=== PATIENT | male | born 1975 | race Caucasian/White ===

== ENCOUNTER 2020-03-15 08:56 | Outpatient (RCR) | payer OTHER, SELFPAY ==
--- NOTE | 2020-03-15 12:56 | MHC.PT.DC ---
[facility] [place] [facility] [place] [facility] [place] [facility] [address] Aman Douglass [address] [phone] F: [phone] F: [phone] F: [phone] F: [phone] Physical Therapy Discharge Report Diagnosis: M54.5 low back pain Date of Surgery: N/A Date of Evaluation: 02/20/20 Date of Discharge: 03/15/20 Treatments to Date: 7 Cancellations to Date: 1 No Shows to Date: 0 Discharge Status: Achieved Goals Discharge Summary: The patient has reported a statistically significant improvement in his self-reported outcome measure, Gisele. He has reached all goals established at the initial evaluation. He is independent with his home exercise program including management of his radicular symptoms. He reported he rarely gets pain in his calf anymore and it is localized to left glute. He requires less cueing for therapeutic exercises and is ready to discharge to home exercise program. Re-educated the patient to prioritize his repeated movements and left lower extremity stretching as maintenance for radicular symptoms. The patient is discharged from this physical therapy plan of care. Please sign and return to therapist. Thank you for your referral.
== END 2020-03-27 16:06 | disposition other institution (70) ==
LOC: HO.PT 08:56
PROVIDERS: PCP Internal Medicine; Visit Provider Internal Medicine
DX: M54.5 Low back pain (principal)
CPT/HCPCS: 97110

== ENCOUNTER 2020-05-18 08:11 | Outpatient (REF) | payer OTHER, SELFPAY | END 2020-05-18 08:12 | disposition home or self-care (01) | LOC: HO.LAB 08:11 | PROVIDERS: Visit Provider Internal Medicine | DX: Z13.89 Encounter for screening for other disorder (principal) ==

== ENCOUNTER 2020-08-31 07:09 | Outpatient (REF) | payer OTHER, SELFPAY ==
[2020-08-31 07:43] LABS: MANUAL DIFF FLAG NO
[2020-08-31 07:46] LABS: Glucose Urine UA NEG (NEG); Leukocyte Esterase Urine NEG (NEG); Nitrite Urine NEG (NEG); Specific Gravity - Urine 1.025 (1.005-1.025); Urine Blood NEG (NEG); Urine Ketones NEG (NEG); Urine Protein NEG (NEG-TRACE)
[2020-08-31 07:51] LABS: Appearance Urine CLEAR; Color Urine YELLOW
[2020-08-31 07:54] LABS: Basophils Percent Auto 0.8 % (0-2); Eosinophils Absolute Auto 0.1 X10*3/uL (0.0-0.4); Eosinophils Percent Auto 1.2 % (0-4); Hematocrit 44.9 % (42-52); Hemoglobin 15.6 g/dl (14.0-18.0); Imm Gran Abs Auto 0.03 X10*3/uL (0.00-0.03); Imm Gran Pct Auto 0.6 % (0.0-0.4); Lymphocytes Absolute Auto 1.8 X10*3/uL (1.2-4.9); Mean Corpuscular HGB Conc 34.7 g/dl (31.0-36.0); Mean Corpuscular Hemoglobin 31.7 pg (27.0-33.0); Mean Corpuscular Volume 91.3 fL (80-98); Mean Platelet Volume 10.6 fL (9.4-12.4); Monocytes Absolute Auto 0.6 X10*3/uL (0.1-1.2); Monocytes Percent Auto 12.3 % (2-11); Neutrophils Absolute Auto 2.6 X10*3/uL (2.0-8.3); Neutrophils Percent Auto 50.1 % (45-73); Platelet Count 245 X10*3/uL (160-400); Red Blood Count 4.92 X10*6/uL (4.60-5.80); Red Cell Distribution Width 12.8 % (11.0-16.0); White Blood Count 5.1 X10*3/uL (4.8-10.8)
[2020-08-31 08:04] LABS: RBC Urine 0 /HPF (0); WBC Urine 0 /HPF (0-4)
[2020-08-31 08:14] LABS: Alanine Aminotransferase 15 U/L (0-40); Albumin Level 4.2 g/dL (3.5-5.0); Alkaline Phosphatase 29 U/L (39-117); Anion Gap 11 (12-20); Aspartate Amino Transferase 14 U/L (5-37); Bilirubin Total 0.6 mg/dL (0.0-1.0); Blood Urea Nitrogen 13 mg/dL (9-16); Calcium 9.3 mg/dL (8.4-10.2); Carbon Dioxide 30 mmol/L (22-29); Chloride 103 mmol/L (96-108); Cholesterol 207 mg/dL; Estimated Glomerular Filt Rate > 60; Glucose Random 104 mg/dL (60-115); HDL Cholesterol 64 mg/dL; LDL Cholesterol Calculated 125 mg/dl; Potassium 4.6 mmol/L (3.3-5.1); Sodium 139 mmol/L (135-145); Total Protein 6.5 g/dL (6.5-8.0); Triglycerides 90 mg/dL
[2020-08-31 08:37] LABS: Free T4 (Free Thyroxine) 1.03 ng/dL (0.71-1.85); Prostate Specific Antigen Scr 1.27 ng/mL (<0.05-4.0); Thyroid Stimulating Hormone 1.23 uIU/mL (0.32-4.0)
[2020-09-02 04:37] LABS: Folate 11.9 ng/mL (> or = 4.0); Vitamin B12 458 pg/mL (200-900)
== END 2020-08-31 07:10 | disposition home or self-care (01) ==
LOC: HO.LAB 07:09
PROVIDERS: PCP Internal Medicine; Visit Provider Internal Medicine
DX: R35.0 Frequency of micturition (principal); E78.00 Pure hypercholesterolemia, unspecified; K21.9 Gastro-esophageal reflux disease without esophagitis
CPT/HCPCS: 36415; 80053; 80061; 81001; 82607; 82746; 84153; 84439; 84443; 85025

== ENCOUNTER 2020-09-17 10:51 | Outpatient (REF) | payer OTHER, SELFPAY ==
--- NOTE | ~2020-09-17 | US_ITS ---
EXAMINATION: US PELVIS LIMITED (BLADDER) CLINICAL INFORMATION: Frequency of micturition. COMPARISON: CT abdomen pelvis 03/17/2019. X-ray abdomen 01/06/2019. TECHNIQUE: Real-time imaging of the bladder. FINDINGS: BLADDER: Well distended and normal. Bilateral ureteral jets are demonstrated. Prevoid bladder volume is 782 mL. Postvoid bladder volume is 25 mL. The prostate gland measures 4.1 x 3 x 3.3 cm, volume 22 mL. US/US bladder IMPRESSION: Unremarkable exam..
== END 2020-09-17 10:52 | disposition home or self-care (01) ==
LOC: HO.US 10:51
PROVIDERS: Visit Provider Internal Medicine
DX: R35.0 Frequency of micturition (principal)
CPT/HCPCS: 76857

== ENCOUNTER 2020-10-13 10:46 | Emergency (ER) | payer OTHER, SELFPAY ==
--- NOTE | ~2020-10-13 | CT_ITS ---
EXAMINATION: CT ABDOMEN AND PELVIS WITHOUT CONTRAST CLINICAL INFORMATION: Abdominal flank pain. COMPARISON: None TECHNIQUE: Multidetector volumetric imaging was performed from the superior aspect of the liver through the pubic symphysis. Sagittal and coronal reformatted images were obtained on the technologist's workstation. This CT examination was performed using dose optimization techniques as appropriate, variously including the following: *Automated exposure control *Adjustment of mA and/or kV according to patient size (this includes techniques or standardized protocols for targeted exams where dose is matched to indication/reason for exam; i.e. extremities or head) *Use of iterative reconstruction technique DLP: 469 mGy-cm FINDINGS: LUNG BASES: The lung bases are clear. The heart size is normal. LIVER, GALLBLADDER, AND BILIARY TREE: The liver is normal in size, shape, and attenuation. No focal hepatic lesion or biliary ductal dilatation is present. The gallbladder is unremarkable with no evidence of radiopaque gallstones, gallbladder wall thickening, or obvious pericholecystic inflammatory changes. PANCREAS: Unremarkable. SPLEEN: Unremarkable. ADRENAL GLANDS: Unremarkable. KIDNEYS AND URETERS: The kidneys are normal in size, shape, and attenuation. No hydronephrosis, hydroureter, or calculi seen. There is bilateral perinephric stranding. BLADDER: Unremarkable. GASTROINTESTINAL TRACT: There is scattered stool and gas seen throughout the colon without any significant distention. The small bowel loops are normal caliber. Appendix is normal caliber. ABDOMINAL WALL: No significant hernia is appreciated. LYMPH NODES: Normal. VASCULAR: Unremarkable. PELVIC VISCERA: Unremarkable. OSSEOUS STRUCTURES: No lytic or sclerotic process seen. CT/CT abdomen pelvis wo con IMPRESSION: No acute intra-abdominal process seen. Mild constipation.
[2020-10-13 11:30] VITALS: BP 132/88; PULSE 71; RESP 16; TEMP 36.8; O2SAT 96; BMI 23.7
--- NOTE | 2020-10-13 14:27 | ED_ITS ---
HPI - Abdominal Pain General Chief Complaint: Abdominal Pain Stated Complaint: abd pain Time Seen by Provider: 10/13/20 14:23 Source: patient Mode of arrival: ambulatory Limitations: no limitations History of Present Illness HPI narrative: Otherwise healthy 45-year-old male without any significant past medical history not not taking any medications who presents ambulatory with complaint of left flank pain radiating to the left side abdomen ongoing for past 2 days states he played golf unsure here for over exert himself and also twisting and turning in bed however when his foot radiating to the front of the abdomen he became concerned. There is no associated nausea vomiting or diarrhea, no urinary symptoms specifically no dysuria, hematuria. No recent travel or sick contacts. No chest pain or shortness of breath, headache. MD elicited complaint: flank pain Pertinent past history: none Pain Consistency: constant Location: none Severity: moderate Quality: aching Radiation: none Migration to: no migration Exacerbating factors: nothing Associated symptoms: denies other symptoms Related Data Home Medications Medication Instructions Recorded Confirmed lorazepam 1 mg tablet 1 mg PO DAILY PRN 08/27/20 08/27/20 primidone 250 mg tablet 500 mg PO BEDTIME tab 08/27/20 08/27/20 propranolol 20 mg tablet 20 mg PO BID tab 08/27/20 08/27/20 vortioxetine 10 mg tablet 10 mg PO DAILY 08/27/20 08/27/20 Previous Rx's Medication Instructions Recorded cyclobenzaprine 5 mg PO BEDTIME PRN #14 tab 10/13/20 ibuprofen 800 mg PO Q8H PRN #14 tab 10/13/20 Allergies Allergy/AdvReac Type Severity Reaction Status Date / Time No Known Allergies Allergy Verified 04/24/20 06:53 [No Known Allergies*] Review of Systems Review of Systems Constitutional: No Weight loss, No Fever, No Chills, No Night Sweats, No Fatigue, No Malaise ENT/Mouth: No Hearing loss, No Ear Pain, No Nasal Congestion, No Sinus Pain, No Hoarseness, No sore throat, No Rhinorrhea, No Swallowing Difficulty Eyes: No Eye Pain, No Swelling, No Redness, No Foreign Body, No Discharge, No Vision Changes Cardiovascular: No Chest Pain, No SOB, No Dyspnea on Exertion, No Orthopnea, No Edema, No Palpitations Respiratory: No Cough, No Sputum, No Wheezing, No Smoke Exposure, No Dyspnea Gastrointestinal: No Nausea, No Vomiting, No Diarrhea, No Constipation, + abdominal Pain, No Hematochezia, No Melena Genitourinary: No Dysuria, No Urinary Frequency, No Hematuria, No Urinary Incontinence, No Urgency, + Flank Pain, No Urinary Flow Changes, No Hesitancy Musculoskeletal: No joint pain, No Myalgias, No Joint Swelling Skin: No Skin Lesions, No rash Neuro: No Weakness, No Numbness, No Paresthesias, No Loss of Consciousness, No Dizziness, No Headache Psych: No Social Issues Heme/Lymph: No Bruising, No Bleeding,No Lymphadenopathy Endocrine: No Polyuria, No Polydipsia, No Temperature Intolerance Yes all other systems are reviewed and are negative Physical Exam Vital Signs: Vital Signs: Last Vital Signs Temp 97.7 F 10/13/20 16:25 Pulse 64 10/13/20 16:25 Resp 18 10/13/20 16:25 BP 136/91 H 10/13/20 16:25 Pulse Ox 98 10/13/20 16:25 Body Mass Index 23.7 Reviewed Const: General: cooperative and healthy appearing; No acute distress or intoxicated appearing Nutritional Appearance: average body habitus Orientation/consciousness: patient oriented x3 HENMT: Head: Yes normal to inspection Ears: hearing grossly normal bilaterally Eyes: General: appearance normal, both eyes and all related structures Visual Chapman: normal visual chapman by confrontation Neck: Neck: Yes normal visual inspection, No positive Brudzinski's sign, No positive Kernig's sign and No tender Thyroid: Thyroid normal Chest: Chest palpation & inspection: normal inspection of the chest Resp: Effort & Inspection: normal respiratory effort Cardio: Jugular venous distension: no JVD Rhythm: regular rhythm Heart s ounds: S1 normal heart sound present and S2 normal heart sound present GI: Inspection: Yes normal to inspection Percussion: Yes normal to percussion Auscultation: normal bowel sounds : General: Yes no CVA tenderness Back/Spine/Pelvis: Back: no CVA tenderness Thoracic/Lumbar Spine: paraspinal muscle tenderness (TTP over the paraspinous muscle group. No rash.) on the left Skin: General skin exam: no rashes or lesions noted Neuro: General: patient oriented x3 Extrem: General: Yes normal to inspection Course Course Course Narrative: Labs overall reassuring. Feels better after Toradol. CT of the abdomen pelvis without any evidence of urine stone or obstructive pathology. Mild constipation has had normal bowel movement this morning. Overall doing well. Will discharge home with NSAID, cyclobenzaprine and return/worsen precautions in follow-up. Patient out of bed ambulatory status is. No low back pain red flags. Stable for discharge. MDM - Abdominal Pain Lab Data Result diagrams: 10/13/20 15:09 10/13/20 15:09 Labs: Lab Results 10/13/20 10/13/20 10/13/20 Range/Units 15:09 15:09 15:09 WBC 9.7 (4.8-10.8) X10*3/uL RBC 5.27 (4.60-5.80) X10*6/uL Hgb 16.7 (14.0-18.0) g/dl Hct 48.1 (42-52) % MCV 91.3 (80-98) fL MCH 31.7 (27.0-33.0) pg MCHC 34.7 (31.0-36.0) g/dl RDW 12.7 (11.0-16.0) % Plt Count 325 D (160-400) X10*3/uL MPV 9.8 (9.4-12.4) fL Immature Gran % (Auto) 0.3 (0.0-0.4) % Neut % (Auto) 64.4 (45-73) % Lymph % (Auto) 25.1 (20-40) % [place] % (Auto) 9.2 (2-11) % Eos % (Auto) 0.5 (0-4) % Baso % (Auto) 0.5 (0-2) % Lymph # (Auto) 2.4 (1.2-4.9) X10*3/uL [place] # (Auto) 0.9 (0.1-1.2) X10*3/uL Eos # (Auto) 0.1 (0.0-0.4) X10*3/uL Baso # (Auto) 0.1 (0.0-0.2) X10*3/uL Abs Immat Gran (auto) 0.03 (0.00-0.03) X10*3/uL Absolute Neuts (auto) 6.3 (2.0-8.3) X10*3/uL Absolute Nucleated RBC 0.000 (0.0-0.012) X10*3/uL Nucleated RBC % (auto) 0.0 (0.0-0.2) /100WBC PT 13.1 H (10.8-13.0) SEC INR 1.1 (0.9-1.1) Sodium 143 (135-145) mmol/L Potassium 4.2 (3.3-5.1) mmol/L Chloride 102 (96-108) mmol/L Carbon Dioxide 32 H (22-29) mmol/L Anion Gap 13 (12-20) BUN 14 (9-16) mg/dL Creatinine 0.96 (0.5-1.4) mg/dL Estim Creat Clear Calc 99.2 Estimated GFR > 60 Random Glucose 92 (60-115) mg/dL Calcium 9.5 (8.4-10.2) mg/dL Total Bilirubin 0.4 (0.0-1.0) mg/dL AST 19 (5-37) U/L ALT 18 (0-40) U/L Alkaline Phosphatase 40 D (39-117) U/L Total Protein 7.0 (6.5-8.0) g/dL Albumin 4.3 (3.5-5.0) g/dL Urine Color Urine Appearance Urine pH (5.0-8.0) Ur Specific [place] (1.005-1.025) Urine Protein (NEG-TRACE) MG/DL Urine Glucose (UA) (NEG) MG/DL Urine Ketones (NEG) MG/DL Urine Blood (NEG) Urine Nitrite (NEG) Ur Leukocyte Esterase (NEG) Urine RBC (0) /HPF Urine WBC (0-4) /HPF Ur Squamous Epith Cells /LPF Urine Bacteria /LPF 10/13/20 Range/Units 15:09 WBC (4.8-10.8) X10*3/uL RBC (4.60-5.80) X10*6/uL Hgb (14.0-18.0) g/dl Hct (42-52) % MCV (80-98) fL MCH (27.0-33.0) pg MCHC (31.0-36.0) g/dl RDW (11.0-16.0) % Plt Count (160-400) X10*3/uL MPV (9.4-12.4) fL Immature Gran % (Auto) (0.0-0.4) % Neut % (Auto) (45-73) % Lymph % (Auto) (20-40) % [place] % (Auto) (2-11) % Eos % (Auto) (0-4) % Baso % (Auto) (0-2) % Lymph # (Auto) (1.2-4.9) X10*3/uL [place] # (Auto) (0.1-1.2) X10*3/uL Eos # (Auto) (0.0-0.4) X10*3/uL Baso # (Auto) (0.0-0.2) X10*3/uL Abs Immat Gran (auto) (0.00-0.03) X10*3/uL Absolute Neuts (auto) (2.0-8.3) X10*3/uL Absolute Nucleated RBC (0.0-0.012) X10*3/uL Nucleated RBC % (auto) (0.0-0.2) /100WBC PT (10.8-13.0) SEC INR (0.9-1.1) Sodium (135-145) mmol/L Potassium (3.3-5.1) mmol/L Chloride (96-108) mmol/L Carbon Dioxide (22-29) mmol/L Anion Gap (12-20) BUN (9-16) mg/dL Creatinine (0.5-1.4) mg/dL Estim Creat Clear Calc Estimated GFR Random Glucose (60-115) mg/dL Calcium (8.4-10.2) mg/dL Total Bilirubin (0.0-1.0) mg/dL AST (5-37) U/L ALT (0-40) U/L Alkaline Phosphatase (39-117) U/L Total Protein (6.5-8.0) g/dL Albumin (3.5-5.0) g/dL Urine Color YELLOW Urine Appearance CLEAR Urine pH 6.5 (5.0-8.0) Ur Specific [place] 1.020 (1.005-1.025) Urine Protein NEG (NEG-TRACE) MG/DL Urine Glucose (UA) NEG (NEG) MG/DL Urine Ketones NEG (NEG) MG/DL Urine Blood NEG (NEG) Urine Nitrite NEG (NEG) Ur Leukocyte Esterase NEG (NEG) Urine RBC 0 (0) /HPF Urine WBC 0 (0-4) /HPF Ur Squamous Epith Cells TRACE /LPF Urine Bacteria NONE /LPF Discharge Plan Discharge Clinical Impression: Back pain Qualifiers: Back pain location: back pain in unspecified location Chronicity: acute Back pain laterality: unspecified Qualified Code(s): M54.9 - Dorsalgia, unspecified Patient Disposition: Home, Self-Care Instructions: Lower Back Exercises (ED), Core Strengthening Exercises (ED) Additional Instructions: Your blood work was overall reassuring Urine test was negative and did not show any evidence of infection or blood The CT scan of your abdomen and pelvis was within normal limits The pain your having is likely pulled muscle and for this she did take muscle relaxant at bedtime and ibuprofen Warm compresses Gentle stretching Return if any concerns or worsening symptoms including fever, worsening abdominal pain, nausea, vomiting, diarrhea, chest pain, shortness of breath or any other concerning symptoms. Otherwise I would like for you to follow-up with her primary care doctor Thank you Prescriptions: New cyclobenzaprine 5 mg tablet 5 mg PO BEDTIME PRN (Reason: muscle spasm) Qty: 14 RF: 0 ibuprofen 800 mg tablet 800 mg PO Q8H PRN (Reason: pain) Qty: 14 RF: 0 No Action lorazepam 1 mg tablet 1 mg PO DAILY PRNRF: 0 primidone 250 mg tablet 500 mg PO BEDTIME RF: 0 Trintellix 10 mg tablet 10 mg PO DAILY RF: 0 propranolol 20 mg tablet 20 mg PO BID RF: 0 Referrals: Po,Brady Roberto MD [Primary Care Provider] - 1 week Interventions: ED Discharge Assessment Last Done: 10/13/20 16:44 Discharge Date/Time: 10/13/20 16:45 [facility] Past Medical History Medical History Anxiety Fatty liver GERD (gastroesophageal reflux disease) Irritable bowel syndrome Panniculitis Rib fractures Vitamin D deficiency Surgical History (Updated 04/24/20 @ 06:54 by CADE Coleman) History of removal of skin mole Family History Family History (Updated 08/27/20 @ 15:32 by Brady Krishna MD) Father Lung cancer Parkinson disease Mother Alive and well Paternal Aunt Lung cancer Social History Social History (Updated 08/27/20 @ 15:33 by Brady Krishna MD) Alcohol intake: never Smoking Status: Never smoker Years Smoked: 20 years old Use of substances other than those prescribed or required for medical reasons: No Advance Directives: No Advance Directives Information Provided: No
[2020-10-13] MEDS: 0.9 % Sodium Chloride 1,000 ML 999 ML IV (15:09)
[2020-10-13 15:15] LABS: MANUAL DIFF FLAG NO
[2020-10-13 15:16] VITALS: BP 134/84; PULSE 64; RESP 16; TEMP 36.6; O2SAT 100
[2020-10-13 15:18] LABS: Basophils Absolute Auto 0.1 X10*3/uL (0.0-0.2); Basophils Percent Auto 0.5 % (0-2); Eosinophils Absolute Auto 0.1 X10*3/uL (0.0-0.4); Eosinophils Percent Auto 0.5 % (0-4); Hematocrit 48.1 % (42-52); Hemoglobin 16.7 g/dl (14.0-18.0); Imm Gran Abs Auto 0.03 X10*3/uL (0.00-0.03); Imm Gran Pct Auto 0.3 % (0.0-0.4); Lymphocytes Absolute Auto 2.4 X10*3/uL (1.2-4.9); Lymphocytes Percent Auto 25.1 % (20-40); Mean Corpuscular HGB Conc 34.7 g/dl (31.0-36.0); Mean Corpuscular Hemoglobin 31.7 pg (27.0-33.0); Mean Corpuscular Volume 91.3 fL (80-98); Mean Platelet Volume 9.8 fL (9.4-12.4); Monocytes Absolute Auto 0.9 X10*3/uL (0.1-1.2); Monocytes Percent Auto 9.2 % (2-11); Neutrophils Absolute Auto 6.3 X10*3/uL (2.0-8.3); Neutrophils Percent Auto 64.4 % (45-73); Platelet Count 325 X10*3/uL (160-400); Red Blood Count 5.27 X10*6/uL (4.60-5.80); Red Cell Distribution Width 12.7 % (11.0-16.0); White Blood Count 9.7 X10*3/uL (4.8-10.8)
[2020-10-13 15:23] LABS: Glucose Urine UA NEG (NEG); INTERNATIONAL NORM RATIO 1.1 (0.9-1.1); Leukocyte Esterase Urine NEG (NEG); Nitrite Urine NEG (NEG); PH 6.5 (5.0-8.0); Prothrombin Time 13.1 SEC (10.8-13.0); Urine Blood NEG (NEG); Urine Ketones NEG (NEG); Urine Protein NEG (NEG-TRACE)
[2020-10-13 15:26] LABS: Appearance Urine CLEAR; Color Urine YELLOW
[2020-10-13 15:55] LABS: Alanine Aminotransferase 18 U/L (0-40); Albumin Level 4.3 g/dL (3.5-5.0); Alkaline Phosphatase 40 U/L (39-117); Anion Gap 13 (12-20); Aspartate Amino Transferase 19 U/L (5-37); Bilirubin Total 0.4 mg/dL (0.0-1.0); Blood Urea Nitrogen 14 mg/dL (9-16); Calcium 9.5 mg/dL (8.4-10.2); Carbon Dioxide 32 mmol/L (22-29); Chloride 102 mmol/L (96-108); Creatinine Clr Calc Pharmacy 99.2; Estimated Glomerular Filt Rate > 60; Glucose Random 92 mg/dL (60-115); Potassium 4.2 mmol/L (3.3-5.1); Sodium 143 mmol/L (135-145)
[2020-10-13 16:25] VITALS: BP 136/91; PULSE 64; RESP 18; TEMP 36.5; O2SAT 98
[2020-10-13 16:32] LABS: RBC Urine 0 /HPF (0); Squamous Epithelial Cell Urine TRACE /LPF; WBC Urine 0 /HPF (0-4)
== END 2020-10-13 16:45 | disposition home or self-care (01) ==
PROVIDERS: Nurse Practitioner Primary Care; Emergency Provider Emergency Medicine; PCP Internal Medicine
DX: M54.9 Dorsalgia, unspecified (principal); R10.9 Unspecified abdominal pain
CPT/HCPCS: 36415; 74176; 80053; 81001; 85025; 85610; 96361; 96374; 99284

== ENCOUNTER 2020-10-17 13:06 | Outpatient (REF) | payer OTHER, SELFPAY ==
--- NOTE | ~2020-10-17 | XR_ITS ---
EXAMINATION: XR CHEST CLINICAL INFORMATION: Chest pain COMPARISON: March 17, 2019 TECHNIQUE: 2 views of the chest were obtained. FINDINGS: No significant abnormality is noted involving the heart, lungs, mediastinum, bony thorax or soft tissues. XR/XR chest 2V IMPRESSION: No acute disease.
[2020-10-17 14:14] LABS: MANUAL DIFF FLAG NO
[2020-10-17 14:26] LABS: Basophils Percent Auto 0.5 % (0-2); Eosinophils Absolute Auto 0.1 X10*3/uL (0.0-0.4); Eosinophils Percent Auto 0.9 % (0-4); Hematocrit 44.7 % (42-52); Hemoglobin 15.4 g/dl (14.0-18.0); Imm Gran Abs Auto 0.02 X10*3/uL (0.00-0.03); Imm Gran Pct Auto 0.3 % (0.0-0.4); Lymphocytes Absolute Auto 1.4 X10*3/uL (1.2-4.9); Lymphocytes Percent Auto 20.8 % (20-40); Mean Corpuscular HGB Conc 34.5 g/dl (31.0-36.0); Mean Corpuscular Hemoglobin 31.2 pg (27.0-33.0); Mean Corpuscular Volume 90.5 fL (80-98); Mean Platelet Volume 10.4 fL (9.4-12.4); Monocytes Absolute Auto 0.7 X10*3/uL (0.1-1.2); Monocytes Percent Auto 10.3 % (2-11); Neutrophils Absolute Auto 4.4 X10*3/uL (2.0-8.3); Neutrophils Percent Auto 67.2 % (45-73); Platelet Count 260 X10*3/uL (160-400); Red Blood Count 4.94 X10*6/uL (4.60-5.80); Red Cell Distribution Width 12.2 % (11.0-16.0); White Blood Count 6.5 X10*3/uL (4.8-10.8)
[2020-10-17 14:42] LABS: Anion Gap 14 (12-20); Blood Urea Nitrogen 13 mg/dL (9-16); Calcium 9.5 mg/dL (8.4-10.2); Carbon Dioxide 27 mmol/L (22-29); Chloride 102 mmol/L (96-108); Estimated Glomerular Filt Rate > 60; Glucose Random 100 mg/dL (60-115); Potassium 3.9 mmol/L (3.3-5.1); Sodium 139 mmol/L (135-145)
== END 2020-10-17 13:07 | disposition home or self-care (01) ==
LOC: HO.HMGCX 13:06
PROVIDERS: PCP Internal Medicine; Visit Provider Nurse Practitioner Family
DX: R07.89 Other chest pain (principal); R10.9 Unspecified abdominal pain
CPT/HCPCS: 36415; 71046; 80048; 85025

== ENCOUNTER → 2021-07-24 12:50 | Outpatient (BNVA) | payer OTHER, SELFPAY | PROVIDERS: PCP Internal Medicine; Referring Provider Internal Medicine; Visit Provider Surgery | DX: K82.4 Cholesterolosis of gallbladder (principal) | CPT/HCPCS: 99202 ==

== ENCOUNTER → 2021-08-07 07:43 | Outpatient (REF) | payer OTHER, SELFPAY ==
--- NOTE | ~2021-08-07 | NM_ITS ---
EXAMINATION: NM BILIARY TRACT WITH ORAL FATTY MEAL CLINICAL INFORMATION: Cholesterolosis of gallbladder. COMPARISON: No previous biliary scan is available for comparison. The diagnostic CT scan of the abdomen and pelvis, dated 10/13/2020, is available for comparison. TECHNIQUE: Serial gamma scintillation camera images were obtained over the abdomen for a total observation period of 125 minutes following the intravenous administration of 5.0 mCi Tc-99m Mebrofenin. FINDINGS: There is good concentration of activity in the liver by 5 minutes post injection. Biliary activity is visualized by 10 minutes. The gallbladder is well visualized by 20 minutes. Small bowel is well visualized by 50 minutes. At 60 minutes post Mebrofenin injection, 8 ounces of Ensure-plus Brand was administered orally and an additional 60 minutes of images were obtained. There is good emptying of the gallbladder following ingestion of the fatty meal. At the end of the study there is good clearance of activity from the liver and visualization of diffuse small bowel activity. The calculated gallbladder ejection fraction is 93% (normal gallbladder ejection fraction using Ensure supplement orally is greater than 33%). NM/NM hepatobiliary wo pharm IMPRESSION: Visualization of the gallbladder is evidence of a patent cystic duct and strong evidence against the diagnosis of acute cholecystitis. The common bile duct is patent. Gallbladder emptying and ejection fraction are normal. Liver function appears normal.
== END ==
LOC: HO.NUCMED 07:43
PROVIDERS: PCP Internal Medicine; Visit Provider Surgery
DX: K82.4 Cholesterolosis of gallbladder (principal)
CPT/HCPCS: 78226; A9537

== ENCOUNTER → 2021-08-15 11:14 | Outpatient (BNVA) | payer OTHER, SELFPAY | PROVIDERS: PCP Internal Medicine; Referring Provider Internal Medicine; Visit Provider Surgery | DX: R10.11 Right upper quadrant pain (principal) | CPT/HCPCS: 99212 ==

== ENCOUNTER → 2021-10-07 13:04 | Outpatient (BNVA) | payer OTHER, SELFPAY | PROVIDERS: PCP Internal Medicine; Referring Provider Internal Medicine; Visit Provider Nurse Practitioner | DX: Z13.89 Encounter for screening for other disorder (principal) ==

== ENCOUNTER 2022-03-14 09:22 | Emergency (ER) | payer OTHER, MEDICAID, SELFPAY ==
--- NOTE | ~2022-03-14 | CT_ITS ---
EXAMINATION: CT ABDOMEN AND PELVIS WITH CONTRAST CLINICAL INFORMATION: Abdominal pain COMPARISON: CT abdomen pelvis 10/31/2020 and 08/04/2018 TECHNIQUE: Multidetector volumetric images were obtained from the superior aspect of the liver through the pubic symphysis following administration 85 mL of Omnipaque 350 intravenous contrast. Sagittal and coronal reformatted images were obtained on the technologist's workstation. Oral contrast: No This CT examination was performed using dose optimization techniques as appropriate, variously including the following: *Automated exposure control *Adjustment of mA and/or kV according to patient size (this includes techniques or standardized protocols for targeted exams where dose is matched to indication/reason for exam; i.e. extremities or head) *Use of iterative reconstruction technique DLP: 534 mGy-cm FINDINGS: LUNG BASES: Unremarkable. ABDOMINAL AND PELVIC WALL: Small fat-containing umbilical hernia. LIVER AND BILIARY TREE: Ill-defined 1.8 cm hypoattenuating liver lesion in the hepatic dome, 3:9. Hepatic hypodensity too small to characterize. GALLBLADDER: Unremarkable. PANCREAS: Unremarkable. SPLEEN: Unremarkable. ADRENAL GLANDS: Unremarkable. KIDNEYS AND URETERS: Unremarkable. GASTROINTESTINAL TRACT: Chronic diverticulosis without evidence of diverticulitis. Normal appendix. VASCULAR: Unremarkable. LYMPH NODES/PERITONEUM: Tammie appearance of the central mesentery with small mesenteric nodes similar to prior which could be seen in the setting of mesenteric panniculitis. FREE FLUID: None. BLADDER: Slight asymmetric wall thickening involving the anterior bladder wall. PELVIC VISCERA: Unremarkable. OSSEOUS STRUCTURES: Stable nonspecific sclerotic lesion in the left iliac bone unchanged from 2019. CT/CT abdomen pelvis w IV con IMPRESSION: Tammie appearance of the central mesentery with small mesenteric nodes similar to prior which could be seen in the setting of mesenteric panniculitis. Slight asymmetric wall thickening involving the anterior bladder wall. Recommend correlation with symptoms of cystitis and urologic evaluation given the wall thickening is asymmetric. Ill-defined indeterminate 1.8 cm hypoattenuating liver lesion in the hepatic dome. Recommend further evaluation with contrast-enhanced MR abdomen.
[2022-03-14 09:25] VITALS: BP 155/95; PULSE 65; RESP 18; TEMP 36.8; O2SAT 98; BMI 25.8
--- OUTSIDE RECORDS SUMMARY | 2022-03-14 10:19 | XMS_ITS ---
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 ALLERGIES No Known Allergies ENCOUNTERS Encounter Location Date Diagnosis [address] Feb, Non -pressure chronic [place], [place] ulcer [place] [id number] left foot with f at layer exposed L9 7.522 ; Skin disease L98 .9 ; Ingrowing nail L 60.0 and Tinea unguiu m B35.[address] Jan, [place], [place] [address] Jan, Ski n disease L98.9 ; [place], [place] Ingrowing nail L60.0 ; Tinea unguium B3 5.1 and Cellulitis of le ft toe L03.032 IMMUNIZATIONS Vaccine Route Administration Date Status COVID-19 [employer]or Unknown Mar 14, 2021 Administered SOCIAL HISTORY Qualifiers Date Never Smoker REASON FOR REFERRAL Referring Provider First Name Brady Referring Provider Last Name Po Referred Organization [facility] Referred Provider Tam Peck Referred Address [address] [place] [id number] Referred Provider Specialty Podiatry FUNCTIONAL STATUS PLAN OF CARE Activity Details Follow Up prn Reason: Referral Tam Peck, [address] [place] [address], [id number], [email or web address], Future/Pending Procedure [id number] SKIN/TISSUE VITAL SIGNS Height 5 ft 11 in in 2022-02-23 Weight 175 lbs 2022-02-23 BMI 24.40 kg/m2 2022-02-23 Blood pressure systolic 120 mm Hg 2022-02-23 Blood pressure diastolic 80 mm Hg 2022-02-23 MEDICATIONS Medication Instructions Dosage Frequency Start End Duration Statu s Date Date Topiramate Active busPIRone HCl as directed Active 15 MG Primidone 250 Orally Once a 1 tablet 24h Act che MG day Propranolol HCl Orally Once a 1 tablet 24h A ctive 20 MG day PROCEDURES Procedure Date Ordered Result Body Site Avulsion Plate Feb 02, 2022 DEBRIDE SKIN/TISSUE Feb 23, 2022 RESULTS No Results REASON FOR VISIT Insurance Providers [facility] Patient Patient Patient Patient Patient Subscriber Subscriber Subscriber Group Insurance Plan Plan Plan Plan ID Relationship Address Phone Name Date of ID Name Date of No Type Insurance Insurance Insurance Coverage to Subscriber Address Phone Name Dates [facility] [phone] [facility] saran [place] [id number] [place] [id number] [address] [address] MEDICAL (GENERAL) HISTORY Type Description Date Medical History Anxiety Medical History Fatty liver Medical History Reflux Medical History Irritable bowel syndrome Medical History Vitamin D deficiency Medical History Chicken pox Surgical History Mole removal
--- NOTE | 2022-03-14 10:32 | ED_ITS ---
HPI - Abdominal Pain General Chief Complaint: Abdominal Pain Stated Complaint: abd pain Time Seen by Provider: 03/14/22 10:18 Source: patient Mode of arrival: ambulatory Limitations: no limitations History of Present Illness HPI narrative: 46 yo male presents to the ER for evaluation of vague abdominal pains for the last 1-2 weeks. He has a hard time describing his symptoms but reports intermittent aching abdomen, all over. He feels bloated and his symptoms lasted all day yesterday. He cannot say where the pain starts or if it migrates but is sort of all over. He has no nausea, vomiting or diarrhea. Last BM today and was normal. No new foods and he reports his diet does not contain a significant amount of dairy, fats or processed foods. No chest pain, SOB, fever, chills or urinary symptoms. MD elicited complaint: abdominal pain Pertinent past history: none Onset (ago): week(s) Pain Consistency: intermittent Location: diffuse Severity: moderate Quality: aching Radiation: none Migration to: no migration Exacerbating factors: nothing Relieving factors: nothing Associated symptoms: denies other symptoms Related Data Home Medications Medication Instructions Recorded Confirmed lorazepam 1 mg tablet 1 mg PO DAILY PRN 08/27/20 10/08/21 mirtazapine 7.5 mg tablet 7.5 mg PO BEDTIME 07/02/21 10/08/21 oxcarbazepine 300 mg tablet 300 mg PO BID 07/02/21 10/08/21 topiramate 50 mg tablet 50 mg PO DAILY 07/02/21 10/08/21 primidone 250 mg tablet 500 mg PO BEDTIME 10/08/21 10/08/21 propranolol 20 mg tablet 20 mg PO .QD 10/08/21 10/08/21 Previous Rx's Medication Instructions Recorded dicyclomine 20 mg tablet 20 mg PO QID PRN CRAMPING 30 days 10/07/21 #120 tabs buspirone 5 mg tablet 5 mg PO BID #60 tabs 10/08/21 cephalexin 500 mg capsule 500 mg PO BID #14 caps 01/27/22 ibuprofen 600 mg tablet 600 mg PO Q8H PRN pain #20 tabs 03/14/22 Allergies Allergy/AdvReac Type Severity Reaction Status Date / Time No Known Allergies Allergy Verified 01/27/22 16:48 [No Known Allergies*] Review of Systems Review of Systems Constitutional: No Fever, No Chills ENT/Mouth: No sore throat, No Rhinorrhea, No Swallowing Difficulty Cardiovascular: No Chest Pain, No SOB Respiratory: No Cough, No Sputum, No Wheezing, No dyspnea Gastrointestinal: No Nausea, No Vomiting, No Diarrhea, + abdominal Pain, No Hematochezia, No Melena, No Constipation Genitourinary: No Dysuria, No Urinary Frequency, No Hematuria Musculoskeletal: No joint pain, No Myalgias Skin: No Skin Lesions, No rash Neuro: No Weakness, No Numbness, No Dizziness, No Headache Psych: No Anxiety/Panic, No Depression Heme/Lymph: No Bruising, No Lymphadenopathy Endocrine: No Polyuria, No Polydipsia PMFSH Past Medical History Medical History Anxiety Fatty liver GERD (gastroesophageal reflux disease) Irritable bowel syndrome Panniculitis Rib fractures Vitamin D deficiency Surgical History History of removal of skin mole Family History Family History Father Lung cancer Parkinson disease Mother Alive and well Paternal Aunt Lung cancer Paternal Aunt Breast cancer Social History Social History (Updated 10/08/21 @ 12:29 by Brady Krishna MD) Housing: House Alcohol intake: current Alcohol intake frequency: a few times a month Patient Tobacco Use Status: Never used Tobacco e-Cigarette/Vaping Use: Never Used Second Hand Smoke Exposure: No Advance Directives: No Advance Directives Information Provided: No Current occupational status: employed Cognitive needs: No Hearing needs: No Vision needs: No Physical Exam ED Vital Signs: Vital Signs - 24 hr 03/14/22 09:25 03/14/22 10:34 03/14/22 10:52 Temperature 98.2 F 98.7 F 98.7 F Pulse Rate 65 58 58 Respiratory Rate 18 14 16 Blood Pressure 155/95 H 128/86 128/87 Pulse Oximetry 98 100 98 Oxygen Delivery Method Room Air Room Air Room Air 03/14/22 12:23 Temperature 98.2 F Pulse Rate 53 Respiratory Rate 14 Blood Pressure 119/75 Pulse Oximetry 100 Oxygen Delivery Method Room Air BMI result Body Mass Index 25.8 Appearance: Alert. Oriented X3. No acute distress. Eyes: Pupils equal, round and reactive to light. ENT: Pharynx normal. Neck: Normal inspection. Neck supple. CVS: Normal heart rate and rhythm. Pulses normal. Respiratory: No respiratory distress. Breath sounds normal. Abdomen: Soft and nontender. +BS x4 Skin: Skin warm and dry. Normal skin color. Normal skin turgor. No rashes. Extremities: No lower extremity edema. Neuro: Oriented X 3. No motor deficit. No sensory deficit. Course Course Course Narrative: 46 yo male presenting with vague abdominal symptoms for the last 2 weeks, aching intermittent discomforts not at one location. Exam is benign. Will check basic labs. Reevaluation(s) Reevaluation #1: Labs unremarkable. Will get CT scan for further evaluation. Reevaluation #2: CT scan showing Tammie appearance of the central mesentery with small mesenteric nodes similar to prior which could be seen in the setting of mesenteric panniculitis. ? Slight asymmetric wall thickening involving the anterior bladder wall. Recommend correlation with symptoms of cystitis and urologic evaluation given the wall thickening is asymmetric. ? Ill-defined indeterminate 1.8 cm hypoattenuating liver lesion in the hepatic dome. Recommend further evaluation with contrast-enhanced MR abdomen. d/w Dr. Stokes - treatment is NSAIDS and supportive care. will also have him follow up with GI. results d/w patient and he is stable for d/c home. MDM - Abdominal Pain Lab Data Result diagrams: 03/14/22 10:29 03/14/22 10:29 Labs: Lab Results 03/14/22 03/14/22 03/14/22 Range/Units 10:29 10:29 10:29 WBC 4.9 (4.8-10.8) X10*3/uL RBC 5.01 (4.60-5.80) X10*6/uL Hgb 15.2 (14.0-18.0) g/dl Hct 44.4 (42.0-52.0) % MCV 88.6 (80.0-98.0) fL MCH 30.3 (27.0-33.0) pg MCHC 34.2 (31.0-36.0) g/dl RDW 12.5 (11.0-16.0) % Plt Count 263 (160-400) X10*3/uL MPV 10.3 (9.4-12.4) fL Immature Gran % (Auto) 0.4 (0.0-0.4) % Neut % (Auto) 58.1 (45-73) % Lymph % (Auto) 28.7 (20-40) % [place] % (Auto) 11.2 H (2-11) % Eos % (Auto) 0.8 (0-4) % Baso % (Auto) 0.8 (0-2) % Lymph # (Auto) 1.4 (1.2-4.9) X10*3/uL [place] # (Auto) 0.6 (0.1-1.2) X10*3/uL Eos # (Auto) 0.0 (0.0-0.4) X10*3/uL Baso # (Auto) 0.0 (0.0-0.2) X10*3/uL Abs Immat Gran (auto) 0.02 (0.00-0.03) X10*3/uL Absolute Neuts (auto) 2.9 (2.0-8.3) x10*3/uL Absolute Nucleated RBC 0.000 (0.0-0.012) X10*3/uL Nucleated RBC % (auto) 0.0 (0.0-0.2) /100WBC Sodium 142 (135-145) mmol/L Potassium 4.8 D (3.3-5.1) mmol/L Chloride 107 (96-108) mmol/L Carbon Dioxide 27 (22-29) mmol/L Anion Gap 13 (12-20) BUN 13 (9-16) mg/dL Creatinine 1.17 (0.5-1.4) mg/dL Estim Creat Clear Calc 80.5 Estimated GFR > 60 Random Glucose 115 (60-115) mg/dL Calcium 9.7 (8.4-10.2) mg/dL Magnesium 2.0 (1.6-2.6) mg/dL Total Bilirubin 0.5 (0.0-1.0) mg/dL Direct Bilirubin 0.2 (0.0-0.5) mg/dL AST 13 (5-37) U/L ALT 17 (0-40) U/L Alkaline Phosphatase 37 L (39-117) U/L Total Protein 6.6 (6.5-8.0) g/dL Albumin 4.2 (3.5-5.0) g/dL Lipase 29 (8-78) U/L Urine Color Urine Appearance Urine pH (5.0-9.0) Ur Specific [place] (1.005-1.025) Urine Protein (Neg-Trace) mg/dL Urine Glucose (UA) (Negative) mg/dL Urine Ketones (Negative) mg/dL Urine Blood (Negative) Urine Nitrite (Negative) Ur Leukocyte Esterase (Negative) Urine Opiates Screen (Not Detect) Urine Fentanyl Screen (Not Detect) Ur Barbiturates Screen (Not Detect) Ur Phencyclidine Scrn (Not Detect) Ur Amphetamines Screen (Not Detect) U Benzodiazepines Scrn (Not Detect) Urine Cocaine Screen (Not Detect) U Marijuana (THC) Screen (Not Detect) Ethyl Alcohol < 10 mg/dL COVID-19 (APRIL) Negative (Negative) COVID-19 Clin Com See Note 03/14/22 03/14/22 Range/Units 11:13 11:13 WBC (4.8-10.8) X10*3/uL RBC (4.60-5.80) X10*6/uL Hgb (14.0-18.0) g/dl Hct (42.0-52.0) % MCV (80.0-98.0) fL MCH (27.0-33.0) pg MCHC (31.0-36.0) g/dl RDW (11.0-16.0) % Plt Count (160-400) X10*3/uL MPV (9.4-12.4) fL Immature Gran % (Auto) (0.0-0.4) % Neut % (Auto) (45-73) % Lymph % (Auto) (20-40) % [place] % (Auto) (2-11) % Eos % (Auto) (0-4) % Baso % (Auto) (0-2) % Lymph # (Auto) (1.2-4.9) X10*3/uL [place] # (Auto) (0.1-1.2) X10*3/uL Eos # (Auto) (0.0-0.4) X10*3/uL Baso # (Auto) (0.0-0.2) X10*3/uL Abs Immat Gran (auto) (0.00-0.03) X10*3/uL Absolute Neuts (auto) (2.0-8.3) x10*3/uL Absolute Nucleated RBC (0.0-0.012) X10*3/uL Nucleated RBC % (auto) (0.0-0.2) /100WBC Sodium (135-145) mmol/L Potassium (3.3-5.1) mmol/L Chloride (96-108) mmol/L Carbon Dioxide (22-29) mmol/L Anion Gap (12-20) BUN (9-16) mg/dL Creatinine (0.5-1.4) mg/dL Estim Creat Clear Calc Estimated GFR Random Glucose (60-115) mg/dL Calcium (8.4-10.2) mg/dL Magnesium (1.6-2.6) mg/dL Total Bilirubin (0.0-1.0) mg/dL Direct Bilirubin (0.0-0.5) mg/dL AST (5-37) U/L ALT (0-40) U/L Alkaline Phosphatase (39-117) U/L Total Protein (6.5-8.0) g/dL Albumin (3.5-5.0) g/dL Lipase (8-78) U/L Urine Color Yellow Urine Appearance Clear Urine pH 7.5 (5.0-9.0) Ur Specific [place] 1.010 (1.005-1.025) Urine Protein Negative (Neg-Trace) mg/dL Urine Glucose (UA) Negative (Negative) mg/dL Urine Ketones Negative (Negative) mg/dL Urine Blood Negative (Negative) Urine Nitrite Negative (Negative) Ur Leukocyte Esterase Negative (Negative) Urine Opiates Screen Not Detected (Not Detect) Urine Fentanyl Screen Not Detected (Not Detect) Ur Barbiturates Screen POSITIVE H (Not Detect) Ur Phencyclidine Scrn Not Detected (Not Detect) Ur Amphetamines Screen Not Detected (Not Detect) U Benzodiazepines Scrn Not Detected (Not Detect) Urine Cocaine Screen Not Detected (Not Detect) U Marijuana (THC) Screen Not Detected (Not Detect) Ethyl Alcohol mg/dL COVID-19 (APRIL) (Negative) COVID-19 Clin Com Discharge Plan Discharge Clinical Impression: Mesenteric panniculitis Patient Disposition: Home, Self-Care Instructions: Mesenteric Adenitis (ED) Additional Instructions: Your lab workup today was normal. Your urine test was normal. Your CT scan today showed Tammie appearance of the central mesentery with small mesenteric nodes similar to prior which could be seen in the setting of mesenteric panniculitis.? Slight asymmetric wall thickening involving the anterior bladder wall. Recommend correlation with symptoms of cystitis and urologic evaluation given the wall thickening is asymmetric. Ill-defined indeterminate 1.8 cm hypoattenuating liver lesion in the hepatic dome. Recommend further evaluation with contrast-enhanced MR abdomen. The treatment for this is anti-inflammatory medications. Stick to a bland diet way or not feeling well. Recommend following up with GI if you continue to have symptoms. Also recommend following up with your PCP. If you have worsening symptoms come back to the ER for further evaluation Prescriptions: New ibuprofen 600 mg tablet 600 mg PO Q8H PRN (Reason: pain) Qty: 20 0RF No Action lorazepam 1 mg tablet 1 mg PO DAILY PRN primidone 250 mg tablet 500 mg PO BEDTIME Rx Instructions: TREMORS propranolol 20 mg tablet 20 mg PO .QD Rx Instructions: TREMORS mirtazapine 7.5 mg tablet 7.5 mg PO BEDTIME topiramate 50 mg tablet 50 mg PO DAILY oxcarbazepine 300 mg tablet 300 mg PO BID cephalexin 500 mg capsule 500 mg PO BID Qty: 14 0RF buspirone 5 mg tablet 5 mg PO BID Qty: 60 0RF dicyclomine 20 mg tablet 20 mg PO QID PRN (Reason: CRAMPING) 30 Days Qty: 120 3RF Referrals: [facility] [Provider Group]
[2022-03-14 10:33] LABS: MANUAL DIFF FLAG NO
[2022-03-14 10:34] VITALS: BP 128/86; PULSE 58; RESP 14; TEMP 37.1; O2SAT 100
[2022-03-14 10:39] LABS: Basophils Percent Auto 0.8 % (0-2); Eosinophils Percent Auto 0.8 % (0-4); Hematocrit 44.4 % (42.0-52.0); Hemoglobin 15.2 g/dl (14.0-18.0); Imm Gran Abs Auto 0.02 X10*3/uL (0.00-0.03); Imm Gran Pct Auto 0.4 % (0.0-0.4); Lymphocytes Absolute Auto 1.4 X10*3/uL (1.2-4.9); Lymphocytes Percent Auto 28.7 % (20-40); Mean Corpuscular HGB Conc 34.2 g/dl (31.0-36.0); Mean Corpuscular Hemoglobin 30.3 pg (27.0-33.0); Mean Corpuscular Volume 88.6 fL (80.0-98.0); Mean Platelet Volume 10.3 fL (9.4-12.4); Monocytes Absolute Auto 0.6 X10*3/uL (0.1-1.2); Monocytes Percent Auto 11.2 % (2-11); Neutrophils Absolute Auto 2.9 x10*3/uL (2.0-8.3); Neutrophils Percent Auto 58.1 % (45-73); Platelet Count 263 X10*3/uL (160-400); Red Blood Count 5.01 X10*6/uL (4.60-5.80); Red Cell Distribution Width 12.5 % (11.0-16.0); White Blood Count 4.9 X10*3/uL (4.8-10.8)
[2022-03-14 10:51] LABS: Alanine Aminotransferase 17 U/L (0-40); Albumin Level 4.2 g/dL (3.5-5.0); Alkaline Phosphatase 37 U/L (39-117); Anion Gap 13 (12-20); Aspartate Amino Transferase 13 U/L (5-37); Bilirubin Direct 0.2 mg/dL (0.0-0.5); Bilirubin Total 0.5 mg/dL (0.0-1.0); Blood Urea Nitrogen 13 mg/dL (9-16); Calcium 9.7 mg/dL (8.4-10.2); Carbon Dioxide 27 mmol/L (22-29); Chloride 107 mmol/L (96-108); Creatinine Clr Calc Pharmacy 80.5; Estimated Glomerular Filt Rate > 60; Ethanol < 10 mg/dL; Glucose Random 115 mg/dL (60-115); Lipase 29 U/L (8-78); Potassium 4.8 mmol/L (3.3-5.1); Sodium 142 mmol/L (135-145); Total Protein 6.6 g/dL (6.5-8.0)
[2022-03-14 10:52] VITALS: BP 128/87; PULSE 58; RESP 16; TEMP 37.1; O2SAT 98
[2022-03-14 10:52] LABS: COVID-19 Test Negative (Negative); IDNOW Serial# 16C4AD1C
--- NOTE | 2022-03-14 10:58 | PC.NURSE ---
patient a/ox4 . beto . heart rate regular at 60 beats per minute . skin pink warm and dry . abdomen soft not tender . patient does not report an rebound tenderness when palpated but reports his lower abdomen aching internally for the last two years .positive bowel sounds in all quadrants. Labs have been drawn and sent . IV placed for left AC for CT . Urine obtained and sent . patient aware of plan of care .
[2022-03-14 11:20] LABS: Appearance Urine Clear; Color Urine Yellow; Glucose Urine UA Negative (Negative); Leukocyte Esterase Urine Negative (Negative); Nitrite Urine Negative (Negative); PH 7.5 (5.0-9.0); Urine Blood Negative (Negative); Urine Ketones Negative (Negative); Urine Protein Negative (Neg-Trace)
[2022-03-14] MEDS: iohexoL 350 MG/ML 100 ML INFUS..BTL IV (11:28)
[2022-03-14 11:34] LABS: Amphetamine Screen Urine Not Detected (Not Detect); Barbiturates, Urine POSITIVE (Not Detect); Benzodiazepines Screen Urine Not Detected (Not Detect); Cannabinoid Screen Urine Not Detected (Not Detect); Cocaine Screen Urine Not Detected (Not Detect); Fentanyl, urine Not Detected (Not Detect); Opiate Screen Urine Not Detected (Not Detect); Phencyclidine Screen Urine Not Detected (Not Detect)
[2022-03-14 12:23] VITALS: BP 119/75; PULSE 53; RESP 14; TEMP 36.8; O2SAT 100
[2022-03-14 14:27] VITALS: BP 120/78; PULSE 53; RESP 14; TEMP 36.6; O2SAT 100
--- NOTE | 2022-03-14 14:45 | PC.NURSE ---
patient a/ox4 . Vera Horan at bedside to go over discharge instructions further with patient . Patient had questions regarding results . Patient to follow up with GI for outpatient MRI . patient has no questions at this time .
== END 2022-03-14 14:48 | disposition home or self-care (01) ==
PROVIDERS: Physician Assistant; Emergency Provider Emergency Medicine; PCP Internal Medicine
DX: K65.4 Sclerosing mesenteritis (principal); R10.9 Unspecified abdominal pain; K76.9 Liver disease, unspecified; Z20.822 Contact with and (suspected) exposure to COVID-19; F41.1 Generalized anxiety disorder; Z79.899 Other long term (current) drug therapy
CPT/HCPCS: 74177; 80048; 80076; 80307; 81003; 82077; 83690; 83735; 85025; 87635; 99284; Q9967

== ENCOUNTER 2022-03-31 08:55 | Outpatient (REF) | payer OTHER, MEDICAID, SELFPAY ==
--- NOTE | ~2022-03-31 | MR_ITS ---
EXAMINATION: MR ABDOMEN WITHOUT AND WITH CONTRAST CLINICAL INFORMATION: Liver disease. Follow-up liver lesion seen on CT scan. COMPARISON: Previous abdominal and pelvic CT scans, most recent March 2022. TECHNIQUE: MR abdomen was performed without and with use of 8.5 mL intravenous Gadavist gadolinium contrast. Postcontrast images are performed in multiphase dynamic sequences. Imaging was performed in 3 planes. FINDINGS: LUNG BASES: The visualized lung bases are unremarkable. LIVER, GALLBLADDER, AND BILIARY TREE: The liver is normal in size, smooth in contour, and normal in signal. There is a small cyst high in the dome of the right lobe of the liver measuring 8 mm, for example image 26 post contrast. No other focal hepatic lesion or biliary ductal dilatation is present. The gallbladder is unremarkable with no evidence of gallbladder wall thickening, or obvious pericholecystic inflammatory changes. PANCREAS: Unremarkable. SPLEEN: Normal. ADRENAL GLANDS: Normal. KIDNEYS AND URETERS: The kidneys are normal in size, shape, and enhance symmetrically. No hydronephrosis. No perinephric stranding. GASTROINTESTINAL TRACT: No bowel obstruction. No ascites or fluid collection. ABDOMINAL WALL: No significant hernia is appreciated. LYMPH NODES: Small, small bowel mesentery lymph nodes and slight increased signal in the small bowel mesentery fat or gómez mesentery sign similar to previous CT scans. VASCULAR: Unremarkable. OSSEOUS STRUCTURES: Marrow signal normal. Degenerative disc disease at L5-S1. MR/MR abdomen wo/w con IMPRESSION: Small cyst high in the dome of the right lobe of the liver. No other liver lesion.
== END 2022-03-31 08:56 | disposition home or self-care (01) ==
LOC: HO.MRI 08:55
PROVIDERS: Visit Provider Internal Medicine
DX: K76.9 Liver disease, unspecified (principal)
CPT/HCPCS: 74183; A9585

== ENCOUNTER → 2022-05-21 15:04 | Outpatient (BNVA) | payer OTHER, MEDICAID, SELFPAY | PROVIDERS: PCP Internal Medicine; Visit Provider Urology | DX: N32.89 Other specified disorders of bladder (principal); R10.9 Unspecified abdominal pain | CPT/HCPCS: 51798 ==

== ENCOUNTER 2022-06-01 05:57 | Outpatient (REF) | payer OTHER, MEDICAID, SELFPAY ==
[2022-06-01 06:10] LABS: MANUAL DIFF FLAG NO
[2022-06-01 07:59] LABS: Basophils Percent Auto 0.5 % (0-2); Eosinophils Absolute Auto 0.1 X10*3/uL (0.0-0.4); Hematocrit 47.1 % (42.0-52.0); Imm Gran Abs Auto 0.03 X10*3/uL (0.00-0.03); Imm Gran Pct Auto 0.5 % (0.0-0.4); Lymphocytes Absolute Auto 2.3 X10*3/uL (1.2-4.9); Lymphocytes Percent Auto 37.4 % (20-40); Mean Corpuscular Hemoglobin 30.3 pg (27.0-33.0); Mean Corpuscular Volume 89.2 fL (80.0-98.0); Mean Platelet Volume 11.3 fL (9.4-12.4); Monocytes Absolute Auto 0.7 X10*3/uL (0.1-1.2); Monocytes Percent Auto 11.5 % (2-11); Neutrophils Percent Auto 49.1 % (45-73); Platelet Count 274 X10*3/uL (160-400); Red Blood Count 5.28 X10*6/uL (4.60-5.80); Red Cell Distribution Width 12.9 % (11.0-16.0); White Blood Count 6.2 X10*3/uL (4.8-10.8)
[2022-06-01 08:50] LABS: Erythrocyte Sedimentation Rate 2 MM/HR (0-15)
[2022-06-01 08:53] LABS: Alanine Aminotransferase 17 U/L (0-40); Albumin Level 4.1 g/dL (3.5-5.0); Alkaline Phosphatase 35 U/L (39-117); Anion Gap 12 (12-20); Aspartate Amino Transferase 14 U/L (5-37); Bilirubin Total 0.5 mg/dL (0.0-1.0); Blood Urea Nitrogen 15 mg/dL (9-16); C Reactive Protein < 0.10 mg/dL (< or = 0.50); Calcium 9.4 mg/dL (8.4-10.2); Carbon Dioxide 24 mmol/L (22-29); Chloride 107 mmol/L (96-108); Estimated Glomerular Filt Rate > 60; Glucose Random 88 mg/dL (60-115); Potassium 4.3 mmol/L (3.3-5.1); Sodium 139 mmol/L (135-145); Total Protein 6.3 g/dL (6.5-8.0)
[2022-06-01 12:04] LABS: Adenovirus F 40/41 Not Detected (Not Detect.); Astrovirus Not Detected (Not Detect.); Campylobacter Not Detected (Not Detect.); Cryptosporidium Not Detected (Not Detect.); Cyclospora cayetanensis Not Detected (Not Detect.); E. coli EAEC Not Detected (Not Detect.); E. coli EPEC Not Detected (Not Detect.); E. coli ETEC Not Detected (Not Detect.); E. coli STEC Not Detected (Not Detect.); Entamoeba histolytica Not Detected (Not Detect.); Giardia lamblia Not Detected (Not Detect.); Plesiomonas shigelloides Not Detected (Not Detect.); Salmonella Not Detected (Not Detect.); Shigella sp./EIEC Not Detected (Not Detect.); Vibrio Not Detected (Not Detect.); Vibrio Cholerae Not Detected (Not Detect.); Yersinia enterocolitica Not Detected (Not Detect.)
[2022-06-01 12:05] LABS: Norovirus GI/GII Not Detected (Not Detect.); Rotavirus A Not Detected (Not Detect.); Sapovirus Not Detected (Not Detect.)
[2022-06-06 17:27] LABS: Lactoferrin, Fecal, Quant. <6.25 mcg/mL (<7.25)
== END 2022-06-01 05:58 | disposition home or self-care (01) ==
LOC: HO.LAB 05:57
PROVIDERS: Nurse Practitioner Family; PCP Internal Medicine; Visit Provider Internal Medicine Gastroenterology
DX: K65.4 Sclerosing mesenteritis (principal); K75.81 Nonalcoholic steatohepatitis (NASH); R19.7 Diarrhea, unspecified
CPT/HCPCS: 36415; 80053; 83631; 85025; 85652; 86140; 87507

== ENCOUNTER 2022-06-02 08:56 | Day surgery (SDC) | payer OTHER, MEDICAID, SELFPAY ==
[2022-05-28 12:30] VITALS: BMI 24.7
--- NOTE | 2022-06-01 09:10 | HO.ANESPROP2 ---
Documented by User: Dorene Scruggs NP 06/01/22 09:11 HPI - Anesthesia Eval Consult details Narrative: 46yo M for Cystoscopy & Possible Bladder Biopsy PMFSH Active Problems Active Problems: All Active Problems (Updated 05/31/22 @ 09:10 by Merlin Pressley MD) Diarrhea (Acute) Abdominal pain (Acute) Abnormal CT of the abdomen (Acute) Mesenteric panniculitis (Acute) COVID-19 virus infection (Acute) Liver lesion (Acute) Bladder wall thickening (Acute) Paronychia of great toe of left foot (Acute) Generalized anxiety disorder (Acute) RUQ abdominal pain (Acute) Frequency of micturition (Acute) Annual physical exam (Acute) Sciatic nerve pain (Acute) GERD (gastroesophageal reflux disease) (Acute) Anxiety (Acute) Past Medical History Medical History (Updated 05/31/22 @ 09:10 by Merlin Pressley MD) Anxiety Chest wall pain Colon cancer screening Colonoscopy refused Fatty liver Flank pain Gallbladder polyp GERD (gastroesophageal reflux disease) Irritable bowel syndrome Panniculitis Rib fractures Vitamin D deficiency Family History Family History Father Lung cancer Parkinson disease Mother Alive and well Paternal Aunt Lung cancer Paternal Aunt Breast cancer Surgical History Surgical History (Updated 06/02/22 @ 09:18 by Melissa Mata) H/O cystoscopy History of removal of skin mole Social History Social History Housing: House Are you a primary director of home care hospice to a significant other at home: No Do you presently have visiting nurse or other home services: No Alcohol intake: current Alcohol intake frequency: a few times a week Patient Tobacco Use Status: Never used Tobacco e-Cigarette/Vaping Use: Never Used Second Hand Smoke Exposure: No Use of substances other than those prescribed or required for medical reasons: No Have you been hit, kicked, punched, or otherwise hurt by someone within the past year? If so, by whom?: No Are you DNR?: No Advance Directives: No Advance Directives Information Provided: Yes Advance Directives on File: No Recently lost weight without trying: No Eating poorly because of decreased appetite: No Nutrition Risks: No Nutritional Risk Current occupational status: employed Cognitive needs: No Hearing needs: No Vision needs: No Meds Allergies Allergy/AdvReac Type Severity Reaction Status Date / Time No Known Allergies Allergy Verified 06/02/22 09:11 [No Known Allergies*] Home Medications Medication Instructions Recorded Confirmed Last Taken Type lorazepam 1 mg tablet 1 mg PO DAILY PRN Anxiety 08/27/20 06/02/22 Unknown History mirtazapine 7.5 mg tablet 7.5 mg PO BEDTIME 07/02/21 06/02/22 Unknown History topiramate 50 mg tablet 50 mg PO DAILY 07/02/21 06/02/22 Unknown History primidone 250 mg tablet 500 mg PO BEDTIME 10/08/21 06/02/22 Unknown History buspirone 15 mg tablet 15 mg PO BID 04/07/22 06/02/22 06/02/22 06:45 History propranolol 40 mg tablet 40 mg PO BID 04/07/22 06/02/22 06/02/22 06:45 History Exam Exam Date and Time: June 01, 2022 0910 Height,Weight and Vital Signs: Height 5 ft 10 in Weight 78.018 kg Pertinent Lab Results Pertinent Lab Results: Laboratory Tests 06/01/22 06/01/22 06:08 06:08 WBC 6.2 Hgb 16.0 Hct 47.1 Plt Count 274 Sodium 139 Potassium 4.3 Chloride 107 Carbon Dioxide 24 BUN 15 Creatinine 1.14 Assessment and Plan Assessment Anesthesia Assessment: Chart Reviewed Documented by User: Momo Martinez MD 06/02/22 11:03 [facility] Past Medical History Medical History (Updated 05/31/22 @ 09:10 by Merlin Pressley MD) Anxiety Chest wall pain Colon cancer screening Colonoscopy refused Fatty liver Flank pain Gallbladder polyp GERD (gastroesophageal reflux disease) Irritable bowel syndrome Panniculitis Rib fractures Vitamin D deficiency Family History Family History Father Lung cancer Parkinson disease Mother Alive and well Paternal Aunt Lung cancer Paternal Aunt Breast cancer Family history of problems with anesthesia: No Surgical History Surgical History (Updated 06/02/22 @ 09:18 by Melissa Mata) H/O cystoscopy History of removal of skin mole History of Problems with Anesthesia: Unobtainable Social History Social History Housing: House Are you a primary director of home care hospice to a significant other at home: No Do you presently have visiting nurse or other home services: No Alcohol intake: current Alcohol intake frequency: a few times a week Patient Tobacco Use Status: Never used Tobacco e-Cigarette/Vaping Use: Never Used Second Hand Smoke Exposure: No Use of substances other than those prescribed or required for medical reasons: No Have you been hit, kicked, punched, or otherwise hurt by someone within the past year? If so, by whom?: No Are you DNR?: No Advance Directives: No Advance Directives Information Provided: Yes Advance Directives on File: No Recently lost weight without trying: No Eating poorly because of decreased appetite: No Nutrition Risks: No Nutritional Risk Current occupational status: employed Cognitive needs: No Hearing needs: No Vision needs: No Meds Allergies Allergy/AdvReac Type Severity Reaction Status Date / Time No Known Allergies Allergy Verified 06/02/22 09:11 [No Known Allergies*] Home Medications Medication Instructions Recorded Confirmed Last Taken Type lorazepam 1 mg tablet 1 mg PO DAILY PRN Anxiety 08/27/20 06/02/22 Unknown History mirtazapine 7.5 mg tablet 7.5 mg PO BEDTIME 07/02/21 06/02/22 Unknown History topiramate 50 mg tablet 50 mg PO DAILY 07/02/21 06/02/22 Unknown History primidone 250 mg tablet 500 mg PO BEDTIME 10/08/21 06/02/22 Unknown History buspirone 15 mg tablet 15 mg PO BID 04/07/22 06/02/22 06/02/22 06:45 History propranolol 40 mg tablet 40 mg PO BID 04/07/22 06/02/22 06/02/22 06:45 History Exam Airway Mallampati Class: III TM Dist: >3cm Neck ROM: Full Loose/Missing/Broken Teeth: No Heart: rrr Lungs: clear Assessment and Plan Final Anesthetic Review Family History of Problems with Anesthesia: No History of Problems with Anesthesia: Unobtainable NPO: Yes ASA Class: II Final Preanesthetic Review: No Changes in Pt Med Stat, Meds/Allgs Chart Reviewed, Consent Obtained/Reviewed and Anes Risks/Benef Reviewed Anesthetic Plan Anesthetic Plan: GA Disposition: Standard PACU
[2022-06-02 09:11] VITALS: BP 119/89; PULSE 54; RESP 16; TEMP 36.5; O2SAT 100
[2022-06-02] MEDS: Lactated Ringers 1,000 ML 100 ML IVCONT (09:46)
--- NOTE | 2022-06-02 10:44 | MHC.SHP ---
Pre-Procedural Eval Section A Date of Service: 06/02/22 The patient is an INPATIENT: No The History & Physical has been completed within 30 days and I have reviewed it.: Yes Section B Chief Complaint: Other specified disorders of bladder Allergies: Allergies Allergy/AdvReac Type Severity Reaction Status Date / Time No Known Allergies Allergy Verified 06/02/22 09:11 [No Known Allergies*] Plan Diagnosis/Plan: Unchanged I have reviewed the history and physical and performed a pertinent physical examination on my patient. No changes have occurred unless specified. Bladder wall thickening. Cystoscopy possible bladder biopsy.Discussed risks to include but not limited to, blood in the urine, burning with urination, urgency. Time Spent With Patient Time: Total time managing care of this patient today ____ minutes.
--- NOTE | 2022-06-02 11:49 | P.OP_ITS ---
Operative Note Operative Note Date of Service: 06/02/22 Narrative: PREOP DIAGNOSIS: Bladder wall thickening POSTOP DIAGNOSIS: Bladder wall thickening PROCEDURE: CYSTOSCOPY Surgeon: Arturo Gonzalez MD Anesthesia: General Indications: Mario is a 46 year old male who has LUTS of intermittent urgency. He had CT scan imaging for an unrelated symptom and findings include assymetric bladder wall thickening, he is here for further evaluation. Details of procedure: The patient was brought into the operating room placed on the OR table in supine position. 1 g of Ancef IV. General anesthesia was administered. The patient was repositioned into lithotomy position, prepped and draped in the usual sterile fashion. Time-out was done per protocol. The 22 [place] resectoscope was passed transurethrally into the bladder. The bulbous urethra was within normal limits. The prostatic urethral was not significantly enlarged although the median lobe was slightly prominent. Visualization of the bladder. The trigone was within normal limits, there was mild trabeculation noted, no diverticuli, no suspicious lesions. The cystoscope was removed. Complications: None Drains: None
[2022-06-02 11:53] VITALS: BP 104/64; PULSE 58; RESP 16; TEMP 36.6; O2SAT 100
[2022-06-02 11:58] VITALS: BP 92/64; PULSE 72; RESP 16; O2SAT 96
[2022-06-02 12:03] VITALS: BP 110/77; PULSE 56; RESP 18; O2SAT 100
[2022-06-02 12:08] VITALS: BP 109/75; PULSE 55; RESP 18; O2SAT 100
[2022-06-02 12:23] VITALS: BP 110/73; PULSE 50; RESP 15; TEMP 36.6; O2SAT 100
== END 2022-06-02 13:17 | disposition home or self-care (01) ==
PROVIDERS: PCP Internal Medicine; Visit Provider Urology
PROC: (CPT 52000; principal; 2022-06-02 10:40)
DX: N32.89 Other specified disorders of bladder (principal); R10.9 Unspecified abdominal pain; R39.15 Urgency of urination; R35.0 Frequency of micturition; E55.9 Vitamin D deficiency, unspecified; K58.9 Irritable bowel syndrome, unspecified; F41.1 Generalized anxiety disorder; Z79.899 Other long term (current) drug therapy
CPT/HCPCS: 52000; J0690; J1100; J2250; J2405; J3010

== ENCOUNTER 2022-06-10 15:41 | Outpatient (REF) | payer OTHER, MEDICAID, SELFPAY ==
--- NOTE | ~2022-06-10 | CT_ITS ---
EXAMINATION: CT ABDOMEN AND PELVIS WITH CONTRAST CLINICAL INFORMATION: Right upper quadrant pain. COMPARISON: None. TECHNIQUE: Multidetector volumetric images were obtained from the superior aspect of the liver through the pubic symphysis following administration 85 mL of Omnipaque 350 intravenous contrast. Sagittal and coronal reformatted images were obtained on the technologist's workstation. Oral contrast: No This CT examination was performed using dose optimization techniques as appropriate, variously including the following: *Automated exposure control *Adjustment of mA and/or kV according to patient size (this includes techniques or standardized protocols for targeted exams where dose is matched to indication/reason for exam; i.e. extremities or head) *Use of iterative reconstruction technique DLP: 318 mGy-cm FINDINGS: LUNG BASES: There is dependent bibasilar minimal atelectatic changes. The heart size is normal. LIVER, GALLBLADDER, AND BILIARY TREE: The liver is normal in size, shape, and attenuation. No focal hepatic lesion or biliary ductal dilatation is present. The gallbladder is unremarkable with no evidence of radiopaque gallstones, gallbladder wall thickening, or obvious pericholecystic inflammatory changes. PANCREAS: Unremarkable. SPLEEN: Unremarkable. ADRENAL GLANDS: Unremarkable. KIDNEYS AND URETERS: The kidneys are normal in size, shape, and attenuation. No hydronephrosis, hydroureter, or calculi seen. No perinephric stranding. BLADDER: Unremarkable. GASTROINTESTINAL TRACT: There is scattered stool, diverticuli and gas seen throughout the colon without distention. The small bowel loops are normal caliber. The appendix is normal caliber. No inflammatory process, free air or free fluid seen. Very mild gómez appearance of the mesentery in mid and left abdomen, similar to previous study. ABDOMINAL WALL: No significant hernia is appreciated. LYMPH NODES: Normal. VASCULAR: Unremarkable. PELVIC VISCERA: The prostate gland is enlarged with central gland hyperdensity. No free fluid seen. No abnormal pelvic lymphadenopathy. OSSEOUS STRUCTURES: There is no lytic or sclerotic process seen. CT/CT abdomen pelvis w IV con IMPRESSION: 1. No acute intra-abdominal process seen. 2. Scattered colonic diverticulosis without diverticulitis. Moderate constipation most localized stool in the right abdomen.. 3. Mild gómez appearance of mesentery, stable. It is nonspecific. 4. The prostate gland is enlarged with central gland hyperdensity. Fleischner guidelines were followed.
[2022-06-10] MEDS: iohexoL 350 MG/ML 100 ML INFUS..BTL IV (16:43)
== END 2022-06-10 15:42 | disposition home or self-care (01) ==
LOC: HO.CT 15:41
PROVIDERS: Visit Provider Nurse Practitioner
DX: R10.11 Right upper quadrant pain (principal); K65.4 Sclerosing mesenteritis
CPT/HCPCS: 74177; Q9967

== ENCOUNTER 2022-06-12 07:58 | Day surgery (SDC) | payer OTHER, MEDICAID, SELFPAY ==
[2022-06-05 09:44] VITALS: BMI 25.0
--- NOTE | 2022-06-11 09:43 | P.CONAN_ITS ---
HPI - Anesthesia Eval Consult details Narrative: 46yo M for Upper Endoscopy and Colonoscopy s/p cysto, bladder bx 06/02/2022 with GA-LMA 4 PMFSH Active Problems Active Problems: All Active Problems (Updated 05/31/22 @ 09:10 by Merlin Pressley MD) Sciatic nerve pain (Acute) Annual physical exam (Acute) Frequency of micturition (Acute) RUQ abdominal pain (Acute) Generalized anxiety disorder (Acute) Paronychia of great toe of left foot (Acute) Bladder wall thickening (Acute) Liver lesion (Acute) COVID-19 virus infection (Acute) Mesenteric panniculitis (Acute) Abnormal CT of the abdomen (Acute) Abdominal pain (Acute) Diarrhea (Acute) GERD (gastroesophageal reflux disease) (Acute) Anxiety (Acute) Past Medical History Medical History (Updated 06/12/22 @ 08:14 by Michelle Linder, RN) Anxiety Chest wall pain Colon cancer screening Fatty liver Flank pain Gallbladder polyp GERD (gastroesophageal reflux disease) Irritable bowel syndrome Panniculitis Rib fractures Vitamin D deficiency Family History Family History Father Lung cancer Parkinson disease Mother Alive and well Paternal Aunt Lung cancer Paternal Aunt Breast cancer Family history of problems with anesthesia: No Surgical History Surgical History H/O cystoscopy History of removal of skin mole History of Problems with Anesthesia: Unobtainable Social History Social History Housing: House Are you a primary healthcare economics consultant to a significant other at home: No Do you presently have visiting nurse or other home services: No Alcohol intake: current Alcohol intake frequency: a few times a week Patient Tobacco Use Status: Never used Tobacco e-Cigarette/Vaping Use: Never Used Second Hand Smoke Exposure: No Current occupational status: employed Cognitive needs: No Hearing needs: No Vision needs: No Meds Allergies Allergy/AdvReac Type Severity Reaction Status Date / Time No Known Allergies Allergy Verified 06/12/22 08:15 [No Known Allergies*] Home Medications Medication Instructions Recorded Confirmed Last Taken Type lorazepam 1 mg tablet 1 mg PO DAILY PRN Anxiety 08/27/20 06/05/22 Unknown History mirtazapine 7.5 mg tablet 7.5 mg PO BEDTIME 07/02/21 06/05/22 Unknown History topiramate 50 mg tablet 50 mg PO BEDTIME 07/02/21 06/05/22 Unknown History primidone 250 mg tablet 500 mg PO BEDTIME 10/08/21 06/05/22 Unknown History buspirone 15 mg tablet 15 mg PO BID 04/07/22 06/05/22 06/02/22 06:45 History propranolol 40 mg tablet 40 mg PO BID 04/07/22 06/05/22 06/02/22 06:45 History Exam Exam Date and Time: June 11, 2022 0943 Height,Weight and Vital Signs: Height 5 ft 10 in Weight 78.925 kg Pertinent Lab Results Pertinent Lab Results: Laboratory Tests 06/01/22 06/01/22 06:08 06:08 WBC 6.2 Hgb 16.0 Hct 47.1 Plt Count 274 Sodium 139 Potassium 4.3 Chloride 107 Carbon Dioxide 24 BUN 15 Creatinine 1.14 Assessment and Plan Assessment Anesthesia Assessment: Chart Reviewed Final Anesthetic Review Family History of Problems with Anesthesia: No History of Problems with Anesthesia: Unobtainable
[2022-06-12 08:27] VITALS: BP 109/76; PULSE 78; RESP 15; TEMP 37.2; O2SAT 100
[2022-06-12] MEDS: Lactated Ringers 1,000 ML 100 ML IVCONT (08:36)
--- NOTE | 2022-06-12 08:57 | MHC.SHP ---
Pre-Procedural Eval Section A Date of Service: 06/12/22 The History & Physical has been completed within 30 days and I have reviewed it.: Yes Section B Chief Complaint: Right upper quadrant pain Allergies: Allergies Allergy/AdvReac Type Severity Reaction Status Date / Time No Known Allergies Allergy Verified 06/12/22 08:15 [No Known Allergies*] Plan Diagnosis/Plan: Unchanged I have reviewed the history and physical and performed a pertinent physical examination on my patient. No changes have occurred unless specified. Time Spent With Patient Time: Total time managing care of this patient today ____ minutes.
[2022-06-12 10:43] VITALS: BP 95/64; PULSE 77; RESP 16; TEMP 36.3; O2SAT 100
--- NOTE | 2022-06-12 10:54 | P.OP_ITS ---
Operative Note Operative Note Date of Service: 06/12/22 Narrative: Procedure:?Esophagogastroduodenoscopy and Colonoscopy Indication:?Abd pain, screening Endoscopist:?Tessy Dozier MD Anesthesia Provider:?Dr Desiree Concepcion Anesthesia type:?MAC Instrument:?Olympus GIF-H190 and PCF-H190L ?? EGD Procedure:?? The procedure, indications, preparation and potential complications were reviewed with the patient, who indicated understanding and gave written informed consent to proceed. A physical exam was performed. The endoscope was introduced through the mouth, and advanced to the third part of duodenum. The mucosa was carefully examined on slow withdrawal of the endoscope. The patient tolerated the procedure well. There were no immediate complications.? ? EGD Findings:? * Esophagus:? Normal mucosa. The Z line was noted at 42 cm and was irregular < 1 cm. Cold forceps biopsies were taken.? * Stomach:?Normal stomach mucosa. Random cold forceps gastric biopsies were taken to rule out H Pylori infection.? * Duodenum:? Normal duodenal mucosa was noted. Cold forceps biopsies were taken from duodenal bulb and second portion of the duodenum to rule out celiac sprue. Colonoscopy Procedure:? The patient was then turned for the colonoscopy. A digital rectal exam was performed which was normal. The colonoscope was then inserted through the anus and advanced through the colon to the cecum at 80 cm. The appendiceal orifice and ileocecal valve was identified.? Mucosa was carefully examined under high definition white light as the instrument was slowly withdrawn in a retrograde panoramic fashion. Retroflexion was performed in rectum. The procedure was not difficult. There were no immediate obvious complications. The quality of the prep was BBPS: 2+3+3 = adequate Withdrawal time 12 minutes. Limitations: No limitations Colonoscopy findings: Mucosa: Normal to cecum. Protruding lesions: * 1 semi-pedunculated polyp of size 6 mm was seen in descending colon. Hot snare was utilised but a cold polypectomy was performed. The tip of the snare was used to apply soft coagulation for hemostasis at the base of polypectomy site. * Small internal hemorrhoids with stigmata of recent bleeding.? Impression:? * Irregular Z line (biopsy) * Normal stomach (biopsy) * Normal duodenum (biopsy) * Normal colon to cecum. * Desending colon polyp (polypectomy) * Internal hemorrhoids Recommendations:?? * Follow biopsy results. Our office will call or send a letter with results within 7-10 days.? * If H pylori +, patient will be prescribed eradication therapy followed by test of cure. * If BE +, timing of next EGD will be contingent on whether dysplasia present or not. * Avoid NSAIDs. * Next colonoscopy in 5-7 years depending on path Above has been reviewed with the patient. Relevant educational hand outs were provided at discharge.?
[2022-06-12 10:58] VITALS: BP 116/74; PULSE 67; RESP 16; TEMP 36.4; O2SAT 100
--- NOTE | 2022-06-12 11:28 | PC.NURSE ---
during discharge patient asked, did i bite my lip while i was sleeping? Author assessed lip in question. No visible inflammation or bite stanley or redness was noticeable. Patient stated, you know when you bite your lip that feeling. Patient educated to use ice if needed and assess for swelling/redness and contact doctor with any questions/concerns. Patient drinking fluid well in discharge area.
== END 2022-06-12 11:30 | disposition home or self-care (01) ==
PROVIDERS: PCP Internal Medicine; Visit Provider Internal Medicine
PROC: (CPT 45385; principal; 2022-06-12 09:20)
DX: Z12.11 Encounter for screening for malignant neoplasm of colon (principal); D12.4 Benign neoplasm of descending colon; K64.8 Other hemorrhoids; R10.11 Right upper quadrant pain; K76.0 Fatty (change of) liver, not elsewhere classified; K65.4 Sclerosing mesenteritis; K21.9 Gastro-esophageal reflux disease without esophagitis; K82.4 Cholesterolosis of gallbladder; Q39.8 Other congenital malformations of esophagus; F41.1 Generalized anxiety disorder; Z79.899 Other long term (current) drug therapy
CPT/HCPCS: 45385; 43239; 88305; 88342; J2250

== ENCOUNTER → 2022-06-26 16:23 | Outpatient (BNVA) | payer OTHER, MEDICAID, SELFPAY | PROVIDERS: PCP Internal Medicine; Visit Provider Nurse Practitioner | DX: Z13.89 Encounter for screening for other disorder (principal) ==

== ENCOUNTER → 2022-07-21 13:50 | Outpatient (BNVA) | payer OTHER, MEDICAID, SELFPAY | PROVIDERS: PCP Internal Medicine; Visit Provider Nurse Practitioner Family | DX: Z13.89 Encounter for screening for other disorder (principal) ==

== ENCOUNTER 2022-07-23 06:04 | Outpatient (REF) | payer OTHER, SELFPAY ==
[2022-07-23 08:36] LABS: Prostate Specific Antigen 0.51 ng/mL (<0.05-4.0)
== END 2022-07-23 06:05 | disposition home or self-care (01) ==
LOC: HO.LAB 06:04
PROVIDERS: PCP Internal Medicine; Visit Provider Nurse Practitioner Family
DX: Z12.5 Encounter for screening for malignant neoplasm of prostate (principal); N40.0 Benign prostatic hyperplasia without lower urinary tract symptoms
CPT/HCPCS: 36415; 84153

== ENCOUNTER → 2022-07-28 15:51 | Outpatient (BNVA) | payer OTHER, SELFPAY | PROVIDERS: PCP Internal Medicine; Visit Provider Internal Medicine | DX: Z13.89 Encounter for screening for other disorder (principal) ==

== ENCOUNTER → 2022-07-30 13:00 | Outpatient (BNVA) | payer OTHER, SELFPAY | PROVIDERS: PCP Internal Medicine; Visit Provider Urology | DX: Z13.89 Encounter for screening for other disorder (principal) ==

== ENCOUNTER 2022-09-18 15:43 | Outpatient (REF) | payer OTHER, SELFPAY ==
[2022-09-18 18:09] LABS: Phosphorus 2.9 mg/dL (2.7-4.5)
[2022-09-18 18:29] LABS: Erythrocyte Sedimentation Rate 1 MM/HR (0-15)
[2022-09-18 18:41] LABS: Folate 4.6 ng/mL (> or = 4.0); Vitamin B12 294 pg/mL (200-900)
[2022-09-22 15:28] LABS: Zinc 52 mcg/dL (60-130)
[2022-09-22 22:24] LABS: C1 Esterase Inhibitor 93 % (>=68)
== END 2022-09-18 15:44 | disposition home or self-care (01) ==
LOC: HO.LAB 15:43
PROVIDERS: PCP Internal Medicine; Visit Provider Internal Medicine
DX: R10.9 Unspecified abdominal pain (principal); R74.8 Abnormal levels of other serum enzymes
CPT/HCPCS: 36415; 82607; 82746; 83520; 84100; 84630; 85652; 86160; 86161

== ENCOUNTER → 2022-09-23 13:12 | Outpatient (BNVA) | payer OTHER, SELFPAY | PROVIDERS: PCP Internal Medicine; Visit Provider Internal Medicine | DX: Z13.89 Encounter for screening for other disorder (principal) ==

== ENCOUNTER 2023-01-25 12:17 | Outpatient (REF) | payer BC, SELFPAY ==
--- NOTE | ~2023-01-25 | XR_ITS ---
EXAMINATION: XR CHEST CLINICAL INFORMATION: Chest pain, unspecified COMPARISON: Chest 10/17/2020 TECHNIQUE: 2 views of the chest were obtained. FINDINGS: No significant abnormality is noted involving the heart, lungs, mediastinum, bony thorax or soft tissues. XR/XR chest 2V IMPRESSION: No acute cardiopulmonary disease.
--- NOTE | 2023-01-25 12:22 | ECG_ITS ---
Test Reason : CP Blood Pressure : / mmHG Vent. Rate : 059 BPM Atrial Rate : 059 BPM P-R Int : 138 ms QRS Dur : 102 ms QT Int : 412 ms P-R-T Axes : 067 090 051 degrees QTc Int : 407 ms Sinus bradycardia Rightward axis Borderline ECG When compared with ECG of 04-JUL-2017 13:27, No significant change was found Referred By: Brady Krishna Electronically Signed By:LIZZIE IQBAL MD
[2023-01-25 12:41] LABS: MANUAL DIFF FLAG NO
[2023-01-25 13:52] LABS: Basophils Percent Auto 0.7 % (0-2); Eosinophils Absolute Auto 0.1 X10*3/uL (0.0-0.4); Eosinophils Percent Auto 1.3 % (0-4); Hematocrit 47.3 % (42.0-52.0); Imm Gran Abs Auto 0.01 X10*3/uL (0.00-0.03); Imm Gran Pct Auto 0.2 % (0.0-0.4); Lymphocytes Absolute Auto 1.7 X10*3/uL (1.2-4.9); Lymphocytes Percent Auto 31.2 % (20-40); Mean Corpuscular HGB Conc 33.8 g/dl (31.0-36.0); Mean Corpuscular Hemoglobin 30.6 pg (27.0-33.0); Mean Corpuscular Volume 90.4 fL (80.0-98.0); Monocytes Absolute Auto 0.4 X10*3/uL (0.1-1.2); Monocytes Percent Auto 7.5 % (2-11); Neutrophils Absolute Auto 3.3 x10*3/uL (2.0-8.3); Neutrophils Percent Auto 59.1 % (45-73); Platelet Count 302 X10*3/uL (160-400); Red Blood Count 5.23 X10*6/uL (4.60-5.80); Red Cell Distribution Width 12.1 % (11.0-16.0); White Blood Count 5.6 X10*3/uL (4.8-10.8)
[2023-01-25 16:41] LABS: Alanine Aminotransferase 20 U/L (0-40); Albumin Level 4.3 g/dL (3.5-5.0); Alkaline Phosphatase 35 U/L (39-117); Anion Gap 12 (12-20); Aspartate Amino Transferase 19 U/L (5-37); Bilirubin Total 0.5 mg/dL (0.0-1.0); Blood Urea Nitrogen 16 mg/dL (9-16); Calcium 9.6 mg/dL (8.4-10.2); Carbon Dioxide 27 mmol/L (22-29); Chloride 106 mmol/L (96-108); Cholesterol 182 mg/dL; Estimated Glomerular Filt Rate > 60; Glucose Random 106 mg/dL (60-115); HDL Cholesterol 58 mg/dL; LDL Cholesterol Calculated 108 mg/dl; Potassium 4.1 mmol/L (3.3-5.1); Sodium 141 mmol/L (135-145); Triglycerides 83 mg/dL
[2023-01-25 16:56] LABS: Free T4 (Free Thyroxine) 0.99 ng/dL (0.71-1.85); Thyroid Stimulating Hormone 1.08 uIU/mL (0.32-4.0)
[2023-01-26 02:36] LABS: Folate 9.4 ng/mL (> or = 4.0); Vitamin B12 421 pg/mL (200-900)
== END 2023-01-25 12:18 | disposition home or self-care (01) ==
LOC: HO.LAB 12:17
PROVIDERS: PCP Internal Medicine; Visit Provider Internal Medicine
DX: R07.9 Chest pain, unspecified (principal); E78.00 Pure hypercholesterolemia, unspecified
CPT/HCPCS: 36415; 71046; 80053; 80061; 82607; 82746; 84439; 84443; 85025; 93005

== ENCOUNTER → 2023-01-25 12:22 | Outpatient (BNV) | payer BC, SELFPAY | PROVIDERS: PCP Internal Medicine; Visit Provider Internal Medicine Cardiovascular Disease | DX: R00.1 Bradycardia, unspecified (principal) | CPT/HCPCS: 93010 ==

== ENCOUNTER → 2023-01-29 07:49 | Outpatient (REF) | payer BC, SELFPAY ==
--- NOTE | 2023-01-29 07:51 | CA_ITS ---
Acquisition Time: 2023-01-29 08:02:33 Total Exercise Time: 00:15:16 Test Indications: CP Medications: BUSPIRONE LORAZAPAM MORTAZAPINE PRIMIDOPNE PROPRANOLOL Protocol: TIM Max HR: 150 BPM 87% of Pred: 172 BPM Max BP: 138/078 mmHG Max Work Load: 17.5 METS Exercise stress test exercise 15 min 16 sec of Tim protocol achieving 87% MPHR, without anginal symptoms, with blunted BP 110 - 112 systolic through exercise and 138 systolic post exercise, without arrhythmias, without EKG changes. Test reviewed with Dr. Hermosillo. Referred By: Brady Krishna Overread By: LIZZIE HERMOSILLO MD
== END ==
LOC: HO.CARD 07:49
PROVIDERS: PCP Internal Medicine; Visit Provider Internal Medicine
DX: R07.9 Chest pain, unspecified (principal)
CPT/HCPCS: 93017

== ENCOUNTER → 2023-01-29 07:51 | Outpatient (BNV) | payer BC, SELFPAY | PROVIDERS: PCP Internal Medicine; Visit Provider Internal Medicine Cardiovascular Disease | DX: R07.9 Chest pain, unspecified (principal) | CPT/HCPCS: 93016; 93018 ==

== ENCOUNTER 2023-03-17 05:57 | Outpatient (REF) | payer BC, SELFPAY ==
[2023-03-17 08:30] LABS: Appearance Urine Clear; Color Urine Yellow; Glucose Urine UA Negative (Negative); Leukocyte Esterase Urine Negative (Negative); Nitrite Urine Negative (Negative); PH 6.5 (5.0-9.0); Urine Blood Negative (Negative); Urine Ketones Negative (Negative); Urine Protein Negative (Neg-Trace)
[2023-03-17 08:33] LABS: Bacteria Urine None Seen (None Seen); Hyaline Casts Urine 0-2 /LPF (0-2); RBC Urine 0-2 /HPF (0-2); Squamous Epithelial Cell Urine 0-2 /HPF (0-2); WBC Urine 0-5 /HPF (0-5)
== END 2023-03-17 05:58 | disposition home or self-care (01) ==
LOC: HO.LAB 05:57
PROVIDERS: PCP Internal Medicine; Visit Provider Urology
DX: N40.0 Benign prostatic hyperplasia without lower urinary tract symptoms (principal)
CPT/HCPCS: 81001; 87086

== ENCOUNTER 2023-03-26 12:34 | Outpatient (AMB) | payer BC, SELFPAY ==
[2023-03-26 12:38] VITALS: BP 132/75; PULSE 60; BMI 22.5
--- NOTE | 2023-03-26 12:38 | A.OFFVIS_ITS ---
Intake Vital Signs 03/26/23 12:38 Height 5 ft 10 in Weight 156 lb 8.451 oz BMI 22.5 BP 132/75 Blood Pressure Location Lt brachial Position Sitting Pulse 60 Intake Visit Reasons: 6 Month FU Abdominal Pain Intake Note: Mario presents in the office as a 6 month follow up. CC: He states that he for the most part feels better than he did when he started coming. Allergies No Known Allergies [No Known Allergies*] Allergy (Verified 03/26/23 12:40) HPI HPI Comments History of Present Illness Details 47y.o M with PMH of FLOR, BPH, IBS-D who is here for follow up of abd pain. 07/28/22: Pt reports he has been having generalised abd pain and discomfort since Mar 2022. Was also seen in ER for this and had a CT abd/pelvis which showed gómez mesentery . Describes as vague pain which feels different than a routine stomachache or cramping. Waxes and wanes but regular and present most days of the week. Did not change with eating or passing BMs. BMs continue to fluctuated between constipation and diarrhea. Recently has had some improvement in his sx with celebrex, however at the same time, has also been eliminating gluten from his diet unsure which helped more. No new rash, vision changes, joint pains with this pain. Prior to this does have a background of IBS with diarrhea predominance for almost 25 years now. Thinks may be even back in high school. With IBS his symptoms were more of abd cramping with urgency to defecate and that would improve the cramping. Each episode would last 2-3 days. No fam hx of colon cancer or IBD. Workup: Normal white count, H&H in platelets. Normal renal function. Had low alkaline phosphatase x2. Imaging as noted previously. EGD/colonoscopy 06/12/2022: Semi pedunculated polyp 6 mm and descending colon. Internal hemorrhoids. Irregular Z-line. Normal stomach and duodenum. Path: Congested duodenal mucosa with preserved midline. Mild chronic inactive inflammation in stomach. Mild inflammation and GE junction. Tubular adenoma. 09/23/22: Discontinued celebrex on a daily basis. Now takes it PRN. Did not notice any worsening in abd discomfort on decreasing the celebrex. Labs reviewed with the pt which are all normal except Zinc which also explains the low ALP. Pt does bring up weight loss of almost 10lbs in the last couple of months. However this is the context of diet changes with elimination of gluten and dairy. 03/26/23: Coming in today for 6 monthly follow up. In the interim was seen by his PCP for atypical chest pain and underwork up which was all normal including stress test. Currently no new GI complaints. Has been doing well with dairy and gluten avoidance. Off celebrex completely and does not notice any return of sx. [facility] Medical History Colon cancer screening Gallbladder polyp Flank pain Chest wall pain Panniculitis Rib fractures Fatty liver Irritable bowel syndrome GERD (gastroesophageal reflux disease) Vitamin D deficiency Anxiety Surgical History Hx of colonoscopy History of esophagogastroduodenoscopy (EGD) H/O cystoscopy History of removal of skin mole Family History Father Lung cancer Parkinson disease Mother Alive and well Paternal Aunt Lung cancer Paternal Aunt No problems noted. Social History Housing: House Are you a primary career development coordinator/teacher to a significant other at home: No Do you presently have visiting nurse or other home services: No Alcohol intake: current Alcohol intake frequency: a few times a week Patient Tobacco Use Status: Never used Tobacco e-Cigarette/Vaping Use: Never Used Second Hand Smoke Exposure: No Current occupational status: employed Cognitive needs: No Hearing needs: No Vision needs: No Review of Systems Const All systems reviewed & are unremarkable except as noted in HPI and below Physical Exam Vital Signs: Last Vital Signs Pulse 60 03/26/23 12:38 BP 132/75 03/26/23 12:38 BMI result Body Mass Index 22.5 Gen appear: NAD HEENT: nonicteric, no cervical lymphadenopathy Chest: CTA CVS: Regular S1/S2 Abd: soft, nontender, nondistended, bowel sounds + Ext: no peripheral edema Neuro: A/Ox3, noted to move all extremities spontaneously Psych: interacting appropriately Assessment & Plan Assessment & Plan (1) Abdominal pain: Code(s): R10.9 - Unspecified abdominal pain (2) 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 Abdominal pain, diarrhea: Most consistent with IBS-D with mesenteric panniculutis appearing to be a red [place] sena in the absence of any other s/sx to suggest inflammatory process. 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 Avoiding dairy and gluten for FODMAP groups. Plan: -Cont gluten and dairy restriction -Can consider further IBS based therapy if sx progress in future. 2. Weight loss -resolved: Brought this up during previous visit but at that time had also significantly changed his diet and intake as well. Now weight stable around 155lbs over the last 5 months. 3. Hx of polyp: Pedunculated 6mm tubular adenoma on colo 2021. Recommend repeat in 5-7 years. Follow up in 1 year, sooner PRN. Coding Level of Care Code Est Pt Level 4 (36828) Diagnoses Abdominal pain R10.9 Mesenteric panniculitis K65.4 Personal history of colonic polyps Z86.010
== END 2023-03-26 13:20 | disposition home or self-care (01) ==
PROVIDERS: PCP Internal Medicine; Visit Provider Internal Medicine
DX: R10.9 Unspecified abdominal pain (principal); K65.4 Sclerosing mesenteritis; Z86.010 Personal history of colon polyps
CPT/HCPCS: 99214

== ENCOUNTER → 2023-03-26 12:34 | Outpatient (BNVA) | payer BC, SELFPAY | PROVIDERS: PCP Internal Medicine; Visit Provider Internal Medicine ==

== ENCOUNTER 2023-04-01 10:35 | Outpatient (AMB) | payer BC, SELFPAY ==
--- NOTE | 2023-04-01 10:25 | A.OFFVIS_ITS ---
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 04/01/23? He is followed today for recurrent epididymitis. He was last seen by me on 07/30/22. He was being evaluated for pelvic floor spasms, chronic epididymitis, and lower urinary tract symptoms of urgency. He states that about 2 weeks ago he had recurrent pain in the testicle area and he thought that he had recurrent epididymitis. He states that he called for an appointment; however, his symptoms have resolved. I have re-educated on behavioural modifications to include avoiding dietary bladder irritants, cutting back on caffeine, avoiding spicy foods and adequate hydration and pelvic floor relaxation. He states that he has not been able to follow through pelvic floor therapy due to his work schedule. I reviewed the urine c/s results from 03/2023 which came back negative for bacterial growth. Review of charts: Comorbidity irritable bowel syndrome status post cystoscopy in operating room? 06/02/22.??- prostatic urethra was not significantly obstructive although the median lobe was slightly prominent.? Visualization of the bladder.? mild trabeculation noted, no diverticuli, and no suspicious lesions.?? PSA results 07/23/2022--0.[address] results--06/10/22 04/01/23: Plan: Behaviorial modification , Follow-up PRN. [facility] Medical History Colon cancer screening Gallbladder polyp Flank pain Chest wall pain Panniculitis Rib fractures Fatty liver Irritable bowel syndrome GERD (gastroesophageal reflux disease) Vitamin D deficiency Anxiety Surgical History Hx of colonoscopy History of esophagogastroduodenoscopy (EGD) H/O cystoscopy History of removal of skin mole Family History Father Lung cancer Parkinson disease Mother Alive and well Paternal Aunt Lung cancer Paternal Aunt No problems noted. Social History Housing: House Are you a primary clinical manager home care to a significant other at home: No Do you presently have visiting nurse or other home services: No Alcohol intake: current Alcohol intake frequency: a few times a week Patient Tobacco Use Status: Never used Tobacco e-Cigarette/Vaping Use: Never Used Second Hand Smoke Exposure: No Current occupational status: employed Cognitive needs: No Hearing needs: No Vision needs: No Review of Systems Const All systems reviewed & are unremarkable except as noted in HPI and below Reports no additional complaints Eyes Reports no additional complaints ENT Reports no additional complaints Card Reports no additional complaints Resp Reports no additional complaints GI Details: constipation, diarrhea, GERD, and abdominal pain Reports as per HPI Reports as per HPI Musc Reports no additional complaints Neuro Reports no additional complaints Psych Reports no additional complaints Endo Reports no additional complaints Rajan/Lymph Reports no additional complaints Aller/Immun Reports no additional complaints Results Reviewed Results Reviewed: Ordered: Urine Culture Procedure Result Verified Site Urine Culture Final 03/18/23-1350 No growth. 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 Patient Instructions: The patient had an opportunity to ask questions regarding treatment plan. All questions were answered. Imaging, Laboratory studies and physical exam results were discussed and reviewed in detail. No major barriers to understanding were identified. The patient expressed understanding and agreement with the above treatment plan.? ? ? The patient is aware they should contact our office by phone for worsening of their current condition or the appearance of new symptoms. Compliance is encouraged with any medications and followup testing that is ordered.? ? ? It is a privilege to be allowed the opportunity to participate in the urologic care of your patient. If you have any questions or concerns regarding treatment for the above conditions please do not hesitate to contact me. The office telephone contact is [phone].? ? ? This note is constructed in part using voice recognition software. While every effort has been made to ensure accuracy manager etl errors may have been included.? ? ? Yours sincerely,? ? ? Arturo Gonzalez MD? ? Coding Level of Care Code Est Pt Level 3 (85708) Diagnoses Spastic pelvic floor syndrome R19.8 Chronic epididymitis N45.1
== END 2023-04-01 12:00 | disposition home or self-care (01) ==
LOC: HO.HUSH 10:35
PROVIDERS: PCP Internal Medicine; Visit Provider Urology
DX: R19.8 Other specified symptoms and signs involving the digestive system and abdomen (principal); N45.1 Epididymitis
CPT/HCPCS: 99213

== ENCOUNTER → 2023-04-01 10:35 | Outpatient (BNVA) | payer BC, SELFPAY | PROVIDERS: PCP Internal Medicine; Visit Provider Urology ==

== ENCOUNTER 2023-04-09 10:35 | Outpatient (AMB) | payer BC, SELFPAY ==
[2023-04-09 10:39] VITALS: BP 118/70; PULSE 54; O2SAT 98; BMI 22.2
--- NOTE | 2023-04-09 10:39 | MHC.PC.OV ---
Vital Signs 04/09/23 10:39 Height 5 ft 10 in Weight 155 lb BMI 22.2 BP 118/70 Blood Pressure Location Lt brachial Position Sitting Pulse 54 Pulse Source Pulse Oximeter Pulse Oximetry (%) 98 Oxygen Delivery Method Room Air Intake Visit Reasons: 3 month f/u Allergies No Known Allergies [No Known Allergies*] Allergy (Verified 04/09/23 10:39) Tobacco use date assessed: 12/18/22 Dental Screening Dental Screen Date: 04/09/23 Did you have a dental visit in the last 12 months?: Yes Did you have a dental problem in the last 6 months where you did not have access to dental care?: No Was dental information given to patient?: Patient has dentist HPI 3 month f/u HPI Details 47-year-old male with GERD BPH Ciarra anxiety disorder last seen in December 2022 for physical exam patient is here for follow-up patient's colonoscopy is up-to-date. Review of the notes patient sees urology for recurrent epididymitis patient was evaluated for pelvic floor spasms has been advised avoid that dietary irritants as well as pelvic floor relaxation techniques. Patient was also referred to Gastroenterology due to history of abdominal pain showing Tammie mesentery patient felt better after Celebrex and eliminating gluten from the diet patient follows up with the abdominal pain resolving avoiding dairy as well as gluten and for the colonoscopy done in 2021 advised to repeat in 5-7 years. Patient did have a stress test done in January 2023 without any arrhythmia sore EKG changes. [facility]LY [facility] Medical History Colon cancer screening Gallbladder polyp Flank pain Chest wall pain Panniculitis Rib fractures Fatty liver Irritable bowel syndrome GERD (gastroesophageal reflux disease) Vitamin D deficiency Anxiety Surgical History Hx of colonoscopy History of esophagogastroduodenoscopy (EGD) H/O cystoscopy History of removal of skin mole Family History Father Lung cancer Parkinson disease Mother Alive and well Paternal Aunt Lung cancer Paternal Aunt No problems noted. Social History Housing: House Are you a primary respiratory care specialist to a significant other at home: No Do you presently have visiting nurse or other home services: No Alcohol intake: current Alcohol intake frequency: a few times a week Patient Tobacco Use Status: Never used Tobacco e-Cigarette/Vaping Use: Never Used Second Hand Smoke Exposure: No Current occupational status: employed Cognitive needs: No Hearing needs: No Vision needs: No Questionnaire PHQ-9 Over the last 2 weeks, how often have you been bothered by any of the following problems? 1. Little interest or pleasure in doing things: not at all 2. Feeling down, depressed, or hopeless: not at all 3. Trouble falling or staying asleep, or sleeping too much: not at all 4. Feeling tired or having little energy: not at all 5. Poor appetite or overeating: not at all 6. Feeling bad about yourself - or that you are a failure or have let yourself or your family down: not at all 7. Trouble concentrating on things, such as reading the newspaper or watching television: not at all 8. Moving or speaking so slowly that other people could have noticed. Or the opposite - being so fidgety or restless that you have been moving around a lot more than usual: not at all 9. Thoughts that you would be better off or of hurting yourself in some way: not at all Total score: 0 Depression Screening Interpretation: Negative Depression Screening Done: Yes Source: Developed by Drs. Christo Dee, Rosa Baird, Cliff Morales and colleagues, with an educational caryn from [employer]. Thrive Questionnaire Date Thrive assessed: 12/18/22 AUDIT C Alcohol Use Questionnaire (AUDIT-C) 1. How often do you have a drink containing alcohol?: Monthly or less 2. How many drinks containing alcohol do you have on a typical day when you are drinking?: 1 or 2 3. How often do you have six or more drinks on one occasion?: Never Total Score: 1 FLOR-7 AMB Questionnaire FLOR-7 Date FLOR - 7 assessed: 12/18/22 Source: Developed by Drs. Christo Dee, Rosa Baird, Cliff Morales and colleagues, with an educational caryn from [employer]. Physical exam (Primary Care) Vital Signs: Last Vital Signs Pulse 54 04/09/23 10:39 BP 118/70 04/09/23 10:39 Pulse Ox 98 04/09/23 10:39 Oxygen Delivery Method Room Air 04/09/23 10:39 BMI result Body Mass Index 22.2 Tobacco/Smoking Status: Tobacco use Status Tobacco use date assessed 12/18/22 04/09/23 10:43 Patient Tobacco Use Status Never used Tobacco 04/09/23 10:43 e-Cigarette/Vaping Use Never Used 04/09/23 10:43 PHQ-9: PHQ-9 Score PHQ-9: Total score 0 04/09/23 10:43 Depression Screening Interpretation: Negative Thrive Assessment: Date of Thrive Assessment Date Thrive assessed 12/18/22 04/09/23 10:43 Const General: alert; No acute distress Eyes Conjunctivae: conjunctivae normal Resp Auscultation: clear to auscultation bilaterally Cardio Rate: regular rate Rhythm: regular rhythm GI Inspection: Yes normal to inspection Extrem General: Yes normal to inspection and No edema Assessment and Plan Assessment & Plan (1) GERD (gastroesophageal reflux disease): Code(s): K21.9 - Gastro-esophageal reflux disease without esophagitis Qualifiers: Esophagitis presence: without esophagitis Qualified Code(s): K21.9 - Gastro-esophageal reflux disease without esophagitis Plan: Avoid the foods that causes that usually spicy foods, tomato products, juices, coffee, soda and foods that your sensitive to. After eating do not lie down, allow 3-4 hours before in lie down. And keep the head of bed above 30 degrees to avoid the acid from going up. (2) Irritable bowel syndrome with diarrhea: Code(s): K58.0 - Irritable bowel syndrome with diarrhea Plan: Patient follows up with Gastroenterology eliminating gluten and dairy in the diet (3) Chest pain: Code(s): R07.9 - Chest pain, unspecified Plan: Cardiac workup has been negative but discussed with the patient any changes and chest pain or persistence to call for further workup (4) Generalized anxiety disorder: Comment: Declined any referral for counseling( September 2021) Code(s): F41.1 - Generalized anxiety disorder Plan: Continue with medications (5) Elevated fasting blood sugar: Code(s): R73.01 - Impaired fasting glucose Plan: Decrease the amount of carbohydrate intake, pasta, bread, rice and potatoes are all sugar and that is aside from all the sweet stuff, remember that fruits are good but they are Sweet also. Coding Level of Care Code Est Pt Level 4 (24935) Diagnoses Gastroesophageal reflux disease without esophagitis K21.9 Esophagitis presence: without esophagitis Irritable bowel syndrome with diarrhea K58.0 Chest pain R07.9 Generalized anxiety disorder F41.1 Elevated fasting blood sugar R73.01
== END 2023-04-09 12:09 | disposition home or self-care (01) ==
PROVIDERS: PCP Internal Medicine; Visit Provider Internal Medicine
DX: K21.9 Gastro-esophageal reflux disease without esophagitis (principal); K58.0 Irritable bowel syndrome with diarrhea; R07.9 Chest pain, unspecified; F41.1 Generalized anxiety disorder; R73.01 Impaired fasting glucose
CPT/HCPCS: 99214

== ENCOUNTER 2023-04-26 13:12 | Outpatient (REF) | payer BC, SELFPAY ==
[2023-04-26 15:19] LABS: Appearance Urine Clear; Color Urine Yellow; Glucose Urine UA Negative (Negative); Leukocyte Esterase Urine Negative (Negative); Nitrite Urine Negative (Negative); PH 5.5 (5.0-9.0); Specific Gravity - Urine 1.015 (1.005-1.025); Urine Blood Negative (Negative); Urine Ketones Negative (Negative); Urine Protein Negative (Neg-Trace)
[2023-04-26 15:26] LABS: Bacteria Urine None Seen (None Seen); Hyaline Casts Urine 0-2 /LPF (0-2); RBC Urine 0-2 /HPF (0-2); Squamous Epithelial Cell Urine 0-2 /HPF (0-2); WBC Urine 0-5 /HPF (0-5)
== END 2023-04-26 13:13 | disposition home or self-care (01) ==
LOC: HO.LAB 13:12
PROVIDERS: PCP Internal Medicine; Visit Provider Urology
DX: R35.0 Frequency of micturition (principal)
CPT/HCPCS: 81001; 87086

== ENCOUNTER 2023-11-10 09:26 | Emergency (ER) | payer BC, SELFPAY ==
--- NOTE | ~2023-11-10 | XR_ITS ---
EXAMINATION: XR CHEST CLINICAL INFORMATION: Weight loss with palpitations COMPARISON: 01/25/2023 TECHNIQUE: 2 views of the chest were obtained. FINDINGS: No acute finding. The lung hatfield are felt to be grossly clear. There is no evidence for infiltrate. No effusion. The cardiac silhouette is within normal limits. The hilar regions do not appear pathologically enlarged. There is no effusion. XR/XR chest 2V IMPRESSION: No acute finding.
[2023-11-10 09:31] VITALS: BP 132/83; PULSE 55; RESP 18; TEMP 36.6; O2SAT 98; BMI 21.6
--- NOTE | 2023-11-10 10:18 | ED.GENADULT ---
HPI - General Adult General Chief complaint: General Medical Stated complaint: Body aches, shakiness 3 days Time Seen by Provider: 11/10/23 10:18 Source: patient Mode of arrival: ambulatory Limitations: no limitations History of Present Illness ED Provider: Rena Heart PA-C HPI narrative: Patient is a 48 year old assigned male at with a history of anxiety, GERD, BPH, and an essential tremor presenting to the emergency department today with body aches, headache, fatigue, and being told by others he appears to be losing weight. Patient states that over the last few days he has been told that he looks to be losing weight despite his scale saying his weight is the same. Patient states that he also has a headache, fatigue, and body aches but denies any cough or congestion. Patient denies any dizziness, lightheadedness, abdominal pain, nausea, vomiting, fever, chills, blurry vision, double vision, loss of vision, chest pain, difficulty breathing, shortness of breath, back pain, night sweats, pain with urination, increased urinary frequency, increased urinary urgency, blood in his urine or stool, syncope or a near syncopal episode, recent trauma or falls, bowel incontinence, bladder incontinence, bowel retention, bladder retention, or any other complaints at this time. Onset (ago): day(s) Relieving factors: none Exacerbating factors: none Associated symptoms: headaches Treatments prior to arrival: none Related Data Home Medications ?Medication ?Instructions ?Recorded ?Confirmed lorazepam 1 mg tablet 1 mg PO DAILY PRN Anxiety 08/27/20 12/18/22 primidone 250 mg tablet 500 mg PO BEDTIME 10/08/21 12/18/22 mirtazapine 7.5 mg tablet 3.75 mg PO BEDTIME 12/18/22 12/18/22 propranolol 40 mg tablet 40 mg PO DAILY 12/18/22 12/18/22 buspirone 15 mg tablet 15 mg PO BID 03/26/23 Previous Rx's ?Medication ?Instructions ?Recorded celecoxib 200 mg capsule (Celebrex) 200 mg PO DAILY PRN pain #30 caps 09/21/23 Allergies Allergy/AdvReac Type Severity Reaction Status Date / Time No Known Allergies Allergy Verified 11/10/23 09:33 [No Known Allergies*] Review of Systems Constitutional: Constitutional: Reports no additional constitutional complaints, Denies chills, Reports fatigue, Denies fever(s), Reports headache(s) and Denies night sweats Eyes: Eyes: Reports no additional eye complaints, Denies blurry vision, Denies change in vision, Denies diplopia, Denies eye discharge, Denies loss of vision and Denies eye pain ENT: Denies dizziness and Reports headache(s) Cardiovascular: Cardiovascular: Reports no additional cardiovascular complaints, Denies chest pain, Denies lightheadedness, Denies Loss of Consciousness and Denies dyspnea Respiratory: Respiratory: Reports no additional respiratory complaints and Denies dyspnea Gastrointestinal: Gastrointestinal: Reports no additional gastrointestinal complaints, Denies abdominal pain, Denies melena, Denies hematochezia, Denies change in bowel habits and Denies change in stool character Genitourinary: Genitourinary: Reports no additional male genitourinary complaints, Denies hematuria, Denies oliguria, Denies difficulty urinating, Denies dysuria, Denies urinary frequency, Denies urinary hesitancy, Denies urinary incontinence and Denies urinary urgency Musculoskeletal: Musculoskeletal: Reports no additional musculoskeletal complaints, Denies numbness and Denies tingling Neurologic: Denies dizziness, Reports headache(s), Denies loss of vision, Denies numbness and Denies tingling Psychiatric: Psychiatric: Reports no additional psychiatric complaints Endocrine: Endocrine: Reports no additional endocrine complaints and Reports fatigue Hematologic/Lymphatic: Hematologic/Lymphatic: Reports no additional hematologic/lymphatic complaints Allergic/Immunologic: Allergic/Immunologic: Reports no additional allergic/immunologic complaints PMF Past Medical History Attestation statement: The following information was validated with the patient. Source: old records reviewed and nursing notes reviewed Medical History Colon cancer screening Gallbladder polyp Flank pain Chest wall pain Panniculitis Rib fractures Fatty liver Irritable bowel syndrome GERD (gastroesophageal reflux disease) Vitamin D deficiency Anxiety Surgical History Hx of colonoscopy History of esophagogastroduodenoscopy (EGD) H/O cystoscopy History of removal of skin mole Family History Family History Father Lung cancer Parkinson disease Mother Alive and well Paternal Aunt Lung cancer Paternal Aunt No problems noted. Social History Social History Housing: House Are you a primary health and social care teacher to a significant other at home: No Do you presently have visiting nurse or other home services: No Alcohol intake: current Alcohol intake frequency: a few times a week Patient Tobacco Use Status: Never used Tobacco e-Cigarette/Vaping Use: Never Used Second Hand Smoke Exposure: No Advance Directives: No Advance Directives Information Provided: Yes Do you have a plan to hurt others: No Plan Current occupational status: employed Cognitive needs: No Hearing needs: No Vision needs: No Physical Exam ED Vital Signs: Vital Signs - 24 hr 11/10/23 09:31 11/10/23 10:29 11/10/23 13:42 Temperature 98 F 98.3 F 98.3 F Pulse Rate 55 55 55 Respiratory Rate 18 14 14 Blood Pressure 132/83 115/74 115/74 Pulse Oximetry 98 99 99 Oxygen Delivery Method Room Air Room Air BMI result Body Mass Index 21.6 Const General: cooperative, no acute distress, alert and awake Nutritional Appearance: well nourished Orientation/consciousness: patient oriented x3 Limitations: no limitations HENMT Head: Yes normal to inspection and Yes atraumatic Ears: hearing grossly normal bilaterally and external ears normal General nose exam: Normal external nose present, no nasal discharge noted and no epistaxis Face and sinus: Yes normal facial exam, No abrasion and No laceration Mouth: Normal oral and palatal mucosa present, no drooling and no muffled voice Eyes General: appearance normal, both eyes and all related structures Periorbital: periorbital findings normal Eyelids: Yes eyelids normal Conjunctivae: conjunctivae normal Pupils: Equal, round and reactive pupils present EOM: EOMs intact bilaterally Neck Neck: Yes normal visual inspection, Yes full ROM and Yes no lymphadenopathy Chest Chest palpation & inspection: normal inspection of the chest Resp Effort & Inspection: normal respiratory effort and able to speak in complete sentences GI Inspection: Yes normal to inspection Neuro General: patient oriented x3 and moves all extremities Cranial nerves: Yes Equal, round and reactive pupils present Cognition (Neuro): normal cognition Motor exam (neuro): 5/5 motor strength present throughout Sensory Exam: Normal double simultaneous stimulation for sensation Coordination: [id number] test normal Extrem General: Yes normal to inspection, Yes full ROM and Yes capillary refill normal Psych Appearance: grossly normal Mental Status: mental status grossly normal Affect: normal affect Attitude: cooperative Thought process: Normal thought process present Thought content: Normal thought content present Insight: Good insight present (Psych) Medical Decision Making Medical Decision Making [facility] Narrative: Patient is a 48 year old assigned male at with a history of anxiety, GERD, BPH, and an essential tremor presenting to the emergency department today with body aches, headache, and fatigue. Patient's physical exam was unremarkable. Patient's blood work was unremarkable. Patient's urine showed no acute process. Patient's EKG was unremarkable. Patient's chest x-ray showed no acute process. I explained my physical exam findings as well as all test results to the patient. I answered all questions asked by the patient. I stressed the importance of the patient taking his medication as prescribed. I stressed the importance of the patient following up with his primary care provider. I stressed the importance of the patient returning to the emergency department immediately if his symptoms were to worsen or if he were to develop any dizziness, shortness of breath, difficulty breathing, chest pain, blurry vision, loss of vision, nausea, vomiting, abdominal pain, fever, chills, back pain, or any other complaints. Patient verbalized agreement and understanding with this treatment plan and discharge. Differential Diagnosis Differential Diagnoses: The differential diagnosis associated with the presentation includes Viral illness COVID-19 Influenza Fatigue Admission/Observation Consideration of admission/observation: Escalation of care including admission/observation considered Patient would have been admitted to the hospital had his work up had any findings where hospital admission was appropriate and his clinical presentation warranted hospital admission. Lab Data [facility] Lab Attestation statement: I reviewed the patient's lab results. My interpretation of these results are in the [facility] Rationale portion of this note. 11/10/23 10:49 11/10/23 10:49 Labs: Lab Results 11/10/23 11/10/23 11/10/23 Range/Units 09:47 10:49 10:57 WBC 4.5 L (4.8-10.8) X10*3/uL RBC 4.85 (4.60-5.80) X10*6/uL Hgb 15.0 (14.0-18.0) g/dl Hct 43.4 (42.0-52.0) % MCV 89.5 (80.0-98.0) fL MCH 30.9 (27.0-33.0) pg MCHC 34.6 (31.0-36.0) g/dl RDW 12.3 (11.0-16.0) % Plt Count 233 (160-400) X10*3/uL MPV 10.7 (9.4-12.4) fL Immature Gran % (Auto) 0.2 (0.0-0.4) % Neut % (Auto) 56.9 (45-73) % Lymph % (Auto) 28.7 (20-40) % Jefferson % (Auto) 11.7 H (2-11) % Eos % (Auto) 1.6 (0-4) % Baso % (Auto) 0.9 (0-2) % Lymph # (Auto) 1.3 (1.2-4.9) X10*3/uL Jefferson # (Auto) 0.5 (0.1-1.2) X10*3/uL Eos # (Auto) 0.1 (0.0-0.4) X10*3/uL Baso # (Auto) 0.0 (0.0-0.2) X10*3/uL Abs Immat Gran (auto) 0.01 (0.00-0.03) X10*3/uL Absolute Neuts (auto) 2.5 (2.0-8.3) x10*3/uL Absolute Nucleated RBC 0.000 (0.0-0.012) X10*3/uL Nucleated RBC % (auto) 0.0 (0.0-0.2) /100WBC PT 15.1 H (11.1-13.3) SEC INR 1.2 H (0.9-1.1) APTT 29.8 (26.0-36.8) SEC Sodium 140 (135-145) mmol/L Potassium 4.4 (3.3-5.1) mmol/L Chloride 106 (96-108) mmol/L Carbon Dioxide 30 H (22-29) mmol/L Anion Gap 8 L (12-20) BUN 18 H (9-16) mg/dL Creatinine 1.11 (0.5-1.4) mg/dL Estim Creat Clear Calc 80.0 Estimated GFR > 60 Random Glucose 96 (60-115) mg/dL Estimat Average Glucose 100 mg/dL Hemoglobin A1c % 5.1 (<6.0) % Calcium 9.1 (8.4-10.2) mg/dL Magnesium 2.0 (1.6-2.6) mg/dL Total Bilirubin 0.4 (0.0-1.0) mg/dL AST 15 (5-37) U/L ALT 17 (0-40) U/L Alkaline Phosphatase 37 L (39-117) U/L Troponin I High Sens < 2.7 (<3.5-35.0) ng/L Total Protein 6.4 L (6.5-8.0) g/dL Albumin 4.1 (3.5-5.0) g/dL Beta-Hydroxybutyrate 0.17 (0.02-0.27) mmol/L TSH 1.09 (0.32-4.0) uIU/mL Urine Color Yellow Urine Appearance Clear Urine pH 7.0 (5.0-9.0) Ur Specific [place] <= 1.005 (1.005-1.025) Urine Protein Negative (Neg-Trace) mg/dL Urine Glucose (UA) Negative (Negative) mg/dL Urine Ketones Negative (Negative) mg/dL Urine Blood Negative (Negative) Urine Nitrite Negative (Negative) Ur Leukocyte Esterase Negative (Negative) Respiratory Panel [place] Adenovirus (Rapid PCR) (Not Detect.) B.pert (TEM-PCR) (Not Detect.) B.parapertussis DNA PCR (Not Detect.) C. pneumoniae DNA (PCR) (Not Detect.) Coronavirus OC43 (PCR) (Not Detect.) Coronavirus HKU1 (PCR) (Not Detect.) Coronavirus 229E (PCR) (Not Detect.) Coronavirus NL63 (PCR) (Not Detect.) Monoscreen (Negative) Human Metapneumovir PCR (Not Detect.) Influenza A (RT-PCR) (Not Detect.) Influenza Type A (PCR) NEGATIVE (Negative) Influenza B (RT-PCR) (Not Detect.) Influenza Type B (PCR) NEGATIVE (Negative) M. pneumoniae (PCR) (Not Detect.) Parainfluenza 1 (PCR) (Not Detect.) Parainfluenza 2 (PCR) (Not Detect.) Parainfluenza 3 (PCR) (Not Detect.) Parainfluenza 4 (PCR) (Not Detect.) RSV (PCR) (Not Detect.) RSV RNA Qual (PCR) NEGATIVE (Negative) Entero/Rhino (PCR) (Not Detect.) SARS-CoV-2 RNA (RT-PCR) NEGATIVE (Negative) S. pyogenes GrpA NATE Negative (Negative) 11/10/23 11/10/23 Range/Units 11:15 11:55 WBC (4.8-10.8) X10*3/uL RBC (4.60-5.80) X10*6/uL Hgb (14.0-18.0) g/dl Hct (42.0-52.0) % MCV (80.0-98.0) fL MCH (27.0-33.0) pg MCHC (31.0-36.0) g/dl RDW (11.0-16.0) % Plt Count (160-400) X10*3/uL MPV (9.4-12.4) fL Immature Gran % (Auto) (0.0-0.4) % Neut % (Auto) (45-73) % Lymph % (Auto) (20-40) % Jefferson % (Auto) (2-11) % Eos % (Auto) (0-4) % Baso % (Auto) (0-2) % Lymph # (Auto) (1.2-4.9) X10*3/uL Jefferson # (Auto) (0.1-1.2) X10*3/uL Eos # (Auto) (0.0-0.4) X10*3/uL Baso # (Auto) (0.0-0.2) X10*3/uL Abs Immat Gran (auto) (0.00-0.03) X10*3/uL Absolute Neuts (auto) (2.0-8.3) x10*3/uL Absolute Nucleated RBC (0.0-0.012) X10*3/uL Nucleated RBC % (auto) (0.0-0.2) /100WBC PT (11.1-13.3) SEC INR (0.9-1.1) APTT (26.0-36.8) SEC Sodium (135-145) mmol/L Potassium (3.3-5.1) mmol/L Chloride (96-108) mmol/L Carbon Dioxide (22-29) mmol/L Anion Gap (12-20) BUN (9-16) mg/dL Creatinine (0.5-1.4) mg/dL Estim Creat Clear Calc Estimated GFR Random Glucose (60-115) mg/dL Estimat Average Glucose mg/dL Hemoglobin A1c % (<6.0) % Calcium (8.4-10.2) mg/dL Magnesium (1.6-2.6) mg/dL Total Bilirubin (0.0-1.0) mg/dL AST (5-37) U/L ALT (0-40) U/L Alkaline Phosphatase (39-117) U/L Troponin I High Sens (<3.5-35.0) ng/L Total Protein (6.5-8.0) g/dL Albumin (3.5-5.0) g/dL Beta-Hydroxybutyrate (0.02-0.27) mmol/L TSH (0.32-4.0) uIU/mL Urine Color Urine Appearance Urine pH (5.0-9.0) Ur Specific [place] (1.005-1.025) Urine Protein (Neg-Trace) mg/dL Urine Glucose (UA) (Negative) mg/dL Urine Ketones (Negative) mg/dL Urine Blood (Negative) Urine Nitrite (Negative) Ur Leukocyte Esterase (Negative) Respiratory Panel [place] See Note Adenovirus (Rapid PCR) Not Detected (Not Detect.) B.pert (TEM-PCR) Not Detected (Not Detect.) B.parapertussis DNA PCR Not Detected (Not Detect.) C. pneumoniae DNA (PCR) Not Detected (Not Detect.) Coronavirus OC43 (PCR) Not Detected (Not Detect.) Coronavirus HKU1 (PCR) Not Detected (Not Detect.) Coronavirus 229E (PCR) Not Detected (Not Detect.) Coronavirus NL63 (PCR) Not Detected (Not Detect.) Monoscreen Negative (Negative) Human Metapneumovir PCR Not Detected (Not Detect.) Influenza A (RT-PCR) Not Detected (Not Detect.) Influenza Type A (PCR) (Negative) Influenza B (RT-PCR) Not Detected (Not Detect.) Influenza Type B (PCR) (Negative) M. pneumoniae (PCR) Not Detected (Not Detect.) Parainfluenza 1 (PCR) Not Detected (Not Detect.) Parainfluenza 2 (PCR) Not Detected (Not Detect.) Parainfluenza 3 (PCR) Not Detected (Not Detect.) Parainfluenza 4 (PCR) Not Detected (Not Detect.) RSV (PCR) Not Detected (Not Detect.) RSV RNA Qual (PCR) (Negative) Entero/Rhino (PCR) Not Detected (Not Detect.) SARS-CoV-2 RNA (RT-PCR) Not Detected (Negative) S. pyogenes GrpA NATE (Negative) Independent Interpretation I performed an independent interpretation of an: EKG and Plain X-Ray Interpretation: My interpretation is in agreement with the radiologist's impression of this imaging study. EXAMINATION: XR CHEST CLINICAL INFORMATION: Weight loss with palpitations COMPARISON: 01/25/2023 TECHNIQUE: 2 views of the chest were obtained. FINDINGS: No acute finding. The lung hatfield are felt to be grossly clear. There is no evidence for infiltrate. No effusion. The cardiac silhouette is within normal limits. The hilar regions do not appear pathologically enlarged. There is no effusion. XR/XR chest 2V IMPRESSION: No acute finding. Dictated By: Otis Linder MD Signed By: Electronically signed by Otis Linder MD 11/10/23 1337 Vent. Rate: 050 BPM Atrial Rate: 050 BPM P-R Int: 160 ms QRS Dur: 096 ms QT Int: 410 ms P-R-T Axes: 067 087 049 degrees QTc Int: 373 ms Sinus bradycardia Otherwise normal ECG When compared with ECG of 25-JAN-2023 12:21, No significant change was found DD/ 1033 Radiology Impression Discussion of test interpretation with radiology: I have reviewed the radiologist's reading. Discharge Plan Discharge Clinical Impression: Headache, Fatigue, Viral illness Patient Disposition: Home, Self-Care Instructions: Viral Syndrome (ED), Fatigue (ED) Additional Instructions: Your work up today was negative for any acute process. Your symptoms are most consistent with a viral syndrome. If your tick borne illness testing were to come back positive, we will call you. Follow up with your primary care provider. Return to the emergency department immediately if your symptoms worsen or if you develop any dizziness, shortness of breath, difficulty breathing, chest pain, blurry vision, loss of vision, nausea, vomiting, abdominal pain, fever, chills, back pain, or any other complaints. Prescriptions: No Action celecoxib [Celebrex] 200 mg capsule 200 mg PO DAILY PRN (Reason: pain) Qty: 30 3RF lorazepam 1 mg tablet 1 mg PO DAILY PRN (Reason: Anxiety) primidone 250 mg tablet 500 mg PO BEDTIME Rx Instructions: TREMORS mirtazapine 7.5 mg tablet 3.75 mg PO BEDTIME propranolol 40 mg tablet 40 mg PO DAILY buspirone 15 mg tablet 15 mg PO BID Referrals: Brady Krishna MD [Primary Care Provider] - Stand Alone Forms: Work/School Release Interventions: ED Discharge Assessment Last Done: 11/10/23 13:42 Discharge Date/Time: 11/10/23 13:43 Print Language: Bahraini
--- NOTE | 2023-11-10 10:24 | ECG_ITS ---
Test Reason : PALPITATIONS Blood Pressure : / mmHG Vent. Rate : 050 BPM Atrial Rate : 050 BPM P-R Int : 160 ms QRS Dur : 096 ms QT Int : 410 ms P-R-T Axes : 067 087 049 degrees QTc Int : 373 ms Sinus bradycardia Otherwise normal ECG When compared with ECG of 25-JAN-2023 12:21, No significant change was found Referred By: Rena Heart Electronically Signed By:YANELIS QUINN
[2023-11-10 10:29] VITALS: BP 115/74; PULSE 55; RESP 14; TEMP 36.8; O2SAT 99
[2023-11-10 10:53] LABS: Influenza A PCR NEGATIVE (Negative); Influenza B PCR NEGATIVE (Negative); Resp Syncy Virus RNA Qual PCR NEGATIVE (Negative); SARS COV2 PCR INHOUSE NEGATIVE (Negative)
[2023-11-10 10:56] LABS: MANUAL DIFF FLAG NO
[2023-11-10 10:59] LABS: Basophils Percent Auto 0.9 % (0-2); Eosinophils Absolute Auto 0.1 X10*3/uL (0.0-0.4); Eosinophils Percent Auto 1.6 % (0-4); Hematocrit 43.4 % (42.0-52.0); Imm Gran Abs Auto 0.01 X10*3/uL (0.00-0.03); Imm Gran Pct Auto 0.2 % (0.0-0.4); Lymphocytes Absolute Auto 1.3 X10*3/uL (1.2-4.9); Lymphocytes Percent Auto 28.7 % (20-40); Mean Corpuscular HGB Conc 34.6 g/dl (31.0-36.0); Mean Corpuscular Hemoglobin 30.9 pg (27.0-33.0); Mean Corpuscular Volume 89.5 fL (80.0-98.0); Mean Platelet Volume 10.7 fL (9.4-12.4); Monocytes Absolute Auto 0.5 X10*3/uL (0.1-1.2); Monocytes Percent Auto 11.7 % (2-11); Neutrophils Absolute Auto 2.5 x10*3/uL (2.0-8.3); Neutrophils Percent Auto 56.9 % (45-73); Platelet Count 233 X10*3/uL (160-400); Red Blood Count 4.85 X10*6/uL (4.60-5.80); Red Cell Distribution Width 12.3 % (11.0-16.0); White Blood Count 4.5 X10*3/uL (4.8-10.8)
[2023-11-10 11:06] LABS: Appearance Urine Clear; Color Urine Yellow; Glucose Urine UA Negative (Negative); Leukocyte Esterase Urine Negative (Negative); Nitrite Urine Negative (Negative); Specific Gravity - Urine <= 1.005 (1.005-1.025); Urine Blood Negative (Negative); Urine Ketones Negative (Negative); Urine Protein Negative (Neg-Trace)
[2023-11-10 11:16] LABS: INTERNATIONAL NORM RATIO 1.2 (0.9-1.1); Prothrombin Time 15.1 SEC (11.1-13.3)
[2023-11-10 11:17] LABS: Estimated Average Glucose 100 mg/dL; Hemoglobin A1C 128.8998 umol/L; Hemoglobin A1c % 5.1 % (<6.0)
[2023-11-10 11:18] LABS: Beta-Hydroxybutyrate 0.17 mmol/L (0.02-0.27)
[2023-11-10 11:19] LABS: Partial Thromboplastin Time 29.8 SEC (26.0-36.8)
[2023-11-10 11:22] LABS: IDNOW Serial# 08D9AD1C; Strep A Nucleic Acid Negative (Negative); Troponin-I High Sensitivity < 2.7 ng/L (<3.5-35.0)
[2023-11-10 11:24] LABS: Alanine Aminotransferase 17 U/L (0-40); Albumin Level 4.1 g/dL (3.5-5.0); Alkaline Phosphatase 37 U/L (39-117); Anion Gap 8 (12-20); Aspartate Amino Transferase 15 U/L (5-37); Bilirubin Total 0.4 mg/dL (0.0-1.0); Blood Urea Nitrogen 18 mg/dL (9-16); Calcium 9.1 mg/dL (8.4-10.2); Carbon Dioxide 30 mmol/L (22-29); Chloride 106 mmol/L (96-108); Estimated Glomerular Filt Rate > 60; Glucose Random 96 mg/dL (60-115); Potassium 4.4 mmol/L (3.3-5.1); Sodium 140 mmol/L (135-145); Total Protein 6.4 g/dL (6.5-8.0)
[2023-11-10 11:36] LABS: TSH reflex Free T4 1.09 uIU/mL (0.32-4.0)
[2023-11-10 11:48] LABS: Monotest Negative (Negative)
[2023-11-10 12:58] LABS: Adenovirus PCR Not Detected (Not Detect.); Bordetella parapertussis PCR Not Detected (Not Detect.); Bordetella pertussis PCR Not Detected (Not Detect.); Chlamydia pneumoniae PCR Not Detected (Not Detect.); Coronavirus 229E PCR Not Detected (Not Detect.); Coronavirus HKU1 PCR Not Detected (Not Detect.); Coronavirus NL63 PCR Not Detected (Not Detect.); Coronavirus OC43 PCR Not Detected (Not Detect.); Human metapneumovirus PCR Not Detected (Not Detect.); Influenza A PCR Not Detected (Not Detect.); Influenza B PCR Not Detected (Not Detect.); Mycoplasma pneumoniae PCR Not Detected (Not Detect.); Parainfluenza 1 PCR Not Detected (Not Detect.); Parainfluenza 2 PCR Not Detected (Not Detect.); Parainfluenza 3 PCR Not Detected (Not Detect.); Parainfluenza 4 PCR Not Detected (Not Detect.); RSV PCR Not Detected (Not Detect.); Rhino/Enterovirus PCR Not Detected (Not Detect.)
[2023-11-10 13:08] LABS: SARS-CoV-2 PCR Not Detected (Not Detect.)
[2023-11-10 13:42] VITALS: BP 115/74; PULSE 55; RESP 14; TEMP 36.8; O2SAT 99
[2023-11-12 17:53] LABS: A. Phagocytphilium DNA,RT-PCR NOT DETECTED (NOT DETECTED); Babesia Microti DNA, RT-PCR NOT DETECTED (NOT DETECTED); Borrelia Miyamotoi,DNA RT-PCR NOT DETECTED (NOT DETECTED); E.Chaffeensis DNA RT-PCR NOT DETECTED (NOT DETECTED); Lyme(Borrelia ssp)DNA RT-PCR NOT DETECTED (NOT DETECTED)
== END 2023-11-10 13:43 | disposition home or self-care (01) ==
PROVIDERS: Physician Assistant Medical; Emergency Provider Emergency Medicine; PCP Internal Medicine
DX: B34.9 Viral infection, unspecified (principal); R51.9 Headache, unspecified; R53.83 Other fatigue; R00.2 Palpitations; R00.1 Bradycardia, unspecified; R63.4 Abnormal weight loss; Z68.21 Body mass index [BMI] 21.0-21.9, adult; G25.0 Essential tremor; F41.9 Anxiety disorder, unspecified; K21.9 Gastro-esophageal reflux disease without esophagitis; F41.1 Generalized anxiety disorder; R07.89 Other chest pain; Z79.899 Other long term (current) drug therapy; Z03.818 Encounter for observation for suspected exposure to other biological agents ruled out
CPT/HCPCS: 0241U; 36415; 71046; 80053; 81003; 82010; 83036; 83735; 84443; 84484; 85025; 85610; 85730; 86308; 87468; 87469; 87478; 87484; 87633; 87651; 87798; 93005; 99283; 99284

== ENCOUNTER → 2023-11-10 10:24 | Outpatient (BNV) | payer BC, SELFPAY | PROVIDERS: Emergency Provider Emergency Medicine; PCP Internal Medicine; Visit Provider Internal Medicine | DX: R00.1 Bradycardia, unspecified (principal); R00.2 Palpitations | CPT/HCPCS: 93010 ==

== ENCOUNTER 2023-11-19 12:19 | Outpatient (AMB) | payer BC, SELFPAY ==
--- NOTE | 2023-11-19 12:22 | A.OFFVIS_ITS ---
Vital Signs 11/19/23 12:25 Height 5 ft 11 in Weight 156 lb 8.451 oz BMI 21.8 BP 97/67 Blood Pressure Location Lt brachial Position Sitting Pulse 58 Intake Visit Reasons: 1 yr follow up Intake Note: Mario presents in the office as a 1 year follow up. CC: He states that he wants to talk to talk about a recent flare up. Pains in the RUQ. He wants to know if this is GERD potentially. Went to the ED a week ago and he had testing done and was told there was not any major problems. Adult And Pediatric Neurologist Required: No Allergies No Known Allergies [No Known Allergies*] Allergy (Verified 11/19/23 12:25) HPI Comments Details: 47y.o M with PMH of FLOR, BPH, IBS-D who is here for follow up of abd pain. 07/28/22: Pt reports he has been having generalised abd pain and discomfort since Mar 2022. Was also seen in ER for this and had a CT abd/pelvis which showed gómez mesentery . Describes as vague pain which feels different than a routine stomachache or cramping. Waxes and wanes but regular and present most days of the week. Did not change with eating or passing BMs. BMs continue to fluctuated between constipation and diarrhea. Recently has had some improvement in his sx with celebrex, however at the same time, has also been eliminating gluten from his diet unsure which helped more. No new rash, vision changes, joint pains with this pain. Prior to this does have a background of IBS with diarrhea predominance for almost 25 years now. Thinks may be even back in high school. With IBS his symptoms were more of abd cramping with urgency to defecate and that would improve the cramping. Each episode would last 2-3 days. No fam hx of colon cancer or IBD. Workup: Normal white count, H&H in platelets. Normal renal function. Had low alkaline phosphatase x2. Imaging as noted previously. EGD/colonoscopy 06/12/2022: Semi pedunculated polyp 6 mm and descending colon. Internal hemorrhoids. Irregular Z-line. Normal stomach and duodenum. Path: Congested duodenal mucosa with preserved midline. Mild chronic inactive inflammation in stomach. Mild inflammation and GE junction. Tubular adenoma. 09/23/22: Discontinued celebrex on a daily basis. Now takes it PRN. Did not notice any worsening in abd discomfort on decreasing the celebrex. Labs reviewed with the pt which are all normal except Zinc which also explains the low ALP. Pt does bring up weight loss of almost 10lbs in the last couple of months. However this is the context of diet changes with elimination of gluten and dairy. 03/26/23: Coming in today for 6 monthly follow up. In the interim was seen by his PCP for atypical chest pain and underwork up which was all normal including stress test. Currently no new GI complaints. Has been doing well with dairy and gluten avoidance. Off celebrex completely and does not notice any return of sx. 11/19/23: Here for routine follow up. No GI sx. More recently had recurrence of burning RUQ pain. Almost seems like a rib pain. Went away with cerebrex. Was also seen in ER at [facility] for pain as well as ongoing fatigue. Underwent US RUQ which showed that known GB polyp is unchanged in size. [facility] Medical History Colon cancer screening Gallbladder polyp Flank pain Chest wall pain Panniculitis Rib fractures Fatty liver Irritable bowel syndrome GERD (gastroesophageal reflux disease) Vitamin D deficiency Anxiety Surgical History Hx of colonoscopy History of esophagogastroduodenoscopy (EGD) H/O cystoscopy History of removal of skin mole Family History Father Lung cancer Parkinson disease Mother Alive and well Paternal Aunt Lung cancer Paternal Aunt No problems noted. Social History Housing: House Are you a primary personal care aide to a significant other at home: No Do you presently have visiting nurse or other home services: No Alcohol intake: current Alcohol intake frequency: a few times a week Patient Tobacco Use Status: Never used Tobacco e-Cigarette/Vaping Use: Never Used Second Hand Smoke Exposure: No Current occupational status: employed Cognitive needs: No Hearing needs: No Vision needs: No Physical Exam Vital Signs: Last Vital Signs Pulse 58 11/19/23 12:25 BP 97/67 11/19/23 12:25 BMI result Body Mass Index 21.8 No apparent distress Nonicteric Abdomen soft, nondistended Alert and oriented x3, normal gait Assessment & Plan Assessment & Plan (1) Abdominal pain: Code(s): R10.9 - Unspecified abdominal pain Category: Medical (2) 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 Abdominal pain, diarrhea: No issues recently, well controlled. 2. Intermittent RUQ pain: Pt also with hx of GB polyp - advised to upload US report to portal for review. If pain recurs frequently can consider dedicated imaging MRI vs HIDA. Otherwise, clinically consistent with costochondritis given location and character. Resolved with celebrex. 3. Hx of polyp: Pedunculated 6mm tubular adenoma on colo 2021. Recommend repeat in [id number]. Follow up in 1 year, sooner PRN. Coding Level of Care Code Est Pt Level 3 (34405) Diagnoses Abdominal pain R10.9 Mesenteric panniculitis K65.4 Personal history of colonic polyps Z86.010 Intermittent right upper quadrant abdominal pain R10.11
[2023-11-19 12:25] VITALS: BP 97/67; PULSE 58; BMI 21.8
== END 2023-11-19 13:19 | disposition home or self-care (01) ==
PROVIDERS: PCP Internal Medicine; Visit Provider Internal Medicine
DX: R10.9 Unspecified abdominal pain (principal); K65.4 Sclerosing mesenteritis; Z86.010 Personal history of colon polyps; R10.11 Right upper quadrant pain
CPT/HCPCS: 99213

== ENCOUNTER → 2023-11-19 12:19 | Outpatient (BNVA) | payer BC, SELFPAY | PROVIDERS: PCP Internal Medicine; Visit Provider Internal Medicine ==

== ENCOUNTER 2023-12-23 08:54 | Outpatient (AMB) | payer BC, SELFPAY ==
[2023-12-23 09:05] VITALS: BP 106/68; PULSE 57; O2SAT 97; BMI 21.6
--- NOTE | 2023-12-23 09:05 | A.OFFPC_ITS ---
Vital Signs 12/23/23 09:05 Height 5 ft 11 in Weight 155 lb BMI 21.6 BP 106/68 Blood Pressure Location Lt brachial Position Sitting Pulse 57 Pulse Source Pulse Oximeter Pulse Oximetry (%) 97 Oxygen Delivery Method Room Air Intake Visit Reasons: pe Allergies No Known Allergies [No Known Allergies*] Allergy (Verified 12/23/23 09:05) Medication List - Last Reconciled 12/23/23 by Brady Krishna MD celecoxib (Celebrex) 200 mg PO DAILY PRN lorazepam 1 mg PO DAILY PRN mirtazapine 3.75 mg PO BEDTIME primidone 500 mg PO BEDTIME propranolol 40 mg PO DAILY tadalafil 5 mg PO DAILY Tobacco use date assessed: 12/23/23 Dental Screening Dental Screen Date: 12/23/23 Did you have a dental visit in the last 12 months?: Yes Did you have a dental problem in the last 6 months where you did not have access to dental care?: No Was dental information given to patient?: Patient has dentist HPI pe HPI Details 48-year-old male with GERD, irritable merlene wel syndrome generalized anxiety disorder an elevated fasting blood sugar last seen in 04/02/2023 and now for physical exam. Colonoscopy up-to-date 06/02/[address] Alcala. Review of the notes has seen Dermatology November 2023 sanjana. Last month also was in emergency room negative ultrasound of the abdomen having rib injury and tiredness with right upper quadrant pain. Note last August under urology for BPH and chronic prostatitis cystoscopy had some dysuria and ejaculation pain treated with Bactrim for 30 days. Peyronie's disease. Conservative management. complains of tiredness and weak PFSH Medical History (Updated 12/23/23 @ 09:35 by Brady Krishna MD) Chest pain Anxiety Bladder wall thickening Liver lesion Abnormal CT of the abdomen Abdominal pain Diarrhea RUQ abdominal pain Frequency of micturition Enlarged prostate Abdominal pain Low serum alkaline phosphatase Spastic pelvic floor syndrome Colon cancer screening Gallbladder polyp Flank pain Chest wall pain Panniculitis Rib fractures Fatty liver Irritable bowel syndrome GERD (gastroesophageal reflux disease) Vitamin D deficiency Surgical History Hx of colonoscopy History of esophagogastroduodenoscopy (EGD) H/O cystoscopy History of removal of skin mole Family History Father Lung cancer Parkinson disease Mother Alive and well Paternal Aunt Lung cancer Paternal Aunt No problems noted. Social History (Updated 12/23/23 @ 09:45 by Brady Krishna MD) Housing: House Are you a primary director critical care to a significant other at home: No Do you presently have visiting nurse or other home services: No Alcohol intake: current Alcohol intake frequency: a few times a week Comment: once Q 6 months 1 glass Patient Tobacco Use Status: Never used Tobacco Years Smoked: Vape pens THC e-Cigarette/Vaping Use: Never Used Second Hand Smoke Exposure: No Current occupational status: employed Cognitive needs: No Hearing needs: No Vision needs: Yes Questionnaire PHQ-9 Over the last 2 weeks, how often have you been bothered by any of the following problems? 1. Little interest or pleasure in doing things: not at all 2. Feeling down, depressed, or hopeless: not at all 3. Trouble falling or staying asleep, or sleeping too much: not at all 4. Feeling tired or having little energy: not at all 5. Poor appetite or overeating: not at all 6. Feeling bad about yourself - or that you are a failure or have let yourself or your family down: not at all 7. Trouble concentrating on things, such as reading the newspaper or watching television: not at all 8. Moving or speaking so slowly that other people could have noticed. Or the opposite - being so fidgety or restless that you have been moving around a lot more than usual: not at all 9. Thoughts that you would be better off or of hurting yourself in some way: not at all Total score: 0 Depression Screening Interpretation: Negative Depression Screening Done: Yes Source: Developed by Drs. Christo Dee, Rosa Baird, Cliff Morales and colleagues, with an educational caryn from [employer]. Thrive Questionnaire Date Thrive assessed: 12/23/23 I am a: Patient What is your living situation today?: I have a steady place to live Within the past 12 months, did the food you bought not last and you didn't have the money to get more?: Never true Within the past 12 months, did you worry whether your food would run out before you got money to buy more?: Never true Do you have trouble paying for medicines?: No Do you have trouble getting transportation to medical appointments?: No Do you have trouble paying your heating and electricity bill?: No Do you have trouble taking care of your child, family member or friend?: No Do you have trouble with day-to-day activities such as bathing, preparing meals, shopping, managing finances, etc.?: No Are you currently unemployed and looking for a job?: No Are you interested in more education?: No Currently or been in a relationship where the following occur: No concerns reported THRIVE Score: 0 AUDIT C Alcohol Use Questionnaire (AUDIT-C) 1. How often do you have a drink containing alcohol?: Monthly or less 2. How many drinks containing alcohol do you have on a typical day when you are drinking?: 1 or 2 3. How often do you have six or more drinks on one occasion?: Never Total Score: 1 FLOR-7 AMB Questionnaire FLOR-7 Date FLOR - 7 assessed: 12/23/23 Feeling nervous, anxious, or on edge: 0 = Not at all Not being able to stop or control worryin = Not at all Worrying too much about different things: 0 = Not at all Trouble relaxin = Not at all Being so restless that it is hard to sit still: 0 = Not at all Becoming easily annoyed or irritable: 0 = Not at all Feeling afraid as if something awful might happen: 0 = Not at all Total FLOR-7 score (0-4 normal; 5-9 mild; 10-14 moderate; 15-21 severe): 0 Source: Developed by Drs. Christo Dee, Rosa Baird, Cliff Morales and colleagues, with an educational caryn from [employer]. Review of Systems Const Denies poor appetite and Denies weakness Eyes Denies no additional complaints ENT Reports Normal hearing present, Denies dizziness, Denies nasal congestion, Denies tinnitus and Denies sore throat Card Denies chest pain, Denies syncope, Denies rapid heart rate and Denies dyspnea Resp Denies cough and Denies dyspnea GI Denies change in stool character, Reports constipation, Denies diarrhea, Denies nausea and Denies vomiting Denies dysuria and Denies urinary frequency Neuro Reports Normal hearing present, Denies confusion, Denies dizziness, Denies syncope and Denies weakness Psych Denies confusion Physical exam (Primary Care) Vital Signs: Last Vital Signs Pulse 57 12/23/23 09:05 BP 106/68 12/23/23 09:05 Pulse Ox 97 12/23/23 09:05 Oxygen Delivery Method Room Air 12/23/23 09:05 BMI result Body Mass Index 21.6 Tobacco/Smoking Status: Tobacco use Status Tobacco use date assessed 12/23/23 12/23/23 09:10 Patient Tobacco Use Status Never used Tobacco 12/23/23 09:10 e-Cigarette/Vaping Use Never Used 12/23/23 09:10 PHQ-9: PHQ-9 Score PHQ-9: Total score 0 12/23/23 09:10 Depression Screening Interpretation: Negative Thrive Assessment: Date of Thrive Assessment Date Thrive assessed 12/23/23 12/23/23 09:10 Currently or been in a relationship where the following occur: No concerns reported Const General: No confusion Orientation/consciousness: No confusion HENMT Head: Yes normocephalic Ears: external ears normal and TM's normal bilaterally Face and sinus: Yes normal facial exam Mouth: moist mucous membranes Throat: Yes tonsils normal Eyes Conjunctivae: conjunctivae normal Pupils: Equal, round and reactive pupils present and Pupil accommodation reflex normal Direct Ophthalmoscopy: normal light reflex Neck Neck: No lymphadenopathy Thyroid: Thyroid normal Chest Chest palpation & inspection: normal inspection of the chest Resp Effort & Inspection: normal respiratory effort and no audible wheezes Auscultation: clear to auscultation bilaterally, no crackles, no wheezes and lung sounds not diminished Cardio Rate: regular rate Rhythm: regular rhythm Peripheral pulses: radial pulses present and dorsalis pedis present GI Palpation (GI): no masses Auscultation: normal bowel sounds and normoactive bowel sounds Rectal Exam - Male: Yes deferred Skin General skin exam: no rashes or lesions noted Rashes: no rashes Neuro General: No confusion Cranial nerves: Yes Equal, round and reactive pupils present and Yes Normal hearing present Cognition (Neuro): normal cognition Gait exam (Neuro): Normal gait present Motor exam (neuro): 5/5 motor strength present throughout Deep tendon reflexes (DTR's): Right brachioradialis reflex intensity grade: 2+, Left brachioradialis reflex intensity grade: 2+, Right patellar reflex intensity grade: 2+ and Left patellar reflex intensity grade: 2+ Extrem General: No edema Assessment and Plan Assessment & Plan (1) Annual physical exam: Code(s): Z00.00 - Encounter for general adult medical examination without abnormal findings Plan: Patient is advised to eat healthy, keep well hydrated, keep active and have adequate sleep. (2) BPH (benign prostatic hyperplasia): Code(s): N40.0 - Benign prostatic hyperplasia without lower urinary tract symptoms Plan: Patient continues to follow-up with urology, watchful waiting (3) Generalized anxiety disorder: Comment: Declined any referral for counseling( September 2021) Code(s): F41.1 - Generalized anxiety disorder Plan: Stable on mirtazapine lorazepam. Coding Level of Care Code Est Pt Prev Care 40-64y(26948) Diagnoses Annual physical exam Z00.00 BPH (benign prostatic hyperplasia) N40.0 Generalized anxiety disorder F41.1
== END 2023-12-23 10:09 | disposition home or self-care (01) ==
PROVIDERS: PCP Internal Medicine; Visit Provider Internal Medicine
DX: Z00.00 Encounter for general adult medical examination without abnormal findings (principal); N40.0 Benign prostatic hyperplasia without lower urinary tract symptoms; F41.1 Generalized anxiety disorder
CPT/HCPCS: 99396

== ENCOUNTER 2024-05-26 07:51 | Outpatient (REF) | payer BC, SELFPAY ==
--- NOTE | ~2024-05-26 | FL_ITS ---
EXAMINATION: XR FLUOROSCOPY UPPER GI WITH AIR CLINICAL INFORMATION: Dysphagia. Reflux. COMPARISON: None TECHNIQUE: Fluoroscopic air contrast upper GI examination was performed utilizing standard techniques with thin and thick barium and effervescent granules. Numerous spot images were obtained. FINDINGS: Lateral cine images of the oropharynx and hypopharynx demonstrate normal swallow mechanism with normal epiglottic inversion and soft palate elevation. No tracheal penetration, glottic or subglottic aspiration identified. No nasopharyngeal reflux present. Hypopharyngeal structures appear normal without evidence of mass or diverticulum. There was no significant cricopharyngeal achalasia. Dual and single contrast images of the esophagus demonstrate a normal caliber and contour. There is felinization of the mid and lower esophageal mucosa. No strictures, masses, or ulcerations are seen., and mucosal pattern. Esophageal peristalsis was normal. No evidence of hiatus hernia identified. No significant gastroesophageal reflux was seen during the course of the examination and on reflux views. Dual contrast and single contrast images of the stomach demonstrated a normal contour. The gastric rugal folds have a thickened appearance, suggestive of gastritis. No masses or ulcerations are seen. Contrast freely passed into the gastric antrum and duodenal bulb without delay. Single and air-contrast images of the duodenal bulb demonstrate no abnormality. The duodenal sweep has a normal appearance, course, and mucosal fold appearance. The imaged proximal jejunum has a normal fold pattern and caliber. FLUOROSCOPY TIME: 3 minutes 56 seconds Number of Spot Images: 8 Number of Cine: 13 DOSE AREA PRODUCT: [id number] uGy-m2 (microgray-meter squared) FL/FL barium swallow with air IMPRESSION: 1. Felinization of the mid and lower esophageal mucosa. This is a benign finding associated with chronic gastroesophageal reflux. Although gastroesophageal reflux was not seen during this examination, suspect at least moderate gastroesophageal reflux. 2. Thickened appearance of the gastric rugal folds, suggestive of gastritis. This procedure was performed by Khanh Hinojosa PA-C, and supervised by Dr. Eastman Electronically signed by: Vik Eastman MD 05/26/2024 03:44 PM [facility]
== END 2024-05-26 07:52 | disposition home or self-care (01) ==
LOC: HO.XRAY 07:51
PROVIDERS: PCP Internal Medicine; Visit Provider Internal Medicine
DX: K21.9 Gastro-esophageal reflux disease without esophagitis (principal)
CPT/HCPCS: 74221

== ENCOUNTER → 2024-05-26 07:52 | Outpatient (BNV) | payer BC, SELFPAY | PROVIDERS: PCP Internal Medicine; Visit Provider Physician Assistant Surgical | DX: K21.9 Gastro-esophageal reflux disease without esophagitis (principal) | CPT/HCPCS: 74221 ==

== ENCOUNTER 2024-06-05 11:17 | Outpatient (AMB) | payer BC, SELFPAY ==
--- NOTE | 2024-06-05 11:17 | A.OFFVIS_ITS ---
Intake Visit Reasons: Discuss Imaging results / follow up Intake Note: Mario presents as a telehealth today for results for BA swallow. CC: Wants to talk to doctor about the symptoms that lead up to him having the BA swallow. HE states he was put on omeprazole and that helped but when he was taken off the symptoms all came back. Area Director Required: No Allergies No Known Allergies [No Known Allergies*] Allergy (Verified 06/05/24 11:17) HPI Comments Details: 47y.o M with PMH of FLOR, BPH, IBS-D who is here for follow up of abd pain. 07/28/22: Pt reports he has been having generalised abd pain and discomfort since Mar 2022. Was also seen in ER for this and had a CT abd/pelvis which showed gómez mesentery . Describes as vague pain which feels different than a routine stomachache or cramping. Waxes and wanes but regular and present most days of the week. Did not change with eating or passing BMs. BMs continue to fluctuated between constipation and diarrhea. Recently has had some improvement in his sx with celebrex, however at the same time, has also been eliminating gluten from his diet unsure which helped more. No new rash, vision changes, joint pains with this pain. Prior to this does have a background of IBS with diarrhea predominance for almost 25 years now. Thinks may be even back in high school. With IBS his symptoms were more of abd cramping with urgency to defecate and that would improve the cramping. Each episode would last 2-3 days. No fam hx of colon cancer or IBD. Workup: Normal white count, H&H in platelets. Normal renal function. Had low alkaline phosphatase x2. Imaging as noted previously. EGD/colonoscopy 06/12/2022: Semi pedunculated polyp 6 mm and descending colon. Internal hemorrhoids. Irregular Z-line. Normal stomach and duodenum. Path: Congested duodenal mucosa with preserved midline. Mild chronic inactive inflammation in stomach. Mild inflammation and GE junction. Tubular adenoma. 09/23/22: Discontinued celebrex on a daily basis. Now takes it PRN. Did not notice any worsening in abd discomfort on decreasing the celebrex. Labs reviewed with the pt which are all normal except Zinc which also explains the low ALP. Pt does bring up weight loss of almost 10lbs in the last couple of months. However this is the context of diet changes with elimination of gluten and dairy. 03/26/23: Coming in today for 6 monthly follow up. In the interim was seen by his PCP for atypical chest pain and underwork up which was all normal including stress test. Currently no new GI complaints. Has been doing well with dairy and gluten avoidance. Off celebrex completely and does not notice any return of sx. 11/19/23: Here for routine follow up. No GI sx. More recently had recurrence of burning RUQ pain. Almost seems like a rib pain. Went away with cerebrex. Was also seen in ER at [facility] for pain as well as ongoing fatigue. Underwent US RUQ which showed that known GB polyp is unchanged in size. 06/05/24: Follow up scheduled by patient after he had barium swallow. Televisit. Barium swallow 05/26/24 1. Felinization of the mid and lower esophageal mucosa. This is a benign finding associated with chronic gastroesophageal reflux. Although gastroesophageal reflux was not seen during this examination, suspect at least moderate gastroesophageal reflux. 2. Thickened appearance of the gastric rugal folds, suggestive of gastritis. Wonders if needs to have a repeat egd in light of these findings. Already started on omeprazole which is helping. Has intermittent sensation of food getting stuck in upper esophagus. Also reports persistent R sided rib pain which again not explained by gastritis/GERD as unrelated to food. [facility] Medical History Chest pain Anxiety Bladder wall thickening Liver lesion Abnormal CT of the abdomen Abdominal pain Diarrhea RUQ abdominal pain Frequency of micturition Enlarged prostate Abdominal pain Low serum alkaline phosphatase Spastic pelvic floor syndrome Colon cancer screening Gallbladder polyp Flank pain Chest wall pain Panniculitis Rib fractures Fatty liver Irritable bowel syndrome GERD (gastroesophageal reflux disease) Vitamin D deficiency Surgical History Hx of colonoscopy History of esophagogastroduodenoscopy (EGD) H/O cystoscopy History of removal of skin mole Family History Father Lung cancer Parkinson disease Mother Alive and well Paternal Aunt Lung cancer Paternal Aunt No problems noted. Social History Housing: House Are you a primary home health caregiver to a significant other at home: No Do you presently have visiting nurse or other home services: No Alcohol intake: current Alcohol intake frequency: a few times a week Comment: once Q 6 months 1 glass Patient Tobacco Use Status: Never used Tobacco Years Smoked: Vape pens THC e-Cigarette/Vaping Use: Never Used Second Hand Smoke Exposure: No Current occupational status: employed Cognitive needs: No Hearing needs: No Vision needs: Yes Review of Systems Const All systems reviewed & are unremarkable except as noted in HPI and below Physical Exam Vital Signs: Video visit: No acute distress No icterus noted No facial asymmetry Speaking in full sentences Telehealth Telehealth Telehealth Platform: [employer] Location of provider rendering services: practice address Location of patient: address on file Patient Identification confirmed using: Name, : Yes Telehealth method: video Patient verbally consented to treatment: Yes Patient verbally consented to billing insurance company: Yes Patient informed of any privacy concerns related to visit: Yes Minutes spent on Phone/Video with Pt.: 12 Assessment & Plan Assessment & Plan (1) Costochondral pain: Code(s): R07.89 - Other chest pain Category: Medical (2) Abnormal barium swallow: Code(s): R93.3 - Abnormal findings on diagnostic imaging of other parts of digestive tract Category: Medical (3) GERD (gastroesophageal reflux disease): Code(s): K21.9 - Gastro-esophageal reflux disease without esophagitis Category: Medical Qualifiers: Esophagitis presence: without esophagitis Qualified Code(s): K21.9 - Gastro-esophageal reflux disease without esophagitis (4) Dysphagia: Code(s): R13.10 - Dysphagia, unspecified Category: Medical Plan 1. GERD/gastritis. Will book for EGD sena for esophbageal bx to r/o EoE as felinization noted on barium swallow + pt's complaint of intermittent dysphagia. Last egd 2021 only GEJ bx were taken. Plan: - EGD to be booked - Pt to HOLD ppi x 7-10 days prior 2. R sided rib/chest pain Low suspicion for gastrointestinal origin of this pain. ? Lower rib syndrome such as slipping rib. Plan: - Referral to physiatry for eval. - Tylenol or short terms Celecoxib ok. Avoid nsaids. Follow up after egd Orders: Referrals Physiatry Referral R07.89 - Other chest pain Coding Level of Care Code Tele Est Pt Level 4 (26284) Diagnoses Costochondral pain R07.89 Abnormal barium swallow R93.3 Gastroesophageal reflux disease without esophagitis K21.9 Esophagitis presence: without esophagitis Dysphagia R13.10
== END 2024-06-05 13:56 | disposition home or self-care (01) ==
PROVIDERS: PCP Internal Medicine; Visit Provider Internal Medicine
DX: R07.89 Other chest pain (principal); R93.3 Abnormal findings on diagnostic imaging of other parts of digestive tract; K21.9 Gastro-esophageal reflux disease without esophagitis; R13.10 Dysphagia, unspecified
CPT/HCPCS: 99214

== ENCOUNTER 2024-06-29 08:14 | Outpatient (AMB) | payer BC, SELFPAY ==
[2024-06-29 08:22] VITALS: BP 124/72; PULSE 75; O2SAT 98; BMI 23.6
--- NOTE | 2024-06-29 08:22 | A.OFFPC_ITS ---
Vital Signs 06/29/24 08:22 Height 5 ft 11 in Weight 169 lb BMI 23.6 BP 124/72 Blood Pressure Location Lt brachial Position Sitting Pulse 75 Pulse Source Pulse Oximeter Pulse Oximetry (%) 98 Oxygen Delivery Method Room Air Intake Visit Reasons: 6 Month F/U Allergies No Known Allergies [No Known Allergies*] Allergy (Verified 06/29/24 08:22) Tobacco use date assessed: 06/29/24 Dental Screening Dental Screen Date: 06/29/24 Did you have a dental visit in the last 12 months?: Yes Did you have a dental problem in the last 6 months where you did not have access to dental care?: No Was dental information given to patient?: Patient has dentist HPI 6 Month F/U HPI Details The patient is a 49-year-old male presenting with chronic lower back pain. The patient reports previous evaluation of his spine and x-rays conducted, followed by being advised to undergo physical therapy. The insurance requirements necessitated physical therapy prior to considering an MRI. The patient also mentions seeing a chiropractor who provides temporary relief. The pain often results in work-related challenges due to physical therapy sessions? frequency, which conflicts with his job schedule. The patient also presents with a history of gastroesophageal reflux disease (GERD), contributing to dysphagia. He describes episodes of reflux leading to the sensation of food being stuck in his throat, affecting his voice after consuming certain meals, particularly in the morning. The patient has been taking omeprazole, which has eased the symptomatology. An upcoming endoscopic evaluation is planned to assess the esophageal stricture and potential Biswas?s esophagus diagnosed due to chronic reflux. The patient has a history of prostatitis for which antibiotics and tadalafil were prescribed. The urinary symptoms have improved, although the patient has not been regularly taking tadalafil. He reports anxiety, necessitating lorazepam and mirtazapine for anxiety and insomnia. Due to the long term of his previous mental health provider, ongoing management of his medication requires transition to his primary care. The patient indicates limited use of lorazepam, maintaining mental well-being while using mirtazapine for sleep. COUNTS INCLUDE 234 BEDS AT THE [facility] Medical History Chest pain Anxiety Bladder wall thickening Liver lesion Abnormal CT of the abdomen Abdominal pain Diarrhea RUQ abdominal pain Frequency of micturition Enlarged prostate Abdominal pain Low serum alkaline phosphatase Spastic pelvic floor syndrome Colon cancer screening Gallbladder polyp Flank pain Chest wall pain Panniculitis Rib fractures Fatty liver Irritable bowel syndrome GERD (gastroesophageal reflux disease) Vitamin D deficiency Surgical History Hx of colonoscopy History of esophagogastroduodenoscopy (EGD) H/O cystoscopy History of removal of skin mole Family History Father Lung cancer Parkinson disease Mother Alive and well Paternal Aunt Lung cancer Paternal Aunt No problems noted. Social History Housing: House Are you a primary ostomy care nurse to a significant other at home: No Do you presently have visiting nurse or other home services: No Alcohol intake: current Alcohol intake frequency: a few times a week Comment: once Q 6 months 1 glass Patient Tobacco Use Status: Never used Tobacco Tobacco use type: Cigarette Years Smoked: Vape pens THC e-Cigarette/Vaping Use: Never Used Second Hand Smoke Exposure: No Current occupational status: employed Cognitive needs: No Hearing needs: No Vision needs: Yes Questionnaire PHQ-9 Over the last 2 weeks, how often have you been bothered by any of the following problems? 1. Little interest or pleasure in doing things: not at all 2. Feeling down, depressed, or hopeless: not at all 3. Trouble falling or staying asleep, or sleeping too much: not at all 4. Feeling tired or having little energy: not at all 5. Poor appetite or overeating: not at all 6. Feeling bad about yourself - or that you are a failure or have let yourself or your family down: not at all 7. Trouble concentrating on things, such as reading the newspaper or watching television: not at all 8. Moving or speaking so slowly that other people could have noticed. Or the opposite - being so fidgety or restless that you have been moving around a lot more than usual: not at all 9. Thoughts that you would be better off or of hurting yourself in some way: not at all Total score: 0 Depression Screening Interpretation: Negative Depression Screening Done: Yes Source: Developed by Drs. Christo Dee, RosaCliff Gr and colleagues, with an educational caryn from [employer]. Thrive Questionnaire Date Thrive assessed: 06/29/24 I am a: Patient What is your living situation today?: I have a steady place to live Within the past 12 months, did the food you bought not last and you didn't have the money to get more?: Never true Within the past 12 months, did you worry whether your food would run out before you got money to buy more?: Never true Do you have trouble paying for medicines?: No Do you have trouble getting transportation to medical appointments?: No Do you have trouble paying your heating and electricity bill?: No Do you have trouble taking care of your child, family member or friend?: No Do you have trouble with day-to-day activities such as bathing, preparing meals, shopping, managing finances, etc.?: No Are you currently unemployed and looking for a job?: No Are you interested in more education?: No Currently or been in a relationship where the following occur: No concerns reported THRIVE Score: 0 AUDIT C Alcohol Use Questionnaire (AUDIT-C) 2. How many drinks containing alcohol do you have on a typical day when you are drinking?: 1 or 2 3. How often do you have six or more drinks on one occasion?: Never Total Score: 0 FLOR-7 AMB Questionnaire FLOR-7 Date FLOR - 7 assessed: 06/29/24 Feeling nervous, anxious, or on edge: 0 = Not at all Not being able to stop or control worryin = Not at all Worrying too much about different things: 0 = Not at all Trouble relaxin = Not at all Being so restless that it is hard to sit still: 0 = Not at all Becoming easily annoyed or irritable: 0 = Not at all Feeling afraid as if something awful might happen: 0 = Not at all Total FLOR-7 score (0-4 normal; 5-9 mild; 10-14 moderate; 15-21 severe): 0 Source: Developed by Drs. Christo Dee, Cliff Thomason and colleagues, with an educational caryn from [employer]. Physical exam (Primary Care) Vital Signs: Last Vital Signs Pulse 75 06/29/24 08:22 BP 124/72 06/29/24 08:22 Pulse Ox 98 06/29/24 08:22 Oxygen Delivery Method Room Air 06/29/24 08:22 BMI result Body Mass Index 23.6 Tobacco/Smoking Status: Tobacco use Status Tobacco use date assessed 06/29/24 06/29/24 08:33 Patient Tobacco Use Status Never used Tobacco 06/29/24 08:33 Tobacco use type Cigarette 06/29/24 08:33 e-Cigarette/Vaping Use Never Used 06/29/24 08:33 PHQ-9: PHQ-9 Score PHQ-9: Total score 0 06/29/24 08:33 Depression Screening Interpretation: Negative Thrive Assessment: Date of Thrive Assessment Date Thrive assessed 06/29/24 06/29/24 08:33 Currently or been in a relationship where the following occur: No concerns reported Const General: alert; No acute distress Eyes Conjunctivae: conjunctivae normal Resp Auscultation: clear to auscultation bilaterally Cardio Rate: regular rate Rhythm: regular rhythm GI Inspection: Yes normal to inspection Extrem General: Yes normal to inspection and No edema Coding Level of Care Code Est Pt Level 4 (61499) Complex EM visit Add On G2211 Diagnoses Dysphagia R13.10 Gastroesophageal reflux disease without esophagitis K21.9 Esophagitis presence: without esophagitis Generalized anxiety disorder F41.1 BPH (benign prostatic hyperplasia) N40.0 Essential tremor G25.0 Assessment & Plan Assessment & Plan (1) Dysphagia: Code(s): R13.10 - Dysphagia, unspecified Category: Medical Plan: Patient has seen gastroenterology and planned EGD (2) GERD (gastroesophageal reflux disease): Code(s): K21.9 - Gastro-esophageal reflux disease without esophagitis Category: Medical Qualifiers: Esophagitis presence: without esophagitis Qualified Code(s): K21.9 - Gastro-esophageal reflux disease without esophagitis Plan: Avoid the foods that causes that usually spicy foods, tomato products, juices, coffee, soda and foods that your sensitive to. After eating do not lie down, allow 3-4 hours before in lie down. And keep the head of bed above 30 degrees to avoid the acid from going up. On omeprazole (3) Generalized anxiety disorder: Comment: Declined any referral for counseling( September 2021) Code(s): F41.1 - Generalized anxiety disorder Category: Medical Plan: Continue with present medication (4) BPH (benign prostatic hyperplasia): Code(s): N40.0 - Benign prostatic hyperplasia without lower urinary tract symptoms Category: Medical Plan: Patient follows up with urology placed on Cialis has had treatment for prostatitis with resolution. (5) Essential tremor: Code(s): G25.0 - Essential tremor Category: Medical Plan: Continue with present medication Plan - For chronic lower back pain: Continued physical therapy is recommended per current treatment guidelines. Monitor pain levels and functionality, considering re-evaluation for MRI should therapy fail to alleviate symptoms. - For GERD and dysphagia: Continue omeprazole therapy with instructions to suspend usage before the endoscopy procedure. Proceed with scheduled endoscopic assessment to evaluate for esophageal stricture or Biswas?s esophagus. Post- procedure, assess findings and determine necessary interventions. - For prostatitis: Reinforce the importance of tadalafil administration as prescribed for urinary symptoms and erectile function. Monitor response and adjust as needed. - For anxiety disorder and insomnia: Continue mirtazapine for insomnia. Discuss frequency and quantity for lorazepam prescriptions, considering possible need for re-evaluation of anxiety management. Ensure clarity in prescribing practices and location for medication dispensing. - Preventative health: Plan for vaccination at 59 years old for herpes zoster, assessing risk based on past medical history and potential complications.
== END 2024-06-29 10:03 | disposition home or self-care (01) ==
PROVIDERS: PCP Internal Medicine; Visit Provider Internal Medicine
DX: R13.10 Dysphagia, unspecified (principal); K21.9 Gastro-esophageal reflux disease without esophagitis; F41.1 Generalized anxiety disorder; N40.0 Benign prostatic hyperplasia without lower urinary tract symptoms; G25.0 Essential tremor

== ENCOUNTER → 2024-06-29 08:14 | Outpatient (BNVA) | payer BC, SELFPAY | PROVIDERS: PCP Internal Medicine; Visit Provider Internal Medicine ==

== ENCOUNTER 2024-08-17 07:50 | Day surgery (SDC) | payer BC, SELFPAY ==
--- OUTSIDE RECORDS SUMMARY | 2024-08-08 17:20 | XMS_ITS | Patient Health Record ---
Author Organization [facility] [place] Address [address] [place] [address] Care Team Providers Care Desulfurizer Machine Name Role Phone TomiBrady Primary Care Provider Tam Stewart Unavailable [phone] Allergies No Known Allergies Reason For Referral No Information Medications Medication SIG (Take, Route, Fr equency, Duration) Notes Start Date End Date Status Primidone 250 MG 1 tablet Orally Once a day Active Propranolol HCl 20 MG 1 tablet Orally Once a day Active Topiramate Active busPIRone HCl 15 MG as directed Orally Active Immunizations Vaccine Route Administration Date Status Comme nts COVID-19 [employer] Jeff/Nestor Unknown 03/14/2021 Administered 1st 09/12/2020 Social History Tobacco Use: Social History Observation Description Date Details (start date - stop date) Never Smoker NA - NA Tobacco Use/Smoking Question Answer Notes Are you a: nonsmoker Alcohol Screen Question Answer Notes Did you have a drink containing alcohol in the p ast year? Yes Points 0 Interpretation Negative Tobacco use other than smoking: Question Answer Notes Are you an other tobacco user? No Problems Problem Type SNOMED Code ICD Code Onset Dates Problem Status W/U Status Risk Notes Problem Chronic ulcer of foot ([id number]) Non-pressure chronic ulcer of other part of left foot with fat layer exposed (L97.522) Active confirmed Plan Of Treatment Pending Test Test Name Order Date [id number] SKIN/TISSUE 02/23/2022 Insurance Providers Payer Name Payer Address Payer Phone Subscriber Number Group Number Insured Name Patient Relationship to Insured Coverage Start Date Coverage End Date [facility] [employer] [facility] [address] [place] [phone] [id number] Mairo Lynn Self - patient is the insured Medical (General) History Medical History History ICD Code Anxiety Fatty liver Reflux Irritable bowel syndrome Vitamin D deficiency Chicken pox Surgical History Surgery Date(Month/Year) Mole removal
[2024-08-15 13:24] VITALS: BMI 23.6
--- NOTE | 2024-08-16 08:45 | P.CONAN_ITS ---
Documented by User: Dorene Scruggs NP 08/16/24 08:45 HPI - Anesthesia Eval Consult details Narrative: 49yo M for Upper Endoscopy [facility] Active Problems Active Problems: All Active Problems Dysphagia (Acute) Abnormal barium swallow (Acute) Costochondral pain (Acute) Vision changes (Acute) Intermittent right upper quadrant abdominal pain (Acute) Chronic epididymitis (Acute) Elevated fasting blood sugar (Acute) Irritable bowel syndrome with diarrhea (Acute) Personal history of colonic polyps (Acute) Essential tremor (Acute) BPH (benign prostatic hyperplasia) (Acute) Mesenteric panniculitis (Acute) COVID-19 virus infection (Acute) Paronychia of great toe of left foot (Acute) Generalized anxiety disorder (Acute) Annual physical exam (Acute) Sciatic nerve pain (Acute) GERD (gastroesophageal reflux disease) (Acute) Past Medical History Medical History Essential tremor BPH (benign prostatic hyperplasia) IBS (irritable bowel syndrome) Spastic pelvic floor syndrome Low serum alkaline phosphatase Abdominal pain Enlarged prostate Diarrhea Liver lesion Bladder wall thickening Colon cancer screening RUQ abdominal pain Gallbladder polyp Frequency of micturition Panniculitis Rib fractures Fatty liver GERD (gastroesophageal reflux disease) Vitamin D deficiency Anxiety Family History Family History Father Lung cancer Parkinson disease Mother Alive and well Paternal Aunt Lung cancer Paternal Aunt No problems noted. Family history of problems with anesthesia: No Surgical History Surgical History Hx of colonoscopy History of esophagogastroduodenoscopy (EGD) H/O cystoscopy History of removal of skin mole History of Problems with Anesthesia: Unobtainable Social History Social History Housing: House Are you a primary healthcare network consultant to a significant other at home: No Do you presently have visiting nurse or other home services: No Alcohol intake: current Alcohol intake frequency: a few times a week Comment: once Q 6 months 1 glass Patient Tobacco Use Status: Never used Tobacco Tobacco use type: Cigarette Years Smoked: Vape pens THC e-Cigarette/Vaping Use: Never Used Second Hand Smoke Exposure: No Use of substances other than those prescribed or required for medical reasons: No Have you been hit, kicked, punched, or otherwise hurt by someone within the past year? If so, by whom?: No Are you DNR?: No Advance Directives: No Advance Directives Information Provided: Yes Recently lost weight without trying: No Current occupational status: employed Cognitive needs: No Hearing needs: No Vision needs: Yes Meds Allergies Allergy/AdvReac Type Severity Reaction Status Date / Time No Known Allergies Allergy Verified 06/29/24 08:22 [No Known Allergies*] Home Medications ?Medication ?Instructions ?Recorded ?Confirmed ?Last Taken ?Type lorazepam 1 mg tablet 1 mg PO DAILY PRN Anxiety 08/27/20 08/15/24 Unknown History primidone 250 mg tablet 500 mg PO BEDTIME 10/08/21 08/15/24 Unknown History mirtazapine 7.5 mg tablet 3.75 mg PO BEDTIME 12/18/22 08/15/24 Unknown History propranolol 40 mg tablet 40 mg PO DAILY 12/18/22 08/15/24 Unknown History tadalafil 5 mg tablet 5 mg PO DAILY 11/19/23 08/15/24 Unknown History Exam Height,Weight and Vital Signs: Height 5 ft 11 in Weight 76.657 kg Assessment and Plan Assessment Anesthesia Assessment: Chart Reviewed Final Anesthetic Review Family History of Problems with Anesthesia: No History of Problems with Anesthesia: Unobtainable Documented by User: Renetta Tse MD 08/17/24 08:54 PMFSH Past Medical History Medical History Essential tremor BPH (benign prostatic hyperplasia) IBS (irritable bowel syndrome) Spastic pelvic floor syndrome Low serum alkaline phosphatase Abdominal pain Enlarged prostate Diarrhea Liver lesion Bladder wall thickening Colon cancer screening RUQ abdominal pain Gallbladder polyp Frequency of micturition Panniculitis Rib fractures Fatty liver GERD (gastroesophageal reflux disease) Vitamin D deficiency Anxiety Family History Family History Father Lung cancer Parkinson disease Mother Alive and well Paternal Aunt Lung cancer Paternal Aunt No problems noted. Surgical History Surgical History Hx of colonoscopy History of esophagogastroduodenoscopy (EGD) H/O cystoscopy History of removal of skin mole Social History Social History Housing: House Are you a primary healthcare network consultant to a significant other at home: No Do you presently have visiting nurse or other home services: No Alcohol intake: current Alcohol intake frequency: a few times a week Comment: once Q 6 months 1 glass Patient Tobacco Use Status: Never used Tobacco Tobacco use type: Cigarette Years Smoked: Vape pens THC e-Cigarette/Vaping Use: Never Used Second Hand Smoke Exposure: No Use of substances other than those prescribed or required for medical reasons: No Have you been hit, kicked, punched, or otherwise hurt by someone within the past year? If so, by whom?: No Are you DNR?: No Advance Directives: No Advance Directives Information Provided: Yes Recently lost weight without trying: No Current occupational status: employed Cognitive needs: No Hearing needs: No Vision needs: Yes Meds Allergies Allergy/AdvReac Type Severity Reaction Status Date / Time No Known Allergies Allergy Verified 06/29/24 08:22 [No Known Allergies*] Home Medications ?Medication ?Instructions ?Recorded ?Confirmed ?Last Taken ?Type lorazepam 1 mg tablet 1 mg PO DAILY PRN Anxiety 08/27/20 08/15/24 Unknown History primidone 250 mg tablet 500 mg PO BEDTIME 10/08/21 08/15/24 Unknown History mirtazapine 7.5 mg tablet 3.75 mg PO BEDTIME 12/18/22 08/15/24 Unknown History propranolol 40 mg tablet 40 mg PO DAILY 12/18/22 08/15/24 Unknown History tadalafil 5 mg tablet 5 mg PO DAILY 11/19/23 08/15/24 Unknown History Exam Airway Mallampati Class: II TM Dist: >3cm Neck ROM: Full Heart: rrr Lungs: cta Assessment and Plan Assessment Anesthesia Assessment: Anesthesia Plan Discussed Final Anesthetic Review NPO: Yes ASA Class: III Final Preanesthetic Review: No Changes in Pt Med Stat, Meds/Allgs Chart Reviewed, Consent Obtained/Reviewed and Anes Risks/Benef Reviewed Patient Risk: Intermediate Procedure Risk: Low Anesthetic Plan Anesthetic Plan: MAC: Disposition: Standard PACU
[2024-08-17 08:28] VITALS: BP 115/76; PULSE 56; RESP 16; TEMP 36.7; O2SAT 97
[2024-08-17] MEDS: Lactated Ringers 1,000 ML 100 ML IVCONT (08:37)
--- NOTE | 2024-08-17 08:43 | MHC.SHP ---
Pre-Procedural Eval Section A - 24 Hr Update-Section A only Date of Service: 08/17/24 Section B - Complete if H&P > 30 days Chief Complaint: Gastritis, unspecified, without bleeding,dysphagia Details of Present Illness: Chest pain Anxiety Bladder wall thickening Liver lesion Abnormal CT of the abdomen Abdominal pain Diarrhea RUQ abdominal pain Frequency of micturition Enlarged prostate Abdominal pain Low serum alkaline phosphatase Spastic pelvic floor syndrome Colon cancer screening Gallbladder polyp Flank pain Chest wall pain Panniculitis Rib fractures Fatty liver Irritable bowel syndrome GERD (gastroesophageal reflux disease) Vitamin D deficiency Surgical History Hx of colonoscopy History of esophagogastroduodenoscopy (EGD) H/O cystoscopy History of removal of skin mole Present Medications: see Short Stay Collaborative assessment Allergies: Allergies Allergy/AdvReac Type Severity Reaction Status Date / Time No Known Allergies Allergy Verified 06/29/24 08:22 [No Known Allergies*] Review of Systems Review of Systems Comment: Ten point ROS negative Exam Exam Comment: Gen appear: No acute distress HEENT: no icterus Chest: No overt resp distress Abd: soft, nontender, nondistended Psych: Stable affect, answering questions appropriately Neuro: A/Ox3 noted to move all extremities spontaneously Ext: no peripheral edema Plan Diagnosis/Plan: Unchanged I have reviewed the history and physical and performed a pertinent physical examination on my patient. No changes have occurred unless specified. Time Spent With Patient Time: Total time managing care of this patient today ____ minutes.
--- NOTE | 2024-08-17 10:02 | P.OP_ITS ---
Operative Note Operative Note Date of Service: 08/17/24 Narrative: Procedure: Esophagogastroduodenoscopy Endoscopist: Tessy Dozier MD Indication: Dysphagia, LUQ pain Anesthesia Provider: Dr Nora Espinoza Anesthesia Type: MAC ?? EGD Procedure:?? The procedure, indications, preparation and potential complications were reviewed with the patient, who indicated understanding and gave written informed consent to proceed. A physical exam was performed. The endoscope was introduced through the mouth, and advanced to the second part of duodenum. The mucosa was carefully examined on slow withdrawal of the endoscope. The patient tolerated the procedure well. There were no immediate complications.? ? EGD Findings:? * Esophagus:? A small patch of heterotopic gastric mucosa noted in the upper esophagus. Erythema and erosions measuring < 5 mm at the GE junction. No narrowing or stricture noted. The Z line was at 38 cm. Middle and lower esophagus forceps biopsies were obtained to rule out eosinophilic esophagitis. * Stomach:? Erythema and scant heme noted in antrum. Retroflexion was performed in the cardia. Random cold forceps gastric biopsies were taken to rule out H Pylori infection. * Duodenum:? Normal mucosa was noted in the whole of the examined duodenum. Cold forceps biopsies were taken from duodenal bulb and second portion of the duodenum to rule out celiac sprue. ? EGD Impressions:? * Inlet patch * Grade A esophagitis (biopsy) * Gastritis (biopsy) * Normal duodenum (biopsy) ?? Recommendations:?? * Follow biopsy results. Our office will call or send a letter with results within 7-10 days. * Resume PPI. Take omeprazole 20 BID x 8 weeks and then once daily. * If H pylori +, patient will be prescribed eradication therapy followed by test of cure. * Avoid NSAIDs and smoking. Above has been reviewed with the patient. Relevant educational hand outs were provided at discharge. ?
[2024-08-17 10:07] VITALS: BP 90/52; PULSE 63; RESP 18; TEMP 36.4; O2SAT 100
[2024-08-17 10:22] VITALS: BP 89/53; PULSE 59; RESP 18; TEMP 36.3; O2SAT 98
[2024-08-17 10:29] VITALS: BP 102/63; PULSE 59; RESP 18; TEMP 36.3; O2SAT 98
== END 2024-08-17 13:43 | disposition home or self-care (01) ==
PROVIDERS: PCP Internal Medicine; Visit Provider Internal Medicine
PROC: 0DJ08ZZ Inspection of Upper Intestinal Tract, Via Natural or Artificial Opening Endoscopic (ICD-10-PCS; CPT 43235; principal; 2024-08-17 09:40)
DX: K29.70 Gastritis, unspecified, without bleeding (principal); K21.00 Gastro-esophageal reflux disease with esophagitis, without bleeding; Q39.8 Other congenital malformations of esophagus; R13.10 Dysphagia, unspecified; K58.9 Irritable bowel syndrome, unspecified; E55.9 Vitamin D deficiency, unspecified
CPT/HCPCS: 43239; 88305; 88313; 88342; J2003; J2250; J2704

== ENCOUNTER → 2024-08-17 07:50 | Outpatient (BNV) | payer BC, SELFPAY | PROVIDERS: PCP Internal Medicine; Visit Provider Internal Medicine | DX: R13.10 Dysphagia, unspecified (principal); K29.70 Gastritis, unspecified, without bleeding; K20.90 Esophagitis, unspecified without bleeding | CPT/HCPCS: 43239 ==

== ENCOUNTER 2024-09-04 11:27 | Outpatient (AMB) | payer BC, SELFPAY ==
--- NOTE | 2024-09-04 11:27 | A.OFFVIS_ITS ---
Intake Visit Reasons: S/P EGD; Dr. Dozier Intake Note: Mario presents as a follow up EGD. CC: States that he is just wanting results. States he is not having any concerns morie so questions. 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 07/28/22: Pt reports he has been having generalised abd pain and discomfort since Mar 2022. Was also seen in ER for this and had a CT abd/pelvis which showed gómez mesentery . Describes as vague pain which feels different than a routine stomachache or cramping. Waxes and wanes but regular and present most days of the week. Did not change with eating or passing BMs. BMs continue to fluctuated between constipation and diarrhea. Recently has had some improvement in his sx with celebrex, however at the same time, has also been eliminating gluten from his diet unsure which helped more. No new rash, vision changes, joint pains with this pain. Prior to this does have a background of IBS with diarrhea predominance for almost 25 years now. Thinks may be even back in high school. With IBS his symptoms were more of abd cramping with urgency to defecate and that would improve the cramping. Each episode would last 2-3 days. No fam hx of colon cancer or IBD. Workup: Normal white count, H&H in platelets. Normal renal function. Had low alkaline phosphatase x2. Imaging as noted previously. EGD/colonoscopy 06/12/2022: Semi pedunculated polyp 6 mm and descending colon. Internal hemorrhoids. Irregular Z-line. Normal stomach and duodenum. Path: Congested duodenal mucosa with preserved midline. Mild chronic inactive inflammation in stomach. Mild inflammation and GE junction. Tubular adenoma. 09/23/22: Discontinued celebrex on a daily basis. Now takes it PRN. Did not notice any worsening in abd discomfort on decreasing the celebrex. Labs reviewed with the pt which are all normal except Zinc which also explains the low ALP. Pt does bring up weight loss of almost 10lbs in the last couple of months. However this is the context of diet changes with elimination of gluten and dairy. 03/26/23: Coming in today for 6 monthly follow up. In the interim was seen by his PCP for atypical chest pain and underwork up which was all normal including stress test. Currently no new GI complaints. Has been doing well with dairy and gluten avoidance. Off celebrex completely and does not notice any return of sx. 11/19/23: Here for routine follow up. No GI sx. More recently had recurrence of burning RUQ pain. Almost seems like a rib pain. Went away with cerebrex. Was also seen in ER at [facility] for pain as well as ongoing fatigue. Underwent US RUQ which showed that known GB polyp is unchanged in size. 06/05/24: Follow up scheduled by patient after he had barium swallow. Televisit. Barium swallow 05/26/24 1. Felinization of the mid and lower esophageal mucosa. This is a benign finding associated with chronic gastroesophageal reflux. Although gastroesophageal reflux was not seen during this examination, suspect at least moderate gastroesophageal reflux. 2. Thickened appearance of the gastric rugal folds, suggestive of gastritis. Wonders if needs to have a repeat egd in light of these findings. Already started on omeprazole which is helping. Has intermittent sensation of food getting stuck in upper esophagus. Also reports persistent R sided rib pain which again not explained by gastritis/GERD as unrelated to food. 08/17/24: EGD * Inlet patch * Grade A esophagitis (biopsy) * Gastritis (biopsy) * Normal duodenum (biopsy) A. Duodenum, biopsy: Duodenal mucosa within normal limits. B. Stomach, random, biopsy: Antral-type and oxyntic mucosa within normal limits; no Helicobacter organisms seen. C. Esophagus, lower, biopsy: Squamous epithelium within normal limits; no inflammation seen. D. Esophagus, middle, biopsy: Squamous epithelium within normal limits; no inflammation seen. 09/04/24: Here as televisit. Reports improvement in chest pain and upper abd pain. Voice is hoarse and does not think resuming omeprazole has helped. Omeprazole is only being taken once daily. Reminded to take twice a day for 8 weeks. [facility] Medical History Essential tremor BPH (benign prostatic hyperplasia) IBS (irritable bowel syndrome) Spastic pelvic floor syndrome Low serum alkaline phosphatase Abdominal pain Enlarged prostate Diarrhea Liver lesion Bladder wall thickening Colon cancer screening RUQ abdominal pain Gallbladder polyp Frequency of micturition Panniculitis Rib fractures Fatty liver GERD (gastroesophageal reflux disease) Vitamin D deficiency Anxiety Surgical History Hx of colonoscopy History of esophagogastroduodenoscopy (EGD) H/O cystoscopy History of removal of skin mole Family History Father Lung cancer Parkinson disease Mother Alive and well Paternal Aunt Lung cancer Paternal Aunt No problems noted. Social History Housing: House Are you a primary pharmacy customer care specialist to a significant other at home: No Do you presently have visiting nurse or other home services: No Alcohol intake: current Alcohol intake frequency: a few times a week Comment: once Q 6 months 1 glass Patient Tobacco Use Status: Never used Tobacco Tobacco use type: Cigarette Years Smoked: Vape pens THC e-Cigarette/Vaping Use: Never Used Second Hand Smoke Exposure: No Current occupational status: employed Cognitive needs: No Hearing needs: No Vision needs: Yes Review of Systems Const All systems reviewed & are unremarkable except as noted in HPI and below Physical Exam Vital Signs: phone visit Telehealth Telehealth Telehealth Platform: Telephone Location of provider rendering services: practice address Location of patient: address on file Patient Identification confirmed using: Name, : Yes Telehealth method: voice only Patient verbally consented to billing insurance company: Yes Patient informed of any privacy concerns related to visit: Yes Minutes spent on Phone/Video with Pt.: 7 Assessment & Plan Assessment & Plan (1) Esophagitis: Code(s): K20.90 - Esophagitis, unspecified without bleeding Category: Medical (2) Gastritis: Code(s): K29.70 - Gastritis, unspecified, without bleeding Category: Medical Plan Reviewed egd results. Esophagitis and gastritis. Pls note esophagus biopsies were taken ABOVE the inflammed mucosa. Plan: - Omeprazole 20 BID x 8 weeks and then once daily - Pt has already had ENT eval for hoarse voice and was Dx with GERD (? LPR) - Follow up 2 months to review response Coding Level of Care Code Tele Est Pt Level 3 (16052) Diagnoses Esophagitis K20.90 Gastritis K29.70
== END 2024-09-04 12:36 | disposition home or self-care (01) ==
LOC: HO.HGI 11:27
PROVIDERS: PCP Internal Medicine; Visit Provider Internal Medicine
DX: K20.90 Esophagitis, unspecified without bleeding (principal); K29.70 Gastritis, unspecified, without bleeding
CPT/HCPCS: 99213

== ENCOUNTER 2024-12-14 11:14 | Outpatient (AMB) | payer BC, SELFPAY ==
--- NOTE | 2024-12-14 11:26 | A.OFFVIS_ITS ---
Intake Visit Reasons: S[employer]ING [employer]ER-RT lower chest/rib pain Intake Note: Mario is a 49 year old male who presents today as a new patient for Right lower chest and rib pain. Patient was referred by his PCP Tomi Abreu 06/05/24. Patient was also seen in Gastro on 06/05/24 by Jan Dozier who discussed chest/rib pain. Patient states that he has had this pain for several years now, in 2019 he did break some ribs on the right side. X rays of the right ribs were done at [facility] 2019. Patient stated that no numbness or tingling but he does have sharp pains at random. He noted that when the pain flairs up, it typically last for a few days at a time.Patient reports no physical therapy, no injections. Allergies No Known Allergies (No Known Allergies*) Allergy (Verified 12/14/24 11:28) Medication List - Last Reconciled 12/14/24 by Liz Garg MD celecoxib 200 mg PO DAILY PRN lorazepam 1 mg PO DAILY PRN mirtazapine 3.75 mg (1/2 x 7.5 mg) PO BEDTIME 30 days omeprazole 20 mg PO BID primidone 500 mg PO BEDTIME propranolol 40 mg PO DAILY tadalafil 5 mg PO DAILY HPI Comments Details: History of gastritis and esophagitis. Follows with GI. GI Dr. Dozier recommended referral to physiatry. No pain today, none since 6 months ago. When it does happen, entire right side/below the armpit line/below rib cage. Described as throbbing, wakes hip up. Celebrex helps 2 months. No rash, no color discoloration. Thought maybe after alcohol intake but then it has happened even without alcohol drinking. History of right rib fracture 2019. No neck pain that is associated. And neck pain would not shoot down to arm. Low back pain sometimes treated with chiropractor. Had chicken pox during childhood, had shingles at 20s maybe in the shoulder area, but does not remember which side. Denies numbness and weakness. [facility] Medical History Essential tremor BPH (benign prostatic hyperplasia) IBS (irritable bowel syndrome) Spastic pelvic floor syndrome Low serum alkaline phosphatase Abdominal pain Enlarged prostate Diarrhea Liver lesion Bladder wall thickening Colon cancer screening RUQ abdominal pain Gallbladder polyp Frequency of micturition Panniculitis Rib fractures Fatty liver GERD (gastroesophageal reflux disease) Vitamin D deficiency Anxiety Surgical History Hx of colonoscopy History of esophagogastroduodenoscopy (EGD) H/O cystoscopy History of removal of skin mole Family History Father Lung cancer Parkinson disease Mother Alive and well Paternal Aunt Lung cancer Paternal Aunt No problems noted. Social History Housing: House Are you a primary pet care technician to a significant other at home: No Do you presently have visiting nurse or other home services: No Alcohol intake: current Alcohol intake frequency: a few times a week Comment: once Q 6 months 1 glass Patient Tobacco Use Status: Never used Tobacco Tobacco use type: Cigarette Years Smoked: Vape pens THC e-Cigarette/Vaping Use: Never Used Second Hand Smoke Exposure: No Current occupational status: employed Cognitive needs: No Hearing needs: No Vision needs: Yes Review of Systems Const All systems reviewed & are unremarkable except as noted in HPI and below Physical Exam Constitutional: Patient appears to be in no acute distress, well nourished and well developed. Patient was appropriately conversant and oriented. Good historian. MSK: Inspection reveals appropriate head and neck positioning. Mild tenderness or at least indicated that he has had some tenderness over the xiphoid process in the past. Mild tenderness or at least he indicated that he had tenderness over costochondral junction to 11th and 10th lower ribs on the right. No pain with palpation over the neck musculature. No tenderness over any spinous processes. No scapular winging. No tenderness over trapezius or rhomboids. Cervical ROM was full. Spurling's sign negative. No allodynia on his chest. No skin changes. No temperature changes. Neurological: Mood appears normal, good affect, and appropriate for the circumstances. Neurologic examination of the upper and lower extremities was nonfocal with intact sensation, muscle stretch reflexes and without focal motor deficits. Gait is non-antalgic without loss of balance. Results Reviewed Results Reviewed: Ordering Physician: Rena Heart Date of Service: 11/10/23 Procedure(s): XR chest 2V Accession Number(s): [id number] cc: Rena Heart; Brady Krishna MD~ EXAMINATION: XR CHEST CLINICAL INFORMATION: Weight loss with palpitations COMPARISON: 01/25/2023 TECHNIQUE: 2 views of the chest were obtained. FINDINGS: No acute finding. The lung hatfield are felt to be grossly clear. There is no evidence for infiltrate. No effusion. The cardiac silhouette is within normal limits. The hilar regions do not appear pathologically enlarged. There is no effusion. XR/XR chest 2V IMPRESSION: No acute finding. I reviewed records from the following: PCP Dr. Krishna GI Dr. Dozier Assessment & Plan Assessment & Plan (1) Costochondritis: Code(s): M94.0 - Chondrocostal junction syndrome [Tietze] Category: Medical Plan Suspect he gets episodes of costochondritis. No pains for the last 6 months. Discussed what costochondritis is. Response to Celebrex. Can use topical lidocaine as well. If it becomes worse or more constant, we could refer him to pain management for injection. Assessment and plan discussed with patient, and patient was agreeable. All questions were answered thoroughly. Liz Garg MD, RAMY Board Certified, [place] Board of Physical Medicine and Rehabilitation (ABPMR) Board Certified, [place] Board of Electrodiagnostic Medicine (ABEM) Coding Level of Care Code New Pt Level 3 (11615) Diagnoses Costochondritis M94.0
--- OUTSIDE RECORDS SUMMARY | 2024-12-14 12:05 | XMS_ITS | Patient Health Record ---
Author [facility] [place] Address [address] [place] [address] Care Team Providers Care Whiting Can Worker Name Role Phone TomiBrady Primary Care Provider Tam Stewart Unavailable [phone] Allergies No Known Allergies Reason For Referral [...] Risk Notes Problem Chronic ulcer of foot ([id number]) Non-pressure chronic ulcer of other part of left foot with fat layer exposed (L97.522) Active confirmed Plan Of Treatment Pending Test Test Name Order Date [id number] SKIN/TISSUE 02/23/2022 Insurance Providers Payer Name Payer Address Payer Phone Subscriber Number Group Number Insured Name Patient Relationship to Insured Coverage Start Date Coverage End Date [facility] [employer] [facility] [address] [place] [address] [phone] [id number] Mario Lynn Self - patient is the insured Medical (General) History Medical History History ICD Code Anxiety Fatty liver Reflux Irritable bowel syndrome Vitamin D deficiency Chicken pox Surgical History Surgery Date(Month/Year) Mole removal
--- OUTSIDE RECORDS SUMMARY | 2024-12-14 12:05 | XMS_ITS | Data Portability ---
Author Organization JASPER Solorzano s [address] Address [address] [place] [address] Assessment No assessment recorded. Plan of Treatment Reminders Order Date Submit Date Provider Last Modified By Organization Details Last Modified Time Details Appointments None recorded. Lab None recorded. Referral None recorded. Procedures None recorded. Surgeries None recorded. Imaging None recorded. Medication Orders amoxicillin 875 mg tablet 2022 023 [id number], [address] [place], [place], [phone], 3 09:35:05 Patient TargetsNo targets recorded. Patient InstructionsNo instructions recorded. Reason for Referral None Reported. Problems Name Problem SNOMED Code Status Onset Date Resolution Date Notes Provider Name and Address Organization Details Recorded Time Essential tremor 087632076 Active 023 KALIA perez, PA - [facility] 3 17:30:01 Anxiety 91902883 Active 023 KALIA perez, PA - [facility] 3 17:30:09 Insomnia 649096313 Active 023 KALIA VILLA null, PA - [facility] 3 17:30:22 Problem Notes None recorded. Procedures Surgical History Date Name Laterality Status Provider Name and Address Organization Details Recorded Time 3 OC-UDS Send Out Template NON DOT completed WALTER Benito [facility] 08/31/2022 17:56:52 Imaging Results None recorded. Procedure Notes None recorded. Medical Equipment None Reported. Allergies No known drug allergies Medications Name Sig Start Date Stop Date Status Note LastModified by Organization Details LastModified Time celecoxib 200 mg capsule TAKE 1 CAPSULE BY MOUTH EVERY DAY active Not Available Not Available No t Available oxcarbazepi ne 300 mg tablet TAKE 1 TABLET (300 MG) BY MOUTH DAILY X7 DAYS THEN 1/2 TAB DAILY X 14 DAYS THEN D/C active Not Available Not Available No t Available ciprofloxac in 500 mg tablet TAKE 1 TABLET BY MOUTH TWICE A DAY FOR 7 DAYS 01/12 completed Not Available Not Available Not Available propranolol 40 mg tablet TAKE 1 TABLET BY MOUTH TWICE A DAY active Not Available Not Available No t Available amoxicillin 875 mg tablet Take 1 tablet every 12 hours by oral route for 10 days. 2022 active Not Available Not Available Not Avai lable primidone 250 mg tablet TAKE 3 TABLETS BY MOUTH EVERY EVENING active Not Available Not Available No t Available dicyclomine 20 mg tablet TAKE 1 TABLET BY MOUTH 4 TIMES A DAY NEEDED CRAMPING 01/12 completed Not Available Not Available Not Available cephalexin 500 mg capsule TAKE 1 CAPSULE BY MOUTH TWICE A DAY 01/12 completed Not Available Not Available Not Available lorazepam 1 mg tablet TAKE 1 TABLET BY MOUTH EVERY DAY NEEDED FOR ANXIETY active Not Available Not Available No t Available ibuprofen 600 mg tablet TAKE 1 TABLET BY MOUTH EVERY 8 HOURS NEEDED FOR PAIN active Not Available Not Available No t Available buspirone 15 mg tablet TAKE 1 TABLET BY MOUTH TWICE A DAY active Not Available Not Available No t Available topiramate 50 mg tablet TAKE 1 TABLET BY MOUTH AT BEDTIME active Not Available Not Available No t Available mirtazapine 7.5 mg tablet TAKE 1 TABLET BY MOUTH DAILY AT BEDTIME 01/12 completed Not Available Not Available Not Available solifenacin 5 mg tablet TAKE 1 TABLET BY MOUTH EVERY DAY 01/12 completed Not Available Not Available Not Available GaviLyte-G 236 gram-22.74 gram-6.74 gram-5.86 gram oral solution PLEASE SEE ATTACHED FOR DETAILED DIRECTION S 01/12 completed Not Available Not Available Not Available Readi-Cat 2 2 % (w/v) oral suspension DRINK DIRECTED 01/12 completed Not Available Not Available Not Available Vitals Date Recorded Body height Body mass index (BMI) Body weight Oxygen saturation Oxygen saturation in Arterial blood by Pulse oximetry Heart rate Respiratory rate Body temperature Systolic And Diastolic Provider Name and Address Organization Details Last Updated DateTime 3 177.8 cm 22.5 kg/m2 68290 g 99 % 99 % 60 /min 16 /min 97.6 [degF] 125/85 mm[Hg] KALIA DAISY PA - [facility] 3 17:32:25 Social History Question Answer Notes LastModified by Organizat ion Details LastModified Time Tobacco Smoking Status Never Smoker KALIA DAISY null, PA - [facility] 01/12/2023 17:30:52 Have You Recently Traveled Abroad? No Information not available 01/12/2023 Sex: Unknown Functional Status Question Answer Note LastModified by Organizat ion Details LastModified Time Do you use any illicit or recreational drugs? No Information not available 01/12/2023 Do you or have you ever used any other forms of tobacco or nicotine? No Information not available 01/12/2023 What is your level of alcohol consumption? Occasional Information not available 01/12/2023 Are you currently employed? No Information not available 01/12/2023 Mental Status None recorded. Family History Relationship Description Onset Age of this Age Resolved Age Notes LastModified by Organization Details LastModified Time Father Malignant neoplastic disease Not available 2022 17:30:37 Medical History No medical history recorded. Immunizations Vaccine Type Date Status Note Provider Nam e and Address Organization Details Recorded Time Influenza, split virus, quadrivalent, preservative 9 completed KALIA DAISY null, PA - [facility] 01/12/2023 17:28:24 Influenza, MDCK, quadrivalent, PF 0 completed KALIA DAISY null, PA - [facility] 01/12/2023 17:28:24 COVID-19, mRNA, LNP-S, PF, 30 mcg/0.3 mL dose 1 completed KALIA DAISY null, PA - [facility] 01/12/2023 17:28:25 COVID-19 vaccine, vector-nr, rS-Ad26, PF, 0.5 mL 1 completed KALIA DAISY null, PA - [facility] 01/12/2023 17:28:25 COVID-19, mRNA, LNP-S, bivalent, PF, 30 mcg/0.3 mL dose 3 completed KALIA DAISY null, PA - [facility] 01/12/2023 17:28:25 Tdap 0 completed KALIA DAISY null, PA - [facility] 01/12/2023 17:28:25 Influenza, split virus, quadrivalent, PF 1 completed KALIA DAISY null, PA - [facility] 01/12/2023 17:28:25 Influenza, split virus, quadrivalent, PF 2 completed KALIA DAISY null, PA - [facility] 01/12/2023 17:28:25 Past Encounters Encounter ID Performer Location Encounter Start Date Encounter Closed Date Diagnosis/Indication Diagnosis SNOMED-CT Code Diagnosis ICD10 Code Diagnosis Note [id number] [facility] [address] [place] [phone] 08/31/2022 16:45:38 08/31/2022 18:33:27 History and physical examination, occupation 387285606 Z02.1 [id number] [place] [address] [address] [place] [address] 01/12/2023 17:00:17 01/12/2023 18:11:29 Acute right otitis media 823161126 H66.91 - Use the medication s prescribed .- Decongesta nts if tolerated. - Recommend recheck if fever develops or no improvemen t in 5-7 dayDiscuss ed watch and wait x 24 hours and if no improvemen t to start Amoxicilli n Health Concerns Section Related Observation LastModified by Organization Detai ls LastModified Time None Recorded Concern Status LastModified by Organization Details LastModified Time None Recorded Advance Directives Directive None Recorded Payers Insurance Date Sequence Insurance Name Policy Number Policy Menendez Covered Member ID Menendez Member ID Guarantor Name 01/12/2023 1 [facility] [id number] [id number] Mario Lynn 08/31/2022 OC-ESCREEN Mario Lynn [id number] Mario Lynn Notes Date Note Type Note Provider Name and Address Organization Details Recorded Time 01/12/2023 text/html Ear Pain Brief HPIReported bypatient.Locatio n:pain radiates to jaw; right Onset/Timing:new onset Duration:occurs Quality:no itching; no discharge from the ears; no burning Severity:no fever; able to perform daily activities;interf eres with ability to sleep Context:no recent URI; no recent trauma; no recent ear infection; no recent swimming; no immunocompromise; no recent airplane travel; bruxism Associated Symptoms:no cough; no discharge from ear; no nasal congestion; no nasal discharge; no hearing loss; no tinnitus;sense of fullness/pressure ; no decreased hearing; no muffled hearing Grinds teeth every night and wondering if pain related to that Su Huston MD [address] [place], [place] [address]Angelique [place], [phone], PA - [facility] 01/13/2023 09:38:04
== END 2024-12-14 11:50 | disposition home or self-care (01) ==
LOC: HO.HOS 11:15
PROVIDERS: PCP Internal Medicine; Visit Provider Physical Medicine & Rehabilitation
DX: M94.0 Chondrocostal junction syndrome [Tietze] (principal)
CPT/HCPCS: 99203

== ENCOUNTER 2024-12-18 12:25 | Outpatient (AMB) | payer BC, SELFPAY ==
--- NOTE | 2024-12-18 12:25 | A.OFFVIS_ITS ---
Intake Visit Reasons: GERD f/u Intake Note: Mario presents as a telehealth for GERD. CC: States that he is not having any concerns. 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 07/28/22: Pt reports he has been having generalised abd pain and discomfort since Mar 2022. Was also seen in ER for this and had a CT abd/pelvis which showed gómez mesentery . Describes as vague pain which feels different than a routine stomachache or cramping. Waxes and wanes but regular and present most days of the week. Did not change with eating or passing BMs. BMs continue to fluctuated between constipation and diarrhea. Recently has had some improvement in his sx with celebrex, however at the same time, has also been eliminating gluten from his diet unsure which helped more. No new rash, vision changes, joint pains with this pain. Prior to this does have a background of IBS with diarrhea predominance for almost 25 years now. Thinks may be even back in high school. With IBS his symptoms were more of abd cramping with urgency to defecate and that would improve the cramping. Each episode would last 2-3 days. No fam hx of colon cancer or IBD. Workup: Normal white count, H&H in platelets. Normal renal function. Had low alkaline phosphatase x2. Imaging as noted previously. EGD/colonoscopy 06/12/2022: Semi pedunculated polyp 6 mm and descending colon. Internal hemorrhoids. Irregular Z-line. Normal stomach and duodenum. Path: Congested duodenal mucosa with preserved midline. Mild chronic inactive inflammation in stomach. Mild inflammation and GE junction. Tubular adenoma. 09/23/22: Discontinued celebrex on a daily basis. Now takes it PRN. Did not notice any worsening in abd discomfort on decreasing the celebrex. Labs reviewed with the pt which are all normal except Zinc which also explains the low ALP. Pt does bring up weight loss of almost 10lbs in the last couple of months. However this is the context of diet changes with elimination of gluten and dairy. 03/26/23: Coming in today for 6 monthly follow up. In the interim was seen by his PCP for atypical chest pain and underwork up which was all normal including stress test. Currently no new GI complaints. Has been doing well with dairy and gluten avoidance. Off celebrex completely and does not notice any return of sx. 11/19/23: Here for routine follow up. No GI sx. More recently had recurrence of burning RUQ pain. Almost seems like a rib pain. Went away with cerebrex. Was also seen in ER at [facility] for pain as well as ongoing fatigue. Underwent US RUQ which showed that known GB polyp is unchanged in size. 06/05/24: Follow up scheduled by patient after he had barium swallow. Televisit. Barium swallow 05/26/24 1. Felinization of the mid and lower esophageal mucosa. This is a benign finding associated with chronic gastroesophageal reflux. Although gastroesophageal reflux was not seen during this examination, suspect at least moderate gastroesophageal reflux. 2. Thickened appearance of the gastric rugal folds, suggestive of gastritis. Wonders if needs to have a repeat egd in light of these findings. Already started on omeprazole which is helping. Has intermittent sensation of food getting stuck in upper esophagus. Also reports persistent R sided rib pain which again not explained by gastritis/GERD as unrelated to food. 08/17/24: EGD * Inlet patch * Grade A esophagitis (biopsy) * Gastritis (biopsy) * Normal duodenum (biopsy) A. Duodenum, biopsy: Duodenal mucosa within normal limits. B. Stomach, random, biopsy: Antral-type and oxyntic mucosa within normal limits; no Helicobacter organisms seen. C. Esophagus, lower, biopsy: Squamous epithelium within normal limits; no inflammation seen. D. Esophagus, middle, biopsy: Squamous epithelium within normal limits; no inflammation seen. 09/04/24: Here as televisit. Reports improvement in chest pain and upper abd pain. Voice is hoarse and does not think resuming omeprazole has helped. Omeprazole is only being taken once daily. Reminded to take twice a day for 8 weeks. 12/18/24: Here for follow up. Routine, generally feels well. To recall, patient was experiencing a strange sensation in the neck and chest, which led to a diagnostic upper endoscopy revealing esophagitis and gastritis. Since starting omeprazole therapy, the symptoms, including the neck sensation and hoarse voice, have significantly subsided. He is currently taking omeprazole 20 once daily. [facility] Medical History Essential tremor BPH (benign prostatic hyperplasia) IBS (irritable bowel syndrome) Spastic pelvic floor syndrome Low serum alkaline phosphatase Abdominal pain Enlarged prostate Diarrhea Liver lesion Bladder wall thickening Colon cancer screening RUQ abdominal pain Gallbladder polyp Frequency of micturition Panniculitis Rib fractures Fatty liver GERD (gastroesophageal reflux disease) Vitamin D deficiency Anxiety Surgical History Hx of colonoscopy History of esophagogastroduodenoscopy (EGD) H/O cystoscopy History of removal of skin mole Family History Father Lung cancer Parkinson disease Mother Alive and well Paternal Aunt Lung cancer Paternal Aunt No problems noted. Social History Housing: House Are you a primary cna caregiver to a significant other at home: No Do you presently have visiting nurse or other home services: No Alcohol intake: current Alcohol intake frequency: a few times a week Comment: once Q 6 months 1 glass Patient Tobacco Use Status: Never used Tobacco Tobacco use type: Cigarette Years Smoked: Vape pens THC e-Cigarette/Vaping Use: Never Used Second Hand Smoke Exposure: No Current occupational status: employed Cognitive needs: No Hearing needs: No Vision needs: Yes Review of Systems Const All systems reviewed & are unremarkable except as noted in HPI and below Physical Exam Vital Signs: Video visit: No acute distress No icterus noted No facial asymmetry Speaking in full sentences Telehealth Telehealth Telehealth Platform: [employer]ondate Location of provider rendering services: practice address Location of patient: address on file Patient Identification confirmed using: Name, : Yes Telehealth method: video Patient verbally consented to treatment: Yes Patient verbally consented to billing insurance company: Yes Patient informed of any privacy concerns related to visit: Yes Assessment & Plan Assessment & Plan (1) Esophagitis: Code(s): K20.90 - Esophagitis, unspecified without bleeding Category: Medical (2) Gastritis: Code(s): K29.70 - Gastritis, unspecified, without bleeding Category: Medical Plan Esophagitis and gastritis. Recently switched to omeprazole 20 once daily. Plan: - continue omeprazole 20 once daily for 90 days then reduce to lowest effective dose For polyp surveillance, next colo due 2028. Follow up 1 year Medications: Changed From omeprazole 20 mg PO BID 60 caps 2RF To omeprazole 20 mg PO DAILY 90 caps 0RF Coding Level of Care Code Tele Est Pt Level 4 (12540) Diagnoses Esophagitis K20.90 Gastritis K29.70
--- OUTSIDE RECORDS SUMMARY | 2024-12-18 13:04 | XMS_ITS | Patient Health Record ---
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 Name Role Phone TomiBrady Primary Care Provider Tam Stewart Unavailable [phone] Allergies No Known Allergies Reason For Referral [...] Risk Notes Problem Chronic ulcer of foot (025371627) Non-pressure chronic ulcer of other part of left foot with fat layer exposed (L97.522) Active confirmed Plan Of Treatment Pending Test Test Name Order Date [id number] SKIN/TISSUE 02/23/2022 Insurance Providers Payer Name Payer Address Payer Phone Subscriber Number Group Number Insured Name Patient Relationship to Insured Coverage Start Date Coverage End Date [facility] [facility] [address] [place] [address] [phone] [id number] Mario Lynn Self - patient is the insured Medical (General) History Medical History History ICD Code Anxiety Fatty liver Reflux Irritable bowel syndrome Vitamin D deficiency Chicken pox Surgical History Surgery Date(Month/Year) Mole removal
--- OUTSIDE RECORDS SUMMARY | 2024-12-18 13:04 | XMS_ITS | Data Portability ---
Author Organization JASPER Solorzano s [address] Address [address] [place] [address] Assessment No assessment recorded. Plan of Treatment Reminders Order Date Submit Date Provider Last Modified By Organization Details Last Modified Time Details Appointments None recorded. Lab None recorded. Referral None recorded. Procedures None recorded. Surgeries None recorded. Imaging None recorded. Medication Orders amoxicillin 875 mg tablet 2022 023 [id number], [address], [place], [phone], 3 09:35:05 Patient TargetsNo targets recorded. Patient InstructionsNo instructions recorded. Reason for Referral None Reported. Problems Name Problem SNOMED Code Status Onset Date Resolution Date Notes Provider Name and Address Organization Details Recorded Time Essential tremor 263677707 Active 023 KALIA perez, PA - [facility] 3 17:30:01 Anxiety 75493923 Active 023 KALIA perez, PA - [facility] 3 17:30:09 Insomnia 281387323 Active 023 KALIA VILLA null, PA - [facility] 3 17:30:22 Problem Notes None recorded. Procedures Surgical History Date Name Laterality Status Provider Name and Address Organization Details Recorded Time 3 OC-UDS Send Out Template NON DOT completed WALTER Beniot [facility] 08/31/2022 17:56:52 Imaging Results None [...] Updated DateTime 3 177.8 cm 22.5 kg/m2 47873 g 99 % 99 % 60 /min [...] SNOMED-CT Code Diagnosis ICD10 Code Diagnosis Note [id number] [facility] [address] [place] [phone] 08/31/2022 16:45:38 08/31/2022 18:33:27 History and physical examination, occupation 982398201 Z02.1 [id number] [place] [address] [address] [place] [address] 01/12/2023 17:00:17 01/12/2023 18:11:29 Acute right otitis media 252961126 H66.91 - Use the medication s prescribed [...] Menendez Member ID Guarantor Name 01/12/2023 1 [facility] [id number] [id number] Mario Lynn 08/31/2022 OC-ESCREEN Mario Lynn [id number] Mario Lynn Notes Date Note Type [...] pain related to that Su Huston MD [address] [place], [place] [address]Angelique [place], [address], PA - [facility] 01/13/2023 09:38:04
== END 2024-12-18 14:51 | disposition home or self-care (01) ==
LOC: HO.HGI 12:25
PROVIDERS: PCP Internal Medicine; Visit Provider Internal Medicine
DX: K20.90 Esophagitis, unspecified without bleeding (principal); K29.70 Gastritis, unspecified, without bleeding
CPT/HCPCS: 99214

== ENCOUNTER 2025-01-05 08:46 | Outpatient (AMB) | payer BC, SELFPAY ==
--- NOTE | 2025-01-05 08:50 | A.OFFPC_ITS ---
Vital Signs 01/05/25 08:51 Height 5 ft 11 in Weight 174 lb 2 oz BMI 24.3 BP 110/70 Blood Pressure Location Lt brachial Position Sitting Pulse 57 Pulse Source Pulse Oximeter Temp 97.3 F Temp Source Temporal Artery Scan Pulse Oximetry (%) 98 Oxygen Delivery Method Room Air Intake Visit Reasons: ANNUAL Intake Note: Patient is here today for a physical. Individual Pension Adviser Required: No Fly Worker: Not Required per policy Accompanied by: Self / Same As Patient Allergies No Known Allergies (No Known Allergies*) Allergy (Verified 01/05/25 08:51) Medication List - Last Reconciled 01/05/25 by Brady Krishna MD celecoxib 200 mg PO DAILY PRN lorazepam 1 mg PO DAILY PRN mirtazapine 3.75 mg (1/2 x 7.5 mg) PO BEDTIME 30 days omeprazole 20 mg PO DAILY primidone 500 mg PO BEDTIME propranolol 40 mg PO DAILY tadalafil 5 mg PO DAILY Tobacco use date assessed: 01/05/25 Dental Screening Dental Screen Date: 06/29/24 [facility] Medical History (Updated 01/05/25 @ 09:05 by Brady Krishna MD) Dysphagia Abnormal barium swallow Essential tremor BPH (benign prostatic hyperplasia) IBS (irritable bowel syndrome) Spastic pelvic floor syndrome Low serum alkaline phosphatase Abdominal pain Enlarged prostate Diarrhea Liver lesion Bladder wall thickening Colon cancer screening RUQ abdominal pain Gallbladder polyp Frequency of micturition Panniculitis Rib fractures Fatty liver GERD (gastroesophageal reflux disease) Vitamin D deficiency Anxiety Surgical History Hx of colonoscopy History of esophagogastroduodenoscopy (EGD) H/O cystoscopy History of removal of skin mole Family History (Updated 01/05/25 @ 09:13 by Brady Krishna MD) Father Lung cancer Parkinson disease Mother Alive and well Paternal Aunt Lung cancer Paternal Aunt No problems noted. Paternal Uncle Lung cancer Social History (Updated 01/05/25 @ 09:14 by Brady Krishna MD) Housing: House Are you a primary critical care transport nurse to a significant other at home: No Do you presently have visiting nurse or other home services: No Alcohol intake: current Alcohol intake frequency: a few times a week Comment: once Q 6 months 1 glass, weekends 3 days 2-3 drinks Patient Tobacco Use Status: Never used Tobacco Tobacco use type: Cigarette Years Smoked: Vape pens THC stopped (12/2024) e-Cigarette/Vaping Use: Never Used Second Hand Smoke Exposure: No service: No Current occupational status: employed Cognitive needs: No Hearing needs: No Vision needs: Yes Questionnaire PHQ-9 Over the last 2 weeks, how often have you been bothered by any of the following problems? 1. Little interest or pleasure in doing things: not at all 2. Feeling down, depressed, or hopeless: not at all 3. Trouble falling or staying asleep, or sleeping too much: not at all 4. Feeling tired or having little energy: not at all 5. Poor appetite or overeating: not at all 6. Feeling bad about yourself - or that you are a failure or have let yourself or your family down: not at all 7. Trouble concentrating on things, such as reading the newspaper or watching television: not at all 8. Moving or speaking so slowly that other people could have noticed. Or the opposite - being so fidgety or restless that you have been moving around a lot more than usual: not at all 9. Thoughts that you would be better off or of hurting yourself in some way: not at all Total score: 0 Depression Screening Interpretation: Negative Depression Screening Done: Yes Source: Developed by Drs. Christo Dee, Rosa Baird, Cliff Morales and colleagues, with an educational caryn from [employer]. Thrive Questionnaire Date Thrive assessed: 06/29/24 I am a: Patient What is your living situation today?: I have a steady place to live Within the past 12 months, did the food you bought not last and you didn't have the money to get more?: Never true Within the past 12 months, did you worry whether your food would run out before you got money to buy more?: Never true Do you have trouble paying for medicines?: No Do you have trouble getting transportation to medical appointments?: No Do you have trouble paying your heating and electricity bill?: No Do you have trouble taking care of your child, family member or friend?: No Do you have trouble with day-to-day activities such as bathing, preparing meals, shopping, managing finances, etc.?: No Are you currently unemployed and looking for a job?: No Are you interested in more education?: No Please select the resources that you would like help with: None Currently or been in a relationship where the following occur: No concerns reported THRIVE Score: 0 AUDIT C Alcohol Use Questionnaire (AUDIT-C) 1. How often do you have a drink containing alcohol?: 2-3 times a week Total Score: 3 FLOR-7 AMB Questionnaire FLOR-7 Date FLOR - 7 assessed: 01/05/25 Feeling nervous, anxious, or on edge: 0 = Not at all Not being able to stop or control worryin = Not at all Worrying too much about different things: 0 = Not at all Trouble relaxin = Not at all Being so restless that it is hard to sit still: 0 = Not at all Becoming easily annoyed or irritable: 0 = Not at all Feeling afraid as if something awful might happen: 0 = Not at all Total FLOR-7 score (0-4 normal; 5-9 mild; 10-14 moderate; 15-21 severe): 0 Source: Developed by Drs. Christo Dee, Rosa Baird, Cliff Morales and colleagues, with an educational caryn from [employer]. Review of Systems Const Denies poor appetite and Denies weakness Eyes Denies no additional complaints ENT Reports Normal hearing present, Denies dizziness, Denies nasal congestion, Denies tinnitus and Denies sore throat Card Denies chest pain, Denies syncope, Denies rapid heart rate and Denies dyspnea Resp Denies cough and Denies dyspnea GI Denies change in stool character, Reports constipation, Denies diarrhea, Denies nausea and Denies vomiting Denies dysuria and Denies urinary frequency Neuro Reports Normal hearing present, Denies confusion, Denies dizziness, Denies syncope and Denies weakness Psych Denies confusion Physical exam (Primary Care) Vital Signs: Last Vital Signs Temp 97.3 F 01/05/25 08:51 Pulse 57 01/05/25 08:51 BP 110/70 01/05/25 08:51 Pulse Ox 98 01/05/25 08:51 Oxygen Delivery Method Room Air 01/05/25 08:51 BMI result Body Mass Index 24.3 Tobacco/Smoking Status: Tobacco use Status Tobacco use date assessed 01/05/25 01/05/25 08:57 Patient Tobacco Use Status Never used Tobacco 01/05/25 09:14 Tobacco use type Cigarette 01/05/25 09:14 e-Cigarette/Vaping Use Never Used 01/05/25 09:14 PHQ-9: PHQ-9 Score PHQ-9: Total score 0 01/05/25 09:06 Depression Screening Interpretation: Negative Thrive Assessment: Date of Thrive Assessment Date Thrive assessed 06/29/24 01/05/25 08:57 Currently or been in a relationship where the following occur: No concerns reported Const General: No confusion Orientation/consciousness: No confusion HENMT Head: Yes normocephalic Ears: external ears normal and TM's normal bilaterally Face and sinus: Yes normal facial exam Mouth: moist mucous membranes Throat: Yes tonsils normal Eyes Conjunctivae: conjunctivae normal Pupils: Equal, round and reactive pupils present and Pupil accommodation reflex normal Direct Ophthalmoscopy: normal light reflex Neck Neck: No lymphadenopathy Thyroid: Thyroid normal Chest Chest palpation & inspection: normal inspection of the chest Resp Effort & Inspection: normal respiratory effort and no audible wheezes Auscultation: clear to auscultation bilaterally, no crackles, no wheezes and lung sounds not diminished Cardio Rate: regular rate Rhythm: regular rhythm Peripheral pulses: radial pulses present and dorsalis pedis present GI Other: guaiac negative, prostate mild enlarged Palpation (GI): no masses Auscultation: normal bowel sounds and normoactive bowel sounds Male General Exam: Yes normal external exam Skin General skin exam: no rashes or lesions noted Rashes: no rashes Neuro General: No confusion Cranial nerves: Yes Equal, round and reactive pupils present and Yes Normal hearing present Cognition (Neuro): normal cognition Gait exam (Neuro): Normal gait present Motor exam (neuro): 5/5 motor strength present throughout Deep tendon reflexes (DTR's): Right brachioradialis reflex intensity grade: 2+, Left brachioradialis reflex intensity grade: 2+, Right patellar reflex intensity grade: 2+ and Left patellar reflex intensity grade: 2+ Extrem General: No edema Coding Level of Care Code Est Pt Prev Care 40-64y(44644) Diagnoses Annual physical exam Z00.00 BPH (benign prostatic hyperplasia) N40.0 Irritable bowel syndrome with diarrhea K58.0 Gastritis K29.70 Generalized anxiety disorder F41.1 Assessment & Plan Assessment & Plan (1) Annual physical exam: Code(s): Z00.00 - Encounter for general adult medical examination without abnormal findings Category: Medical Plan: Patient is advised to eat healthy, keep well hydrated, keep active and have adequate sleep. (2) BPH (benign prostatic hyperplasia): Code(s): N40.0 - Benign prostatic hyperplasia without lower urinary tract symptoms Category: Medical Plan: On tadalafil (3) Irritable bowel syndrome with diarrhea: Code(s): K58.0 - Irritable bowel syndrome with diarrhea Category: Medical Plan: Patient follows up with Gastroenterology (4) Gastritis: Code(s): K29.70 - Gastritis, unspecified, without bleeding Category: Medical Plan: On omeprazole , Avoid the foods that causes that usually spicy foods, tomato products, juices, coffee, soda and foods that your sensitive to. After eating do not lie down, allow 3-4 hours before in lie down. And keep the head of bed above 30 degrees to avoid the acid from going up. (5) Generalized anxiety disorder: Comment: Declined any referral for counseling( September 2021) Code(s): F41.1 - Generalized anxiety disorder Category: Medical Plan: Continue with mirtazapine and lorazepam as needed Plan History of Present Illness The patient is a 49-year-old male presenting for a physical examination and management of chronic conditions. The patient has a history of Gastroesophageal Reflux Disease (GERD), which has been managed with omeprazole, leading to an improvement in symptoms such as esophageal and stomach inflammation. The patient reports adherence to dietary modifications, avoiding spicy and tomato-based foods, which has contributed to symptom control. The patient has been diagnosed with Benign Prostatic Hyperplasia (BPH) and has experienced recurrent prostatitis, currently managed with Bactrim. The patient has been advised to continue tadalafil for BPH management, although he has not been taking it regularly. The patient has a history of Generalized Anxiety Disorder, for which he takes mirtazapine at bedtime and lorazepam as needed. He reports that the medications help manage his symptoms effectively. The patient has a history of Irritable Bowel Syndrome, which has improved with dietary changes, specifically a gluten-free diet. He reports regular bowel movements and no longer experiences irregularity. The patient has been diagnosed with chondrochondritis, for which he uses Celebrex and topical lidocaine as needed for pain management. The patient has a dermatological history including lentigo, seborrheic keratosis, and Thebes's disease, managed with topical steroids and moisturizers. The patient has a family history of lung cancer on his father's side, with both his father and uncle affected, despite neither having smoked. He denies any other family history of cancer or heart disease. Health Maintenance - Colonoscopy scheduled for 2028 as part of preventative care. - Shingles vaccination discussed, patient has received the first dose. - COVID-19 vaccination discussed, advised to consider booster in the fall. Social History - Alcohol consumption: Drinks two to three drinks per day on weekends. - Smoking: No history of cigarette smoking, previously used vape pens but has stopped. - Exercise: Attends gym five days a week, reports gaining muscle mass. - Diet: Follows a gluten-free diet, avoids spicy and tomato-based foods. Review of Systems - Gastrointestinal: Reports improvement in swallowing, denies nausea, vomiting, or abdominal pain. - Respiratory: Denies shortness of breath or chest pain. - Neurological: Denies dizziness or passing out. - Dermatological: Denies rashes or unusual lumps. Physical Exam General: Cooperative, healthy appearing, comfortable, no acute distress and well developed Orientation: Patient oriented x3 Limitations: No limitations Head: Normal to inspection Ears: Hearing grossly normal bilaterally Nose: Normal external nose present Face and sinus: Normal facial exam Eyes: Appearance normal, both eyes and all related structures Neck: Normal visual inspection and Yes full ROM Respiratory: Normal respiratory effort and able to speak in complete sentences. Clear to auscultation bilaterally Cardiovascular: Regular rate and rhythm. Normal S1 and S2 GI: Normal to inspection. Soft to palpation and nontender Skin: No rashes or lesions noted Neuro: Patient oriented x3 Extremities: Normal to inspection Results - Labs: Normal blood count with mild leukopenia, normal electrolytes, renal function, and liver function tests. - Cholesterol: LDL of 108 mg/dL as of 2022. - Thyroid: Normal thyroid function tests. - Urinalysis: Negative for abnormalities. - Viral Testing: Negative results. Plan The patient will continue with omeprazole for management of Gastroesophageal Reflux Disease GERD), as it has been effective in reducing symptoms. Dietary modifications, including avoiding spicy and tomato-based foods, will be maintained to further control GERD symptoms. For Benign Prostatic Hyperplasia BPH) and recurrent prostatitis, the patient is advised to resume tadalafil and complete the current course of Bactrim. A follow-up with urology is recommended to reassess the management plan and consider further diagnostic testing if symptoms persist. The patient will continue mirtazapine and lorazepam as needed for Generalized Anxiety Disorder, as these medications have been effective in managing symptoms. Regular exercise and stress management techniques are encouraged to support mental health. For Irritable Bowel Syndrome, the patient will maintain a gluten-free diet, which has improved bowel regularity and reduced symptoms. Chondrochondritis will be managed with Celebrex and topical lidocaine as needed for pain relief. The patient will continue using topical steroids and moisturizers for dermatological conditions including lentigo, seborrheic keratosis, and Quinn's disease. Preventative care measures include scheduling a colonoscopy for 2028 and consid ering a COVID-19 booster in the fall. Patient was informed and verbally consented to the use of an ambient scribe for clinic note documentation during this visit. Discussion Notes During the visit, we discussed the management of the patient's chronic conditions, including GERD, BPH, and anxiety disorder. I advised the patient to continue with current medications and dietary modifications to manage GERD and anxiety symptoms effectively. We also discussed the importance of resuming tadalafil for BPH management and completing the course of Bactrim for prostatitis. Preventative care measures were reviewed, including the scheduling of a colonoscopy and considering a COVID-19 booster in the fall. I emphasized the importance of regular follow-ups with urology and dermatology to monitor ongoing conditions. Patient Instructions - Continue taking omeprazole as prescribed for GERD management. - Maintain dietary modifications, avoiding spicy and tomato-based foods. - Resume tadalafil for BPH management and complete the Bactrim course for prostatitis. - Continue mirtazapine and lorazepam as needed for anxiety management. - Follow a gluten-free diet to manage Irritable Bowel Syndrome. - Use Celebrex and topical lidocaine as needed for chondrochondritis pain relief. - Apply topical steroids and moisturizers for skin conditions. - Schedule a colonoscopy for 2028 and consider a COVID-19 booster in the fall. Orders: Orders Comprehensive Met. Panel Today K21.9 - Gastro-esophageal reflux disease without esophagitis Free T4 (Free Thyroxine) Today K21.9 - Gastro-esophageal reflux disease without esophagitis Lipid Panel Today E78.00 - Pure hypercholesterolemia, unspecified, K21.9 - Gastro-esophageal reflux disease without esophagitis Prostate Specific Antigen Scr Today K21.9 - Gastro-esophageal reflux disease without esophagitis Complete Blood Count Auto Diff Today K21.9 - Gastro-esophageal reflux disease without esophagitis Thyroid Stimulating Hormone Today K21.9 - Gastro-esophageal reflux disease without esophagitis Vitamin B12 and Folate Today K21.9 - Gastro-esophageal reflux disease without esophagitis UA CC w/rflx Micro + Cult Today K21.9 - Gastro-esophageal reflux disease without esophagitis, R30.0 - Dysuria Medications: Refilled mirtazapine 3.75 mg (1/2 x 7.5 mg) PO BEDTIME 15 tabs 0RF 30 days
[2025-01-05 08:51] VITALS: BP 110/70; PULSE 57; TEMP 36.3; O2SAT 98; BMI 24.3
--- OUTSIDE RECORDS SUMMARY | 2025-01-05 09:00 | XMS_ITS | Data Portability ---
Author Organization JASPER Solorzano [facility] [address] Address [address] [place] [address] Assessment No assessment recorded. Plan of Treatment Reminders Order Date Submit Date Provider Last Modified By Organization Details Last Modified Time Details Appointments None recorded. Lab None recorded. Referral None recorded. Procedures None recorded. Surgeries None recorded. Imaging None recorded. Medication Orders amoxicillin 875 mg tablet 2022 023 [id number], [address], [place], [id number], 3 09:35:05 Patient TargetsNo targets recorded. Patient InstructionsNo instructions recorded. Reason for Referral None Reported. Problems Name Problem SNOMED Code Status Onset Date Resolution Date Notes Provider Name and Address Organization Details Recorded Time Essential tremor 405004377 Active 023 KALIA perez, [place] - [facility] 3 17:30:01 Anxiety 26731906 Active 023 KALIA perez, [place] - [facility] 3 17:30:09 Insomnia 771868039 Active 023 KALIA VILLA null, [place] - [...] height Body mass index (BMI) Body weight Pain severity - 0-10 verbal numeric rating [Score] - Reported Oxygen saturation Oxygen saturation in Arterial blood by Pulse oximetry Heart rate Respiratory rate Body temperature Systolic And Diastolic Provider Name and Address Organization Details Last Updated DateTime 3 177.8 cm 22.5 kg/m2 44142 g 2 99 % 99 % 60 /min 16 /min 97.6 [degF] 125/85 mm[Hg] KALIA VILLA [place] - [facility] 3 17:32:25 Social History Question Answer Notes LastModified by [employer] Details LastModified Time Tobacco Smoking Status Never Smoker KALIA VILLA null, [place] - [facility] 01/12/2023 17:30:52 Have You Recently Traveled Abroad? No Information not available 01/12/2023 Sex: Unknown Functional Status Question Answer Note LastModified by [employer] Details LastModified Time Do you use any [...] SNOMED-CT Code Diagnosis ICD10 Code Diagnosis Note [id number] Su Huston [facility] [address] [address] [place] [id number] 08/31/2022 16:45:38 08/31/2022 18:33:27 History and physical examination, occupation 672696202 Z02.1 [id number] [place] [address] [place] [address] 01/12/2023 17:00:17 01/12/2023 18:11:29 Acute right otitis media [id number] H66.91 - Use the medication s prescribed [...] Menendez Member ID Guarantor Name 01/12/2023 1 [place] [facility] [place] [id number] Mario Lynn [id number] Mario Lynn 08/31/2022 OC-ESCREEN Mario Lynn [id number] Mario Lynn Notes Date Note Type Note Provider Name and Address Organization Details Recorded Time 01/12/2023 text/html Ear Pain Brief HPIReported by PatientHPIFor location, patient reportspain radiates to jawbut reportsright. For severity, patient reportsinterferes with ability to sleepbut reportsno feverandable to perform daily activities. For associated symptoms, patient reportssense of fullness/pressurebut reportsno cough,no discharge from ear,no nasal congestion,no nasal discharge,no hearing loss,no tinnitus,no decreased hearing, andno muffled hearing. For onset/timing, patient reportsnew onset. For duration, patient reportsoccurs __. For quality, patient reportsno itching,no discharge from the ears, andno burning. For context, patient reportsno recent uri,no recent trauma,no recent ear infection,no recent swimming,no immunocompromise,no recent airplane travel, andbruxism. Grinds teeth every night and wondering if pain related to that Su Huston MD [address] [place], [address], [place] - [facility] 01/13/2023 09:38:04
== END 2025-01-05 12:39 | disposition home or self-care (01) ==
LOC: HO.HMCH 08:47
PROVIDERS: PCP Internal Medicine; Visit Provider Internal Medicine
DX: Z00.00 Encounter for general adult medical examination without abnormal findings (principal); N40.0 Benign prostatic hyperplasia without lower urinary tract symptoms; K58.0 Irritable bowel syndrome with diarrhea; K29.70 Gastritis, unspecified, without bleeding; F41.1 Generalized anxiety disorder

== ENCOUNTER 2025-01-08 06:20 | Outpatient (REF) | payer BC, SELFPAY ==
--- OUTSIDE RECORDS SUMMARY | 2025-01-08 06:23 | XMS_ITS | Patient Health Record ---
Author Organization [facility] [place] Address [address] [facility] [address] Care Team Providers Care Advertising Job Titles Name Role Phone TomiBrady Primary Care Provider Tam Stewart Unavailable [phone] Allergies No Known Allergies Reason For Referral [...] Risk Notes Problem Chronic ulcer of foot ([id number]) Non-pressure chronic ulcer of other part of left foot with fat layer exposed (L97.522) Active confirmed Plan Of Treatment Pending Test Test Name Order Date [id number] SKIN/TISSUE 02/23/2022 Insurance Providers Payer Name Payer Address Payer Phone Subscriber Number Group Number Insured Name Patient Relationship to Insured Coverage Start Date Coverage End Date [facility] [employer] [facility] [address] [place] [address] [id number] Mario Lynn Self - patient is the insured Medical (General) History Medical History History ICD Code Anxiety Fatty liver Reflux Irritable bowel syndrome Vitamin D deficiency Chicken pox Surgical History Surgery Date(Month/Year) Mole removal
--- OUTSIDE RECORDS SUMMARY | 2025-01-08 06:23 | XMS_ITS | Data Portability ---
Author Organization JASPER Solorzano s [address] Address [address] [place] [address] Assessment No assessment recorded. Plan of Treatment Reminders Order Date Submit Date Provider Last Modified By Organization Details Last Modified Time Details Appointments None recorded. Lab None recorded. Referral None recorded. Procedures None recorded. Surgeries None recorded. Imaging None recorded. Medication Orders amoxicillin 875 mg tablet 2022 023 [id number], [address], [place], [id number], 3 09:35:05 Patient TargetsNo targets recorded. Patient InstructionsNo instructions recorded. Reason for Referral None Reported. Problems Name Problem SNOMED Code Status Onset Date Resolution Date Notes Provider Name and Address Organization Details Recorded Time Essential tremor 578588781 Active 023 KALIA perez, [place] - [facility] 3 17:30:01 Anxiety 77436003 Active 023 KALIA perez, [place] - [facility] 3 17:30:09 Insomnia 117641664 Active 023 KALIA VILLA null, [place] - [...] Updated DateTime 3 177.8 cm 22.5 kg/m2 53238 g 2 99 % 99 % 60 /min 16 /min 97.6 [degF] 125/85 mm[Hg] KALIA VILLA PA - [facility] 3 17:32:25 Social History Question Answer Notes LastModified by Blip Details LastModified Time Tobacco Smoking Status Never Smoker KALIA VILLA null, [place] - [facility] 01/12/2023 17:30:52 Have You Recently Traveled Abroad? No Information not available 01/12/2023 Sex: Unknown Functional Status Question Answer Note LastModified by Blip Details LastModified Time Do you use any [...] SNOMED-CT Code Diagnosis ICD10 Code Diagnosis Note [id number] Su [facility] [address] [place] [id number] 08/31/2022 16:45:38 08/31/2022 18:33:27 History and physical examination, occupation 205385639 Z02.1 [id number] [place] [address] [place] [address] 01/12/2023 17:00:17 01/12/2023 18:11:29 Acute right otitis media 611069665 H66.91 - Use the medication s prescribed [...] ID Guarantor Name 01/12/2023 1 [place]: HMO [facility] [place] [id number] Mario Lynn [id number] Mario Lynn 08/31/2022 OC-ESCREEN Mario Lynn [id number] Mario Lynn Notes Date Note Type [...] Su Huston MD [address] [place], [address], [place] - [facility] 01/13/2023 09:38:04
[2025-01-08 06:33] LABS: MANUAL DIFF FLAG NO
[2025-01-08 07:28] LABS: Hematocrit 45.4 % (42.0-52.0); Hemoglobin 15.6 g/dl (14.0-18.0); Imm Gran Abs Auto 0.04 X10*3/uL (0.00-0.03); Imm Gran Pct Auto 0.5 % (0.0-0.4); Lymphocytes Absolute Auto 1.8 X10*3/uL (1.2-4.9); Mean Corpuscular HGB Conc 34.4 g/dl (31.0-36.0); Mean Corpuscular Hemoglobin 31.1 pg (27.0-33.0); Mean Corpuscular Volume 90.4 fL (80.0-98.0); NRBC Abs Auto 0.000 X10*3/uL (0.0-0.012); NRBC Pct Auto 0.0 /100WBC (0.0-0.2); Platelet Count 257 X10*3/uL (160-400); Red Blood Count 5.02 X10*6/uL (4.60-5.80); White Blood Count 8.8 X10*3/uL (4.8-10.8)
[2025-01-08 07:39] LABS: Appearance Urine Clear; Glucose Urine UA Negative (Negative); PH 7.5 (5.0-9.0); Specific Gravity - Urine 1.010 (1.005-1.025)
[2025-01-08 08:06] LABS: Alanine Aminotransferase 22 U/L (0-40); Albumin Level 4.2 g/dL (3.5-5.0); Alkaline Phosphatase 39 U/L (39-117); Anion Gap 11 (12-20); Aspartate Amino Transferase 24 U/L (5-37); Blood Urea Nitrogen 13 mg/dL (9-16); Calcium 9.2 mg/dL (8.4-10.2); Carbon Dioxide 27 mmol/L (22-29); Chloride 108 mmol/L (96-108); Cholesterol 182 mg/dL (<200); Estimated Glomerular Filt Rate > 60; HDL Cholesterol 47 mg/dL (>40); Potassium 3.8 mmol/L (3.3-5.1); Sodium 142 mmol/L (135-145); Total Protein 6.6 g/dL (6.5-8.0); Triglycerides 78 mg/dL (<150)
[2025-01-08 08:23] LABS: Free T4 (Free Thyroxine) 1.06 ng/dL (0.71-1.85); Thyroid Stimulating Hormone 1.87 uIU/mL (0.32-4.0)
[2025-01-08 08:34] LABS: Folate 4.9 ng/mL (> or = 4.0); Vitamin B12 336 pg/mL (200-900)
== END 2025-01-08 06:21 | disposition home or self-care (01) ==
LOC: HO.LAB 06:20
PROVIDERS: PCP Internal Medicine; Visit Provider Internal Medicine
DX: K21.9 Gastro-esophageal reflux disease without esophagitis (principal); E78.00 Pure hypercholesterolemia, unspecified; R30.0 Dysuria
CPT/HCPCS: 36415; 80053; 80061; 81003; 82607; 82746; 84153; 84439; 84443; 85025